=== PATIENT | female | born 1990 | race Caucasian/White ===

== ENCOUNTER 2016-04-01 21:46 | Emergency (ER) | payer SELFPAY ==
[2016-03-01 22:10] VITALS: BP 158/98
[~2016-04-01 21:46] MED LIST: ACET-704 PO; FLUO10CA13 PO; HYDR-963 PO; HYDR-971 PO; HYDR25CA PO; IBUP-1060 PO; NAPR550T PO; NITR100C62 PO; ONDA4TAB10 SL; ONDA4TAB7 PO; OXYC-323 PO; PRED20TA PO
[2016-04-01] MEDS ORDERED: MORPHINE SULFATE 4 MG/ML DISP.SYRIN. IM ONE (22:15)
[2016-04-01 22:19] LABS: NEG OBC UR NEG; POS OBC UR POS
--- NOTE | 2016-04-01 22:46 | ED.ADGEN ---
Past Medical History Past Medical History: Depression, Kidney Infection, Ovarian Cyst, Other Additional Past Medical Histor: PCOS,morbid obesity Past Surgical History: Cholecystectomy Additional Information: 03/18 ppd Alcohol Use: Rarely Drug Use: None Adult General Chief Complaint Chief Complaint: NAUSEA/VOMITING/DIARRHA HPI HPI Patient is a 26 year old woman, history of PCOS, renal calculi, morbid obesity , urinary tract infection, who presents to the emergency department with complaint of recurrence of her chronic lower abdominal pain. Patient states that she has an appointment for next left to be performed with her DRINK WAITER on 01 May, as her DRINK WAITER believes that she is experiencing endometriosis as the cause of these recurrent symptoms. Patient states that she is having nausea, and some vomiting, ecchymosis expressing cramping in her lower pelvic region which she states has not resolved with use of Tylenol home. She denies any fevers or chills, any injuries, any weakness emesis or tingling, any discharge or drainage, or any change from her typical Ellickson's. She states that she believes she is about to begin her period and this is the cause of the timing of the symptoms. She states that she did attempt to contact her DRINK WAITER wasn't able to hold the office. She cannot recall the name of her DRINK WAITER at this time. She states that previously she been given Dilaudid and Percocet for the symptoms. Denies any urinary complaints. No back pain or flank pain. Review of Systems Review of Systems Constitutional: Denies fever or chills. [] Eyes: Denies change in visual acuity. [] HENT: Denies nasal congestion or sore throat. [] Respiratory: Denies cough or shortness of breath. [] Cardiovascular: Denies chest pain or edema. [] GI: Lower cramping abdominal pain, across her pelvis, associated nausea, vomiting, bloody stools or diarrhea. : Denies dysuria. [] Musculoskeletal: Denies back pain or joint pain. [] Integument: Denies rash. [] Neurologic: Denies headache, focal weakness or sensory changes. [] Endocrine: Denies polyuria or polydipsia. [] Lymphatic: Denies swollen glands. [] Psychiatric: Denies depression or anxiety. [] Current Medications Current Medications Current Medications Medications (Trade) Dose Ordered Sig/Sharri Start Time Stop Time Status Last Admin Dose Admin Morphine Sulfate 4 mg 1X ONCE 04/01/16 22:15 04/01/16 22:16 DC 04/01/16 22:24 4 MG Allergies Allergies Allergies Coded Allergies Type Severity Reaction Last Updated Verified codeine Allergy Intermediate 11/11/15 Yes duloxetine Allergy Intermediate hives 05/12/15 Yes fentanyl Allergy Intermediate hives 05/12/15 Yes ketorolac Allergy Intermediate hives 05/12/15 Yes paroxetine Allergy Intermediate hives 05/12/15 Yes promethazine Allergy Intermediate hives 05/12/15 Yes tramadol Allergy Intermediate hives, Tolerates Morphine 05/12/15 Yes prochlorperazine Adverse Reaction Intermediate Anxiety 11/25/14 Yes Physical Exam Physical Exam Constitutional: Well developed, well nourished, no acute distress, non-toxic appearance. [] HENT: Normocephalic, atraumatic, bilateral external ears normal, oropharynx moist, no oral exudates, nose normal. [] Eyes: PERRLA, EOMI, conjunctiva normal, no discharge. [] Neck: Normal range of motion, no tenderness, supple, no stridor. [] Cardiovascular:Heart rate regular rhythm, no murmur , S1, S2, rubs or gallops. [ ] Lungs & Thorax: Bilateral breath sounds clear to auscultation, no wheezing, rhonchi, rales. No chest wall tenderness or crepitus. [] Abdomen: Bowel sounds normal, soft, obese, tenderness palpation across the pelvic region on the left. No masses, no pulsatile masses. [] Skin: Warm, dry, no erythema, no rash. [] Back: No tenderness, no CVA tenderness. [] Extremities: No tenderness, no cyanosis, no clubbing, ROM intact, no edema. [] Neurologic: Alert and oriented X 3, normal motor function, normal sensory function, no focal deficits noted. [] Psychologic: Affect normal, judgement normal, mood normal. [] Current Patient Data Vital Signs Vital Signs Date Time Temp Pulse Resp B/P Pulse Ox O2 Delivery O2 Flow Rate FiO2 04/01/16 22:24 18 04/01/16 22:09 98.0 112 163/88 97 Room Air 98.0 Lab Values Laboratory Tests Test 04/01/16 22:00 Urine Test Negative (NEG) EKG EKG Not indicated. [] Radiology/Procedures Radiology/Procedures Not indicated. [] Course & Med Decision Making Course & Med Decision Making Pertinent Labs and Imaging studies reviewed. (See chart for details) HCG is negative. Review of records show that the patient has been seen in the ED several times previously for similar complaints, at her last visit on March 01 she informed the care provider that she had an exploratory laparoscopy scheduled for a week and a half from that date. I did discuss this with the patient, she states that that was only her initial appointment, and that she does have the exploratory laparoscopy scheduled for next month as she initially stated. Patient is ambulatory in the room at this time, and although initially was preparing for a pelvic examination,m at this point states that she does not believe she is in need of a pelvic, as "nothing is different". I discussed with patient that I'm concerned by the pattern of ED usage for this chronic medical condition, I stated that I can evaluate her further at this time , however I will not be able to send her home with narcotics. Patient states that she understands this, is agreeable to receiving a dose of medication in the ED, and will follow up with her FINISH CARPENTER tomorrow morning. She will return for concerning symptoms as stated. Patient given a dose of morphine in the ED, and was discharged with plan as above with significant other at bedside. Dragon Disclaimer Dragon Disclaimer This electronic medical record was generated, in whole or in part, using a voice recognition dictation system. Departure Impression: Primary Impression: Pelvic pain Condition: IMPROVED DANTE HERNADEZ DO Apr 01, 2016 22:46
== END 2016-04-01 22:43 | disposition home or self-care (01) ==
LOC: ER 21:46
DX: R10.2 Pelvic and perineal pain (principal); R11.2 Nausea with vomiting, unspecified; F32.9 Major depressive disorder, single episode, unspecified; F17.200 Nicotine dependence, unspecified, uncomplicated; E66.01 Morbid (severe) obesity due to excess calories; Z87.442 Personal history of urinary calculi; Z87.440 Personal history of urinary (tract) infections; Z90.49 Acquired absence of other specified parts of digestive tract; Z88.5 Allergy status to narcotic agent; Z88.8 Allergy status to other drugs, medicaments and biological substances
CPT/HCPCS: 81025; 96372; 99283; J2270

== ENCOUNTER 2016-05-17 20:34 | Emergency (ER) | payer OTHER ==
[~2016-05-17] VITALS: Ht 162.6 cm; Wt 176.9 kg
[2016-05-17 20:42] VITALS: BP 160/109
[2016-05-17] MEDS ORDERED: OXYCODONE/APAP 5/325 TABLET. PO ONE (21:15)
[2016-05-17] MEDS ORDERED: OXYC-323 PO (21:53)
--- NOTE | 2016-05-17 21:54 | PHYS DOC ---
Past Medical History Past Medical History: Depression, Kidney Infection, Ovarian Cyst, Other Additional Past Medical Histor: PCOS,morbid obesity Past Surgical History: Cholecystectomy Alcohol Use: Rarely Drug Use: None Adult General Chief Complaint Chief Complaint: KNEE INJURY HPI HPI Patient is a 26 year old female who presents with left knee pain after injury at 2000 today. She states that she was going down the stairs and missed the last step. She twisted her knee but denies falling on the knee. She has not been able to walk since the injury. She does not have a PCP. Review of Systems Review of Systems Constitutional: Denies fever or chills. [] Musculoskeletal: Denies back pain. Reports left knee pain. Integument: Denies rash or skin lesions. Denies laceration, abrasion, or ecchymosis. Neurologic: Denies headache, focal weakness or sensory changes. [] Current Medications Current Medications Current Medications Medications (Trade) Dose Ordered Sig/Sharri Start Time Stop Time Status Last Admin Dose Admin Oxycodone/ Acetaminophen (Percocet 5/325) 1 tab 1X ONCE 05/17/16 21:15 05/17/16 21:16 DC 05/17/16 21:14 1 TAB Allergies Allergies Allergies Coded Allergies Type Severity Reaction Last Updated Verified codeine Allergy Intermediate 11/11/15 Yes duloxetine Allergy Intermediate hives 05/12/15 Yes fentanyl Allergy Intermediate hives 05/12/15 Yes ketorolac Allergy Intermediate hives 05/12/15 Yes paroxetine Allergy Intermediate hives 05/12/15 Yes promethazine Allergy Intermediate hives 05/12/15 Yes tramadol Allergy Intermediate hives, Tolerates Morphine 05/12/15 Yes prochlorperazine Adverse Reaction Intermediate Anxiety 11/25/14 Yes Physical Exam Physical Exam Constitutional: Well developed, well nourished, no acute distress, non-toxic appearance. Morbidly obese. HENT: Normocephalic, atraumatic, oropharynx moist. [] Eyes: PERRLA, EOMI, conjunctiva normal, no discharge. [] Skin: Warm, dry, no erythema, no rash. There is no laceration, abrasion, ecchymosis, or other external sign of injury. Extremities: Lateral left knee tenderness, ROM significantly decreased due to pain, no edema. 2+ DP pulse. Light touch sensation intact distally. Neurologic: Alert and oriented X 3, normal motor function, normal sensory function, no focal deficits noted. [] Psychologic: Affect normal, judgement normal, mood normal. [] Current Patient Data Vital Signs Vital Signs Date Time Temp Pulse Resp B/P Pulse Ox O2 Delivery O2 Flow Rate FiO2 05/17/16 21:14 18 05/17/16 20:42 98.2 98 98 Room Air 98.2 EKG EKG [] Radiology/Procedures Radiology/Procedures Three-view x-ray of the left knee reviewed and interpreted by myself with Dr. Richardson. There is a patellar tendon avulsion fracture at the tibial tuberosity. Course & Med Decision Making Course & Med Decision Making Pertinent Labs and Imaging studies reviewed. (See chart for details) Patient presents with lateral left knee pain after twisting injury. On initial exam, she is only tender over the lateral side of the knee. X-ray shows avulsion fracture of the patellar tendon at the tibial tuberosity. On reexamination, she is tender over the tibial tuberosity. A knee immobilizer is applied. The patient has crutches at home. She is discharged home with prescription for Percocet for pain. She is instructed to follow-up with orthopedics. Return precautions were discussed. She verbalizes understanding and agrees with plan. Dragon Disclaimer Dragon Disclaimer This electronic medical record was generated, in whole or in part, using a voice recognition dictation system. Departure Departure Impression: Primary Impression: Avulsion fracture of tibial tuberosity Disposition: 01 HOME, SELF-CARE Condition: STABLE Referrals: GERMAIN TOWNSEND II, MD Patient Instructions: Avulsion Fracture, Crutch Use, [id number], Knee Immobilizer, [id number] Additional Instructions: You have an avulsion fracture, or chip fracture, where the patellar tendon inserts into the tibia. Please keep the knee immobilizer on for the next 48 hours. If you are pain-free after 48 hours, you may remove the knee immobilizer. Otherwise, leave the immobilizer in place until follow-up with orthopedics. Please follow-up with the orthopedic doctor listed below. Please use crutches to remain nonweightbearing as long as you have the knee immobilizer on. Please take the prescribed pain medication as directed. Do not drive or operate heavy machinery while taking pain medication. Return to the emergency department if you have any new or concerning symptoms. Scripts Oxycodone/Apap 5-325 (Percocet 5-325 Mg Tablet)1 Each Tablet1 Tab PO PRN Q6HRS PRN PAIN #20 TAB Prov:DANTE OLIVEIRA 05/17/16 DANTE OLIVEIRA May 17, 2016 21:54
--- NOTE | 2016-05-18 08:37 | RAD ---
Examination: 3 views of the left knee History: History of twisting knee injury, lateral knee pain Comparison: None available Findings: The alignment of the knee joint grossly appears unremarkable. Small knee joint effusion is identified There is a fragmented appearance of the tibial tuberosity could be due to congenital nonfusion or avulsion fracture. Impression: Fragmented appearance of the tibial tuberosity could be congenital nonfusion or avulsion fracture. Correlate for point tenderness. Follow-up MRI can be considered.
== END 2016-05-17 22:00 | disposition home or self-care (01) ==
LOC: ER 20:34
DX: S82.152A Displaced fracture of left tibial tuberosity, initial encounter for closed fracture (principal); F32.9 Major depressive disorder, single episode, unspecified; E28.2 Polycystic ovarian syndrome; E66.01 Morbid (severe) obesity due to excess calories; Z68.44 Body mass index [BMI] 60.0-69.9, adult; Z90.49 Acquired absence of other specified parts of digestive tract; Z88.5 Allergy status to narcotic agent; Z88.8 Allergy status to other drugs, medicaments and biological substances; X58.XXXA Exposure to other specified factors, initial encounter; Y93.89 Activity, other specified; Y92.89 Other specified places as the place of occurrence of the external cause; Y99.8 Other external cause status
CPT/HCPCS: 29505; 73562; 99284-25

== ENCOUNTER 2016-05-21 10:59 | Emergency (ER) | payer OTHER ==
[~2016-05-21] VITALS: Ht 162.6 cm; Wt 176.9 kg
[2016-05-21 11:29] VITALS: BP 167/118
[2016-05-21] MEDS ORDERED: MORPHINE SULFATE 10 MG/ML VIAL. IM ONE (12:15)
[2016-05-21] MEDS ORDERED: ONDANSETRON ODT 4 MG TAB.RAPDIS PO ONE (12:15)
--- NOTE | 2016-05-21 12:27 | PHYS DOC ---
Past Medical History Past Medical History: Depression, Kidney Infection, Ovarian Cyst, Other Additional Past Medical Histor: PCOS,morbid obesity Past Surgical History: Cholecystectomy Alcohol Use: Rarely Drug Use: None Adult General Chief Complaint Chief Complaint: PAIN CONTROL HPI HPI Patient is a 26 year old female who presents with moderate left knee pain that has been going on for the last 5 days. Patient was seen in the ED 5 days ago when was diagnosed with a possible patellar fracture. She is currently stating she will follow-up with her doctor at orthopedic next week. She states the doctor at requested her to come to the ED to be given oxycodone without Tylenol because she states the Tylenol is making her vomit and she is out of pain medicines too. Review of Systems Review of Systems Constitutional: Denies fever or chills [] Eyes: Denies change in visual acuity, redness, or eye pain [] Musculoskeletal: Knee pain Integument: Denies rash or skin lesions [] Neurologic: Denies headache, focal weakness or sensory changes [] Endocrine: Denies polyuria or polydipsia [] Current Medications Current Medications Current Medications Medications (Trade) Dose Ordered Sig/Sharri Start Time Stop Time Status Last Admin Dose Admin Morphine Sulfate 5 mg 1X ONCE 05/21/16 12:15 05/21/16 12:16 DC 05/21/16 12:39 5 MG Ondansetron HCl (Zofran Odt) 4 mg 1X ONCE 05/21/16 12:15 05/21/16 12:16 DC 05/21/16 12:38 4 MG Allergies Allergies Allergies Coded Allergies Type Severity Reaction Last Updated Verified codeine Allergy Intermediate 11/11/15 Yes duloxetine Allergy Intermediate hives 05/12/15 Yes fentanyl Allergy Intermediate hives 05/12/15 Yes ketorolac Allergy Intermediate hives 05/12/15 Yes paroxetine Allergy Intermediate hives 05/12/15 Yes promethazine Allergy Intermediate hives 05/12/15 Yes tramadol Allergy Intermediate hives, Tolerates Morphine 05/12/15 Yes prochlorperazine Adverse Reaction Intermediate Anxiety 11/25/14 Yes Physical Exam Physical Exam Constitutional: Well developed, well nourished, no acute distress, non-toxic appearance. [] HENT: Normocephalic, atraumatic, bilateral external ears normal, oropharynx moist, no oral exudates, nose normal. [] Back: No tenderness, no CVA tenderness. [] Extremities: Obese patient, and left knee with no obvious edema or ecchymosis. Tenderness on palpation of the left anterior knee. Patient not able to tolerate range of motion to the left knee. +2 left pedal pulse. Cap refill less than 2 seconds and left lower extremity. Sensation intact to the left lower extremity. Neurologic: Alert and oriented X 3, normal motor function, normal sensory function, no focal deficits noted. [] Psychologic: Affect normal, judgement normal, mood normal. [] Current Patient Data Vital Signs Vital Signs Date Time Temp Pulse Resp B/P Pulse Ox O2 Delivery O2 Flow Rate FiO2 05/21/16 12:39 Room Air 05/21/16 11:10 98.0 119 20 97 98.0 EKG EKG [] Radiology/Procedures Radiology/Procedures [] Course & Med Decision Making Course & Med Decision Making Pertinent Labs and Imaging studies reviewed. (See chart for details) Patient is in the ED with left knee pain after being diagnosed with a possible patellar fracture 5 days ago. She is requesting oxycodone with no Tylenol stating that Tylenol is making her vomit. Informed patient I can give her Zofran to take with the oxycodone but I will not give her plain oxycodone. She has an appointment at orthopedic doctor next week. Informed patient to make sure she follows-up, informed patient if she keeps coming to the ED for chronic pain management we will stop giving her pain medicine. Dragon Disclaimer Dragon Disclaimer This electronic medical record was generated, in whole or in part, using a voice recognition dictation system. Departure Departure Impression: Primary Impression: Knee pain, left Disposition: 01 HOME, SELF-CARE Condition: STABLE Referrals: NO PCP (PCP) Follow-up with your own orthopedic doctor at hospital as soon as possible Patient Instructions: Knee - Patella Problems Additional Instructions: You were seen for ongoing knee pain. Please follow up with your doctor at as soon as possible Scripts Ondansetron (Zofran Odt)4 Mg Tab.rapdis1 Tab SL Q8HRS #15 TAB Prov:LB MONSON APRN 05/21/16 Oxycodone/Apap 5-325 (Percocet 5-325 Mg Tablet)1 Each Tablet1-2 Tab PO Q4-6HRS # 12 TAB Prov:MUTUNGA,LB AASHISH 05/21/16 Oxycodone/Apap 5-325 (Percocet 5-325 Mg Tablet)1 Each Tablet1-2 Tab PO Q4-6HRS # 12 TAB Prov:IONALB AASHISH 05/21/16 Ondansetron (Zofran Odt)4 Mg Tab.rapdis1 Tab SL Q8HRS #15 TAB Prov:LB MONSON APRN 05/21/16 Problem Qualifiers Primary Impression: Knee pain, left Chronicity: acute Qualified Code: M25.562 - Pain in left knee LB MONSON AASHISH May 21, 2016 12:27
[2016-05-21] MEDS ORDERED: OXYC-323 PO ×2 (12:33→12:45)
[2016-05-21] MEDS ORDERED: ONDA4TAB10 SL ×2 (12:33→12:45)
== END 2016-05-21 12:47 | disposition home or self-care (01) ==
LOC: ER 10:59
DX: M25.562 Pain in left knee (principal); E66.01 Morbid (severe) obesity due to excess calories; F32.9 Major depressive disorder, single episode, unspecified; E28.2 Polycystic ovarian syndrome; Z68.44 Body mass index [BMI] 60.0-69.9, adult; Z88.5 Allergy status to narcotic agent; Z88.8 Allergy status to other drugs, medicaments and biological substances; Z90.49 Acquired absence of other specified parts of digestive tract
CPT/HCPCS: 96372; 99283; J2270; Q0162

== ENCOUNTER 2016-06-16 18:26 | Emergency (ER) | payer OTHER ==
[~2016-06-16] VITALS: Ht 162.6 cm; Wt 179.2 kg
--- NOTE | 2016-06-16 19:20 | ED.ADGEN ---
Past Medical History Past Medical History: Depression, Kidney Infection, Ovarian Cyst, Other Additional Past Medical Histor: PCOS,morbid obesity Past Surgical History: Cholecystectomy Alcohol Use: None Drug Use: None Adult General Chief Complaint Chief Complaint: PELVIC PAIN HPI HPI Patient is a 26 year old female presents emergency department complaining of lower abdominal pain. She states the pain is consistent with her endometriosis except for that it usually occurs 2 days prior to her. In this time is been going on for 3 days that she has yet to start her period. She denies any nausea or vomiting but reports that ibuprofen that she is been taking has not been adequate for the pain. Review of Systems Review of Systems Constitutional: Denies fever or chills. [] Eyes: Denies change in visual acuity. [] HENT: Denies nasal congestion or sore throat. [] Respiratory: Denies cough or shortness of breath. [] Cardiovascular: Denies chest pain or edema. [] GI: Denies abdominal pain, nausea, vomiting, bloody stools or diarrhea. [] : Denies dysuria. [] Musculoskeletal: Denies back pain or joint pain. [] Integument: Denies rash. [] Neurologic: Denies headache, focal weakness or sensory changes. [] Endocrine: Denies polyuria or polydipsia. [] Lymphatic: Denies swollen glands. [] Psychiatric: Denies depression or anxiety. [] Current Medications Current Medications Current Medications Medications (Trade) Dose Ordered Sig/Sharri Start Time Stop Time Status Last Admin Dose Admin Hydromorphone HCl (Dilaudid) 2 mg 1X ONCE 06/16/16 19:30 06/16/16 19:31 DC 06/16/16 19:24 2 MG Allergies Allergies Allergies Coded Allergies Type Severity Reaction Last Updated Verified codeine Allergy Intermediate 11/11/15 Yes duloxetine Allergy Intermediate hives 05/12/15 Yes fentanyl Allergy Intermediate hives 05/12/15 Yes ketorolac Allergy Intermediate hives 05/12/15 Yes paroxetine Allergy Intermediate hives 05/12/15 Yes promethazine Allergy Intermediate hives 05/12/15 Yes tramadol Allergy Intermediate hives, Tolerates Morphine 05/12/15 Yes prochlorperazine Adverse Reaction Intermediate Anxiety 11/25/14 Yes Physical Exam Physical Exam Constitutional: Well developed, well nourished, no acute distress, non-toxic appearance. [] HENT: Normocephalic, atraumatic, bilateral external ears normal, oropharynx moist, no oral exudates, nose normal. [] Eyes: PERRLA, EOMI, conjunctiva normal, no discharge. [] Neck: Normal range of motion, no tenderness, supple, no stridor. [] Cardiovascular:Heart rate regular rhythm, no murmur [] Lungs & Thorax: Bilateral breath sounds clear to auscultation [] Abdomen: Bowel sounds normal, soft, no tenderness, no masses, no pulsatile masses. [] Skin: Warm, dry, no erythema, no rash. [] Back: No tenderness, no CVA tenderness. [] Extremities: No tenderness, no cyanosis, no clubbing, ROM intact, no edema. [] Neurologic: Alert and oriented X 3, normal motor function, normal sensory function, no focal deficits noted. [] Psychologic: Affect normal, judgement normal, mood normal. [] Current Patient Data Vital Signs Vital Signs Date Time Temp Pulse Resp B/P Pulse Ox O2 Delivery O2 Flow Rate FiO2 06/16/16 20:04 Room Air 06/16/16 18:35 98.6 115 24 196/97 95 98.6 EKG EKG [] Radiology/Procedures Radiology/Procedures [] Course & Med Decision Making Course & Med Decision Making Pertinent Labs and Imaging studies reviewed. (See chart for details) Patient got good pain relief with a dose of IM Dilaudid here. I did write her prescription for Percocet and instructed her to follow-up with her MEDIA SALES REPRESENTATIVE tomorrow. [] Dragon Disclaimer Dragon Disclaimer This electronic medical record was generated, in whole or in part, using a voice recognition dictation system. ANTIONE CAR MD Jun 16, 2016 19:19
[2016-06-16] MEDS ORDERED: HYDROMORPHONE 2 MG/ML VIAL. IM ONE (19:30)
[2016-06-16 20:10] VITALS: BP 159/82
[2016-06-16] MEDS ORDERED: OXYC-323 PO (20:13)
== END 2016-06-16 20:25 | disposition home or self-care (01) ==
LOC: ER 18:26
DX: R10.30 Lower abdominal pain, unspecified (principal); E66.01 Morbid (severe) obesity due to excess calories; Z68.44 Body mass index [BMI] 60.0-69.9, adult; Z90.49 Acquired absence of other specified parts of digestive tract; Z88.6 Allergy status to analgesic agent; Z88.5 Allergy status to narcotic agent; Z88.8 Allergy status to other drugs, medicaments and biological substances
CPT/HCPCS: 96372; 99283; J1170

== ENCOUNTER 2016-06-26 17:49 | Emergency (ER) | payer OTHER ==
[~2016-06-26] VITALS: Ht 162.6 cm; Wt 176.9 kg
[2016-06-26 18:24] VITALS: BP 159/82
[2016-06-26] MEDS ORDERED: HYDROMORPHONE 2 MG/ML VIAL. IV ONE (20:30)
[2016-06-26] MEDS ORDERED: ONDANSETRON PF 4 MG/2 ML VIAL. IV ONE (20:30)
--- NOTE | 2016-06-26 20:30 | PHYS DOC ---
Past Medical History Past Medical History: Depression, Kidney Infection, Ovarian Cyst, Other Additional Past Medical Histor: PCOS,morbid obesity, endometriosis Past Surgical History: Cholecystectomy Alcohol Use: None Drug Use: None Adult General Chief Complaint Chief Complaint: PELVIC PAIN HPI HPI Patient is a 26 year old female who presents with complaint of severe pelvic pain. Patient said multiple visits to the emergency department for similar complaints. Patient has long-standing endometriosis and chronic recurrent pelvic pain. Patient states that her symptoms are similar to previous exacerbations. Patient was seen on June 15 at this facility and was treated with IM Dilaudid which helped with the patient's pain. Patient was taking Percocet, Zofran, and ibuprofen. Patient states she ran out of her Percocet which has caused her symptoms to worsen. The patient has associated nausea. Patient denies fever, dysuria, vaginal bleeding, or abnormal vaginal discharge. Patient states that she is here for pain control. Patient rates her pain currently is 10 out of 10. Review of Systems Review of Systems Constitutional: Denies fever or chills [] Eyes: Denies change in visual acuity, redness, or eye pain [] HENT: Denies nasal congestion or sore throat [] Respiratory: Denies cough or shortness of breath [] Cardiovascular: Denies chest pain or edema [] GI: Nausea, abdominal pain, denies bloody stools or diarrhea [] : Pelvic pain [] Musculoskeletal: Denies back pain or joint pain [] Integument: Denies rash or skin lesions [] Neurologic: Denies headache, focal weakness or sensory changes [] Current Medications Current Medications Current Medications Medications (Trade) Dose Ordered Sig/[facility] Start Time Stop Time Status Last Admin Dose Admin Hydromorphone HCl (Dilaudid) 1 mg 1X ONCE 06/26/16 20:30 06/26/16 20:31 DC 06/26/16 20:37 1 MG Ondansetron HCl (Zofran) 4 mg 1X ONCE 06/26/16 20:30 06/26/16 20:31 DC 06/26/16 20:37 4 MG Oxycodone/ Acetaminophen (Percocet 10/325) 1 tab 1X ONCE 06/26/16 21:15 06/26/16 21:16 DC 06/26/16 21:20 1 TAB Allergies Allergies Allergies Coded Allergies Type Severity Reaction Last Updated Verified codeine Allergy Intermediate 11/11/15 Yes duloxetine Allergy Intermediate hives 05/12/15 Yes fentanyl Allergy Intermediate hives 05/12/15 Yes ketorolac Allergy Intermediate hives 05/12/15 Yes paroxetine Allergy Intermediate hives 05/12/15 Yes promethazine Allergy Intermediate hives 05/12/15 Yes tramadol Allergy Intermediate hives, Tolerates Morphine 05/12/15 Yes prochlorperazine Adverse Reaction Intermediate Anxiety 11/25/14 Yes Physical Exam Physical Exam Constitutional: Alert, afebrile, morbidly obese, appears in moderate discomfort. [] HENT: Normocephalic, atraumatic, bilateral external ears normal, oropharynx moist, no oral exudates, nose normal. [] Eyes: PERRLA, EOMI, conjunctiva normal, no discharge. [] Neck: Normal range of motion, no tenderness, supple, no stridor. [] Cardiovascular:Heart rate regular rhythm, no murmur [] Lungs & Thorax: Bilateral breath sounds clear to auscultation [] Abdomen: Bowel sounds normal, soft, suprapubic tenderness to palpation, no masses, no pulsatile masses. [] Skin: Warm, dry, no erythema, no rash. [] Back: No tenderness, no CVA tenderness. [] Extremities: No tenderness, no cyanosis, no clubbing, ROM intact, no edema. [] Neurologic: Alert and oriented X 3, normal motor function, normal sensory function, no focal deficits noted. [] Current Patient Data Vital Signs Vital Signs Date Time Temp Pulse Resp B/P Pulse Ox O2 Delivery O2 Flow Rate FiO2 06/26/16 21:20 Room Air 06/26/16 18:24 98.4 109 28 159/82 98 98.4 Lab Values Laboratory Tests Test 06/26/16 19:47 06/26/16 20:45 POC Urine HCG, Qualitative Hcg negative (Negative) Urine Collection Type Unknown Urine Color Yellow Urine Clarity Clear Urine pH 8.0 Urine Specific [place] 1.015 Urine Protein Negativemg/dL (NEG-TRACE) Urine Glucose (UA) Negativemg/dL (NEG) Urine Ketones (Stick) Negativemg/dL (NEG) Urine Blood Negative (NEG) Urine Nitrite Negative (NEG) Urine Bilirubin Negative (NEG) Urine Urobilinogen Dipstick 0.2mg/dL (0.2 mg/dL) Urine Leukocyte Esterase Negative (NEG) Urine RBC 0/HPF (0-2) Urine WBC 0/HPF (0-4) Urine Squamous Epithelial Cells Few/LPF Urine Bacteria 0/HPF (0-FEW) EKG EKG Not performed [] Radiology/Procedures Radiology/Procedures Not performed [] Course & Med Decision Making Course & Med Decision Making Pertinent Labs and Imaging studies reviewed. (See chart for details) The patient has multiple visits to this emergency department for similar complaints. I am highly suspicious of drug-seeking behavior in this patient. After speaking with the patient, I agreed to treat the patient with an initial dose of IV Dilaudid to assist with immediate pain control which did help with patient's symptoms. The patient was also given an oral dose of Percocet which she took in the emergency department. I did explain to the patient that due to the chronic nature of her symptoms, I would not be able to write any narcotic prescription medications for the patient fell as I recommended that she follow- up with her primary doctor in order to receive further prescriptions for her chronic pain syndrome. He recommended that the patient come back to the emergency department for any worsening symptoms. Patient was understanding and in agreement with treatment plan. Dragon Disclaimer Dragon Disclaimer This electronic medical record was generated, in whole or in part, using a voice recognition dictation system. Departure Departure Impression: Primary Impression: Chronic pelvic pain in female Disposition: 01 HOME, SELF-CARE Condition: IMPROVED Referrals: NO PCP (PCP) Patient Instructions: Chronic Pain Additional Instructions: Follow-up with a primary physician in the next 3-5 days. Return to the emergency department for any worsening symptoms. Scripts Ondansetron (Zofran Odt)4 Mg Tab.rapdis1 Tab SL Q8HRS PRN NAUSEA/VOMITING #15 TAB Prov:HUNG EDGE MD 06/26/16 HUNG EDGE MD Jun 26, 2016 20:30
[2016-06-26 20:49] LABS: BILIRUBIN,URINE NEGATIVE (NEG); GLUCOSE,URINE NEGATIVE (NEG); NITRITE,URINE NEGATIVE (NEG); PROTEIN,URINE NEGATIVE (NEG-TRACE); UROBILINOGEN,URINE 0.2 mg/dL (0.2 mg/dL)
[2016-06-26 20:56] LABS: BACTERIA,URINE 0 /HPF (0-FEW); RBC,URINE 0 /HPF (0-2); SQUAMOUS EPITHELIAL CELL,UR FEW /LPF; WBC,URINE 0 /HPF (0-4)
[2016-06-26] MEDS ORDERED: ONDA4TAB10 SL (21:15)
[2016-06-26] MEDS ORDERED: OXYCODONE/APAP 10/325 TABLET. PO ONE (21:15)
[2016-06-27] MEDS ORDERED: ONDA4TAB7 PO (16:23)
[2016-06-27] MEDS ORDERED: DICY10CA53 PO (16:23)
== END 2016-06-26 21:24 | disposition home or self-care (01) ==
LOC: ER 17:49
DX: G89.29 Other chronic pain (principal); R10.2 Pelvic and perineal pain; E28.2 Polycystic ovarian syndrome; Z90.49 Acquired absence of other specified parts of digestive tract; E66.01 Morbid (severe) obesity due to excess calories; Z68.44 Body mass index [BMI] 60.0-69.9, adult; Z86.19 Personal history of other infectious and parasitic diseases; Z87.19 Personal history of other diseases of the digestive system; Z88.5 Allergy status to narcotic agent; Z88.6 Allergy status to analgesic agent; Z88.8 Allergy status to other drugs, medicaments and biological substances
CPT/HCPCS: 81001; 81025; 96374; 96375; 99284; J1170; J2405

== ENCOUNTER 2016-06-27 12:48 | Emergency (ER) | payer OTHER ==
[~2016-06-27] VITALS: Ht 162.6 cm; Wt 176.9 kg
[2016-06-27 13:48] LABS: BILIRUBIN,URINE NEGATIVE (NEG); GLUCOSE,URINE NEGATIVE (NEG); NITRITE,URINE NEGATIVE (NEG); PROTEIN,URINE NEGATIVE (NEG-TRACE); UROBILINOGEN,URINE 0.2 mg/dL (0.2 mg/dL)
[2016-06-27 14:07] LABS: BACTERIA,URINE FEW /HPF (0-FEW); RBC,URINE >40 /HPF (0-2); SQUAMOUS EPITHELIAL CELL,UR MANY /LPF; WBC,URINE 0 /HPF (0-4)
[2016-06-27] MEDS ORDERED: IV NORMAL SALINE 1000ML BAG 1,000 ML IV SCH (14:14)
--- NOTE | 2016-06-27 14:21 | ED.ADGEN ---
Past Medical History Past Medical History: Depression, Kidney Infection, Kidney Stone, Ovarian Cyst , Other Additional Past Medical Histor: PCOS,morbid obesity, endometriosis Past Surgical History: Cholecystectomy Additional Information: 0.5 PPD Alcohol Use: None Drug Use: None Adult General Chief Complaint Chief Complaint: ABDOMINAL PAIN HPI HPI Patient is a 26 year old [woman, history of endometriosis, ovarian cysts, renal calculi, who presents the emergency department with a complaint of right sided abdominal pain and right flank pain. Patient states that she was seen in the ED yesterday, that time she thought that her symptoms may be due to endometriosis nose is more of a cramping sensation, however the pain has gotten worse, has now radiated up into her right flank, and she noted hematuria this morning. Patient states she called her MAKE UP WORKER, and was told to come to the ED for additional evaluation as it may have recurrent renal calculi versus endometriosis. Patient is complaining of nausea, vomiting, severe pain, states that she did take Motrin at home without relief. Denies any weakness emesis or tingling, any chest pain or shortness breath, any fevers or chills, any injuries , any travel or recent surgery. No discharge or drainage from the vagina, no concerns for STI exposures. Review of Systems Review of Systems Constitutional: Denies fever or chills. [] Eyes: Denies change in visual acuity. [] HENT: Denies nasal congestion or sore throat. [] Respiratory: Denies cough or shortness of breath. [] Cardiovascular: Denies chest pain or edema. [] GI: Denies abdominal pain, nausea, vomiting, bloody stools or diarrhea. [] : Denies hematuria, flank pain and right lower quadrant abdominal pain. Musculoskeletal: Denies back pain or joint pain. [] Integument: Denies rash. [] Neurologic: Denies headache, focal weakness or sensory changes. [] Endocrine: Denies polyuria or polydipsia. [] Lymphatic: Denies swollen glands. [] Psychiatric: Denies depression or anxiety. [] Current Medications Current Medications Current Medications Medications (Trade) Dose Ordered Sig/[facility] Start Time Stop Time Status Last Admin Dose Admin Morphine Sulfate 4 mg 4 mg PRN Q15MIN PRN 06/27/16 14:15 06/27/16 16:37 DC 06/27/16 15:18 4 MG Ondansetron HCl (Zofran) 4 mg 1X ONCE 06/27/16 14:45 06/27/16 14:46 DC 06/27/16 14:36 4 MG Sodium Chloride (Iv Sodium Chloride 0.9% 1000ml Bag) 1,000 ml @ 1,000 mls/hr Q1H 06/27/16 14:14 06/27/16 15:13 DC 06/27/16 14:36 1,000 MLS/HR Allergies Allergies Allergies Coded Allergies Type Severity Reaction Last Updated Verified codeine Allergy Intermediate 11/11/15 Yes duloxetine Allergy Intermediate hives 05/12/15 Yes fentanyl Allergy Intermediate hives 05/12/15 Yes ketorolac Allergy Intermediate hives 05/12/15 Yes paroxetine Allergy Intermediate hives 05/12/15 Yes promethazine Allergy Intermediate hives 05/12/15 Yes tramadol Allergy Intermediate hives, Tolerates Morphine 05/12/15 Yes prochlorperazine Adverse Reaction Intermediate Anxiety 11/25/14 Yes Physical Exam Physical Exam Constitutional: Well developed, morbidly obese, no acute distress, non-toxic appearance. [] HENT: Normocephalic, atraumatic, bilateral external ears normal, oropharynx moist, no oral exudates, nose normal. [] Eyes: PERRLA, EOMI, conjunctiva normal, no discharge. [] Neck: Normal range of motion, no tenderness, supple, no stridor. [] Cardiovascular:Heart rate regular rhythm, no murmur, S1, S2, no rubs or gallops. Mildly tachycardic. [] Lungs & Thorax: Bilateral breath sounds clear to auscultation no wheezing, rhonchi, rales. No chest wall crepitus or tenderness. [] Abdomen: Bowel sounds normal, obese, soft, tenderness to palpation in the right lower quadrant so pubic region, no masses, no pulsatile masses. [] Skin: Warm, dry, no erythema, no rash. [] Back: No tenderness, positive for right-sided CVA tenderness] Extremities: No tenderness, no cyanosis, no clubbing, ROM intact, no edema. [] Neurologic: Alert and oriented X 3, normal motor function, normal sensory function, no focal deficits noted. [] Psychologic: Affect normal, judgement normal, mood normal. [] Current Patient Data Vital Signs Vital Signs Date Time Temp Pulse Resp B/P Pulse Ox O2 Delivery O2 Flow Rate FiO2 06/27/16 16:25 102 23 146/104 97 Room Air 06/27/16 13:16 98 98.0 Lab Values Laboratory Tests Test 06/27/16 12:40 06/27/16 13:15 06/27/16 13:29 POC Urine HCG, Qualitative Hcg negative (Negative) Urine Collection Type Unknown Urine Color Yellow Urine Clarity Cloudy Urine pH 8.0 Urine Specific [place] 1.020 Urine Protein Negativemg/dL (NEG-TRACE) Urine Glucose (UA) Negativemg/dL (NEG) Urine Ketones (Stick) Negativemg/dL (NEG) Urine Blood Large (NEG) Urine Nitrite Negative (NEG) Urine Bilirubin Negative (NEG) Urine Urobilinogen Dipstick 0.2mg/dL (0.2 mg/dL) Urine Leukocyte Esterase Small (NEG) Urine RBC >40/HPF (0-2) Urine WBC 0/HPF (0-4) Urine Squamous Epithelial Cells Many/LPF Urine Bacteria Few/HPF (0-FEW) White Blood Count 12.1x10^3/uL (4.0-11.0) H Red Blood Count 4.61x10^6/uL (3.50-5.40) Hemoglobin 13.0g/dL (12.0-15.5) Hematocrit 39.6% (36.0-47.0) Mean Corpuscular Volume 86fL (79-100) Mean Corpuscular Hemoglobin 28pg (25-35) Mean Corpuscular Hemoglobin Concent 33g/dL (31-37) Red Cell Distribution Width 15.3% (11.5-14.5) H Platelet Count 313x10^3/uL (140-400) Neutrophils (%) (Auto) 75% (31-73) H Lymphocytes (%) (Auto) 19% (24-48) L Monocytes (%) (Auto) 4% (0-9) Eosinophils (%) (Auto) 2% (0-3) Basophils (%) (Auto) 1% (0-3) Neutrophils # (Auto) 9.1x10^3uL (1.8-7.7) H Lymphocytes # (Auto) 2.2x10^3/uL (1.0-4.8) Monocytes # (Auto) 0.4x10^3/uL (0.0-1.1) Eosinophils # (Auto) 0.2x10^3/uL (0.0-0.7) Basophils # (Auto) 0.1x10^3/uL (0.0-0.2) Sodium Level 133mmol/L (136-145) L Potassium Level 3.7mmol/L (3.5-5.1) Chloride Level 101mmol/L (98-107) Carbon Dioxide Level 29mmol/L (21-32) Anion Gap 3 (6-14) L Blood Urea Nitrogen 13mg/dL (7-20) Creatinine 0.8mg/dL (0.6-1.0) Estimated GFR (Cockcroft-Gault) 86.7 BUN/Creatinine Ratio 16 (6-20) Glucose Level 96mg/dL (70-99) Calcium Level 9.1mg/dL (8.5-10.1) Total Bilirubin 0.3mg/dL (0.2-1.0) Aspartate Amino Transferase (AST) 37U/L (15-37) Alanine Aminotransferase (ALT) 41U/L (14-59) Alkaline Phosphatase 82U/L (46-116) Total Protein 7.7g/dL (6.4-8.2) Albumin 3.4g/dL (3.4-5.0) Albumin/Globulin Ratio 0.8 (1.0-1.7) L Laboratory Tests 06/27/16 13:29 Laboratory Tests 06/27/16 13:29 EKG EKG Not indicated. [] Radiology/Procedures Radiology/Procedures [] [facility] [address] [address], [place] [id number] IMAGING REPORT Signed PATIENT: DONNA LUI ACCOUNT: [id number] : 1990 LOCATION: ER AGE: 26 SEX: F EXAM STATUS: REG ER ORD. PHYSICIAN: DANTE HERNADEZ DO REASON: R sided abd/flank pain, hematuria PROCEDURE: CT ABDOMEN PELVIS WO CONTRAST CT of the abdomen and pelvis without contrast, 06/27/2016: History: Severe right sided pain, hematuria Noncontrast scans were obtained through the urinary tract utilizing the renal stone protocol. No intrarenal calculi are identified. The renal collecting systems and ureters are not dilated. No ureteral calculus is identified. The partially filled urinary bladder is unremarkable. The gallbladder is surgically absent. The liver is at the upper limits of normal in size. No pancreatic abnormality is seen. The spleen is unremarkable. No abdominal or pelvic adenopathy is seen. The bowel loops are not dilated. No dilated appendix or pericecal inflammation is evident. The uterus and ovaries are of normal size. No free fluid or free air is evident in the abdomen or pelvis. IMPRESSION: No urinary tract calculi are identified. PQRS Compliance Statement: One or more of the following individualized dose reduction techniques were utilized for this examination: 1. Automated exposure control 2. Adjustment of the mA and/or kV according to patient size 3. Use of iterative reconstruction technique DICTATED and SIGNED BY: JEAN GIRALDO MD DATE: 06/27/16 1518 CC: DANTE HERNADEZ DO; NO PCP ~ Course & Med Decision Making Course & Med Decision Making Pertinent Labs and Imaging studies reviewed. (See chart for details) Patient complaining of pain in the right flank, also hematuria. Has history of renal calculi, based on her body habitus, do not believe that ultrasound would be effective, therefore if after discussion at bedside, patient is agreeable CT of abdomen and pelvis to further elucidate her symptoms. Laboratory studies obtained, no concerning findings identified, patient's hCG negative, aside from blood, no evidence of infection or other concerning findings on urinalysis. CT of abdomen and pelvis not reveal any evidence of concerning findings, no renal calculi or other abnormality. Patient received several doses of pain medication , antiemetics I fluids in the ED. On reevaluation she states she is feeling some pain still, but has had no vomiting or diarrhea in the emergency department. I discussed the findings, with no evidence of concerning abnormalities identified, and plan for the patient to follow-up with her MAKE UP WORKER and a primary care provider, patient also prescribed Zofran and Bentyl to be used as needed, we did discuss concerning symptoms that prompt return to the ED for additional evaluation. Patient voiced understanding and agreement with plan as stated, discharged home in stable condition with family with plan as above. Dragon Disclaimer Dragon Disclaimer This electronic medical record was generated, in whole or in part, using a voice recognition dictation system. Departure Impression: Primary Impression: Abdominal pain Additional Impression: Hematuria Disposition: HOME, SELF-CARE Condition: IMPROVED Scripts Dicyclomine Hcl (Bentyl)10 Mg [id number] Mg PO QID PRN PAIN #12 TAB Prov:DANTE HERNADEZ DO 06/27/16 Ondansetron Hcl (Zofran)4 Mg Tablet4 Mg PO BID PRN NAUSEA/VOMITING #12 TAB Prov:DANTE HERNADEZ DO 06/27/16 Problem Qualifiers DANTE HERNADEZ DO Jun 27, 2016 14:21
[2016-06-27 14:27] LABS: BASO # 0.1 x10^3/uL (0.0-0.2); BASO % 1 % (0-3); EOS % 2 % (0-3); HEMATOCRIT 39.6 % (36.0-47.0); LYMPH # 2.2 x10^3/uL (1.0-4.8); LYMPH % 19 % (24-48); MEAN CORPUSCULAR HEMOGLOBIN 28 pg (25-35); MEAN CORPUSCULAR HGB CONC 33 g/dL (31-37); MEAN CORPUSCULAR VOLUME 86 fL (79-100); MONO % 4 % (0-9); NEUT % 75 % (31-73); PLATELET COUNT 313 x10^3/uL (140-400); RED BLOOD COUNT 4.61 x10^6/uL (3.50-5.40); RED CELL DISTRIBUTION WIDTH 15.3 % (11.5-14.5); WHITE BLOOD COUNT 12.1 x10^3/uL (4.0-11.0)
[2016-06-27] MEDS: MORPHINE SULFATE 4 MG/ML DISP.SYRIN. IV/SQ PRN ×2 (14:38→15:18)
[2016-06-27] MEDS ORDERED: ONDANSETRON PF 4 MG/2 ML VIAL. IV ONE (14:45)
[2016-06-27 14:56] LABS: ALBUMIN 3.4 g/dL (3.4-5.0); ALBUMIN/GLOBULIN RATIO 0.8 (1.0-1.7); CALCIUM 9.1 mg/dL (8.5-10.1); CREATININE 0.8 mg/dL (0.6-1.0); GFR 86.7; POTASSIUM 3.7 mmol/L (3.5-5.1); TOTAL BILIRUBIN 0.3 mg/dL (0.2-1.0); TOTAL PROTEIN 7.7 g/dL (6.4-8.2)
--- NOTE | 2016-06-27 15:26 | RAD ---
CT of the abdomen and pelvis without contrast, 06/27/2016: History: Severe right sided pain, hematuria Noncontrast scans were obtained through the urinary tract utilizing the renal stone protocol. No intrarenal calculi are identified. The renal collecting systems and ureters are not dilated. No ureteral calculus is identified. The partially filled urinary bladder is unremarkable. The gallbladder is surgically absent. The liver is at the upper limits of normal in size. No pancreatic abnormality is seen. The spleen is unremarkable. No abdominal or pelvic adenopathy is seen. The bowel loops are not dilated. No dilated appendix or pericecal inflammation is evident. The uterus and ovaries are of normal size. No free fluid or free air is evident in the abdomen or pelvis. IMPRESSION: No urinary tract calculi are identified. PQRS Compliance Statement: One or more of the following individualized dose reduction techniques were utilized for this examination: 1. Automated exposure control 2. Adjustment of the mA and/or kV according to patient size 3. Use of iterative reconstruction technique
[2016-06-27] MEDS ORDERED: ONDA4TAB7 PO (16:23)
[2016-06-27] MEDS ORDERED: DICY10CA53 PO (16:23)
[2016-06-27 16:25] VITALS: BP 146/104
== END 2016-06-27 16:33 | disposition home or self-care (01) ==
LOC: ER 12:48
DX: R10.9 Unspecified abdominal pain (principal); R11.2 Nausea with vomiting, unspecified; R31.9 Hematuria, unspecified; N80.1 Endometriosis of ovary; F32.9 Major depressive disorder, single episode, unspecified; Z87.442 Personal history of urinary calculi; E66.01 Morbid (severe) obesity due to excess calories; E28.2 Polycystic ovarian syndrome; F17.200 Nicotine dependence, unspecified, uncomplicated; Z90.49 Acquired absence of other specified parts of digestive tract; Z88.5 Allergy status to narcotic agent; Z88.8 Allergy status to other drugs, medicaments and biological substances
CPT/HCPCS: 36415; 74176; 80053; 81001; 81025; 85027; 96361; 96374; 96375; 96376; 99285; J2270; J2405; J7030

== ENCOUNTER 2016-07-23 20:37 | Emergency (ER) | payer SELFPAY ==
[~2016-07-23] VITALS: Ht 162.6 cm; Wt 176.9 kg
[~2016-07-23 20:37] MED LIST changes: +DICY10CA53 PO
[2016-07-23 21:29] LABS: BASO # 0.1 x10^3/uL (0.0-0.2); BASO % 1 % (0-3); EOS % 3 % (0-3); HEMATOCRIT 38.5 % (36.0-47.0); HEMOGLOBIN 13.6 g/dL (12.0-15.5); LYMPH # 2.3 x10^3/uL (1.0-4.8); LYMPH % 21 % (24-48); MEAN CORPUSCULAR HEMOGLOBIN 30 pg (25-35); MEAN CORPUSCULAR HGB CONC 35 g/dL (31-37); MEAN CORPUSCULAR VOLUME 85 fL (79-100); MONO % 4 % (0-9); NEUT % 71 % (31-73); PLATELET COUNT 295 x10^3/uL (140-400); RED BLOOD COUNT 4.52 x10^6/uL (3.50-5.40); RED CELL DISTRIBUTION WIDTH 15.4 % (11.5-14.5); WHITE BLOOD COUNT 10.8 x10^3/uL (4.0-11.0)
[2016-07-23] MEDS ORDERED: ONDANSETRON PF 4 MG/2 ML VIAL. IV ONE (21:30)
[2016-07-23] MEDS ORDERED: MORPHINE SULFATE 4 MG/ML DISP.SYRIN. IV ONE ×2 (21:30→21:45)
[2016-07-23 21:31] LABS: BILIRUBIN,URINE NEGATIVE (NEG); GLUCOSE,URINE NEGATIVE (NEG); NITRITE,URINE NEGATIVE (NEG); PH,URINE 5.5; PROTEIN,URINE 30 mg/dL (NEG-TRACE); UROBILINOGEN,URINE 0.2 mg/dL (0.2 mg/dL)
[2016-07-23 21:37] LABS: BACTERIA,URINE FEW /HPF (0-FEW); RBC,URINE >40 /HPF (0-2); SQUAMOUS EPITHELIAL CELL,UR MOD /LPF
[2016-07-23 21:48] LABS: CALCIUM 8.8 mg/dL (8.5-10.1); CREATININE 0.9 mg/dL (0.6-1.0); GFR 75.7; POTASSIUM 3.6 mmol/L (3.5-5.1)
[2016-07-23 21:52] LABS: ALBUMIN 3.4 g/dL (3.4-5.0); ALBUMIN/GLOBULIN RATIO 0.9 (1.0-1.7); TOTAL BILIRUBIN 0.2 mg/dL (0.2-1.0); TOTAL PROTEIN 7.4 g/dL (6.4-8.2)
[2016-07-23] MEDS ORDERED: IOHEXOL 300 MG/ML 75 ML VIAL IV ONE (22:15)
[2016-07-23] MEDS ORDERED: CONTRAST GIVEN MC PRN (22:15)
--- NOTE | 2016-07-23 22:46 | RAD ---
PROCEDURE Pelvic ultrasound HISTORY Pelvic pain possible ovarian torsion TECHNIQUE Transabdominal and transvaginal transducers were utilized COMPARISON Pelvic ultrasound November 24, 2014 FINDINGS Transabdominal imaging demonstrates no visualization of the uterus or ovaries due to body habitus. Transvaginal imaging demonstrates an anteverted uterus measuring 5.1 x 2.8 x 3.6 centimeters. Some shadowing obscures complete visualization of the uterus and fundus. No uterine mass documented. Endometrium thickness 3 millimeters. Partial visualization of the right ovary measures 1.4 x 2.4 x 1.8 centimeters with intact ovarian blood flow. Left ovary cannot be visualized. No pelvic fluid. IMPRESSION Normal pelvic ultrasound. The left ovary could not be visualized. See discussion above. Electronically signed by: Víctor Javier MD (July 23, 2016 22:45:12)
[2016-07-23] MEDS ORDERED: LORazepam 1 MG TABLET PO ONE (23:15)
[2016-07-23] MEDS ORDERED: HYDROmorphone 2 MG/ML VIAL IV ONE (23:15)
[2016-07-23 23:33] VITALS: BP 148/99
--- NOTE | 2016-07-23 23:36 | RAD ---
PROCEDURE CT abdomen and pelvis with contrast HISTORY Right lower quadrant abdominal pain TECHNIQUE Exposure: One or more of the following individualized dose reduction techniques were utilized for this exam: 1. Automated exposure control. 2. Adjustment of the mA and/or kV according to patient size. 3. Use of iterative reconstruction technique. Helical CT imaging abdomen and pelvis with 75 milliliters Omnipaque [address] abdomen and pelvis June 27, 2016 FINDINGS Abdomen: Cholecystectomy. Mild fatty change of the head of the pancreas. Size of the liver is prominent likely represents mild hepatomegaly. Spleen size normal. Kidneys, adrenals unremarkable. Very mild sigmoid colon diverticulosis. No obstruction or inflammation of the GI tract. The appendix is negative. No abdominal fluid or adenopathy. Lung bases and bones are unremarkable. Pelvis bladder, uterus, ovaries, rectum and bones are unremarkable. No fluid or adenopathy. IMPRESSION No acute process. The appendix is negative. There is probable hepatomegaly similar to the prior exam. Electronically signed by: Víctor Javier MD (July 23, 2016 23:35:12)
--- NOTE | 2016-07-23 23:39 | ED.ADGEN ---
Past Medical History Past Medical History: Endometriosis, Kidney Stone Additional Past Medical Histor: PCOS,morbid obesity, endometriosis Past Surgical History: Tubal ligation Alcohol Use: None Drug Use: None Adult General Chief Complaint Chief Complaint: ABDOMINAL PAIN HPI HPI Patient is a 26 year old female with history of chronic pelvic pain secondary to endometriosis and PCOS resents with increased pelvic pain for the past 3 days. Pain is general, diffuse lower pelvic, and rated moderate to severe. Described as dull and aching. Patient denies flank pain, urinary frequency urgency and hematuria. Patient recently discontinued control 3 days ago per her ACADEMIC ADVISEMENT DIRECTOR 's with treatment. Patient states she has had similar pain due to endometriosis, sometimes more severe. Patient has been taken ibuprofen at home with limited relief. Patient is currently on her menstrual period. Review of Systems Review of Systems Review symptoms as per history of present illness. All other review symptoms are negative. Current Medications Current Medications Current Medications Medications (Trade) Dose Ordered Sig/Sharri Start Time Stop Time Status Last Admin Dose Admin Hydromorphone HCl (Dilaudid) 1 mg 1X ONCE 07/23/16 23:15 07/23/16 23:16 DC 07/23/16 23:21 1 MG Info (Do NOT chart on this entry -- for MONITORING) 1 each PRN DAILY PRN 07/23/16 22:15 07/25/16 22:14 Iohexol (Omnipaque 300 Mg/ml) 75 ml 1X ONCE 07/23/16 22:15 07/23/16 22:16 DC 07/23/16 22:15 75 ML Lorazepam (Ativan) 1 mg 1X ONCE 07/23/16 23:15 07/23/16 23:16 DC 07/23/16 23:20 1 MG Morphine Sulfate 4 mg 1X ONCE 07/23/16 21:45 07/23/16 21:47 DC 07/23/16 22:10 4 MG Ondansetron HCl (Zofran) 4 mg 1X ONCE 07/23/16 21:30 07/23/16 21:31 DC 07/23/16 21:38 4 MG Allergies Allergies Allergies Coded Allergies Type Severity Reaction Last Updated Verified codeine Allergy Intermediate 11/11/15 Yes duloxetine Allergy Intermediate hives 05/12/15 Yes fentanyl Allergy Intermediate hives 05/12/15 Yes ketorolac Allergy Intermediate hives 05/12/15 Yes paroxetine Allergy Intermediate hives 05/12/15 Yes promethazine Allergy Intermediate hives 05/12/15 Yes tramadol Allergy Intermediate hives, Tolerates Morphine 05/12/15 Yes prochlorperazine Adverse Reaction Intermediate Anxiety 11/25/14 Yes Physical Exam Physical Exam Constitutional: Moderate distress secondary to pain, anxious. HENT: Normocephalic, atraumatic, bilateral external ears normal, oropharynx moist, no oral exudates, nose normal. [] Eyes: PERRLA, EOMI, conjunctiva normal, no discharge. [] Neck: Normal range of motion, no tenderness, supple, no stridor. [] Cardiovascular:Heart rate regular rhythm, no murmur [] Lungs & Thorax: Bilateral breath sounds clear to auscultation [] Abdomen: Soft, obesity compromising exam, diffuse lower abdominal pain. Skin: Warm, dry, no erythema, no rash. [] Back: No tenderness, no CVA tenderness. [] Extremities: No tenderness, no cyanosis, no clubbing, ROM intact, no edema. [] Neurologic: Alert and oriented X 3, normal motor function, normal sensory function, no focal deficits noted. [] Psychologic: Affect normal, judgement normal, mood normal. [] Current Patient Data Vital Signs Vital Signs Date Time Temp Pulse Resp B/P (MAP) Pulse Ox O2 Delivery O2 Flow Rate FiO2 07/23/16 23:21 20 Room Air 07/23/16 22:10 94 07/23/16 20:37 99.2 122 186/103 (130) 99.2 Lab Values Laboratory Tests Test 07/23/16 20:19 07/23/16 20:48 07/23/16 20:50 POC Urine HCG, Qualitative Hcg negative (Negative) White Blood Count 10.8 x10^3/uL (4.0-11.0) Red Blood Count 4.52 x10^6/uL (3.50-5.40) Hemoglobin 13.6 g/dL (12.0-15.5) Hematocrit 38.5 % (36.0-47.0) Mean Corpuscular Volume 85 fL (79-100) Mean Corpuscular Hemoglobin 30 pg (25-35) Mean Corpuscular Hemoglobin Concent 35 g/dL (31-37) Red Cell Distribution Width 15.4 % (11.5-14.5) H Platelet Count 295 x10^3/uL (140-400) Neutrophils (%) (Auto) 71 % (31-73) Lymphocytes (%) (Auto) 21 % (24-48) L Monocytes (%) (Auto) 4 % (0-9) Eosinophils (%) (Auto) 3 % (0-3) Basophils (%) (Auto) 1 % (0-3) Neutrophils # (Auto) 7.6 x10^3uL (1.8-7.7) Lymphocytes # (Auto) 2.3 x10^3/uL (1.0-4.8) Monocytes # (Auto) 0.5 x10^3/uL (0.0-1.1) Eosinophils # (Auto) 0.3 x10^3/uL (0.0-0.7) Basophils # (Auto) 0.1 x10^3/uL (0.0-0.2) Sodium Level 142 mmol/L (136-145) Potassium Level 3.6 mmol/L (3.5-5.1) Chloride Level 102 mmol/L (98-107) Carbon Dioxide Level 30 mmol/L (21-32) Anion Gap 10 (6-14) Blood Urea Nitrogen 11 mg/dL (7-20) Creatinine 0.9 mg/dL (0.6-1.0) Estimated GFR (Cockcroft-Gault) 75.7 BUN/Creatinine Ratio 12 (6-20) Glucose Level 120 mg/dL (70-99) H Calcium Level 8.8 mg/dL (8.5-10.1) Total Bilirubin 0.2 mg/dL (0.2-1.0) Aspartate Amino Transferase (AST) 40 U/L (15-37) H Alanine Aminotransferase (ALT) 46 U/L (14-59) Alkaline Phosphatase 83 U/L (46-116) C-Reactive Protein, Quantitative 17.0 mg/L (0-3.3) H Total Protein 7.4 g/dL (6.4-8.2) Albumin 3.4 g/dL (3.4-5.0) Albumin/Globulin Ratio 0.9 (1.0-1.7) L Urine Collection Type Unknown Urine Color Treva Urine Clarity Clear Urine pH 5.5 Urine Specific [place] 1.025 Urine Protein 30 mg/dL (NEG-TRACE) Urine Glucose (UA) Negative mg/dL (NEG) Urine Ketones (Stick) Negative mg/dL (NEG) Urine Blood Large (NEG) Urine Nitrite Negative (NEG) Urine Bilirubin Negative (NEG) Urine Urobilinogen Dipstick 0.2 mg/dL (0.2 mg/dL) Urine Leukocyte Esterase Negative (NEG) Urine RBC >40 /HPF (0-2) Urine WBC 1-4 /HPF (0-4) Urine Squamous Epithelial Cells Mod /LPF Urine Bacteria Few /HPF (0-FEW) Urine Mucus Mod /LPF Laboratory Tests 07/23/16 20:48 Laboratory Tests 07/23/16 20:48 EKG EKG [] Radiology/Procedures Radiology/Procedures [Abdominal/lpelvic ultrasound: Limited views per patient's body habitus. No evidence of torsion or large cyst on right ovary. Left ovary not visualized.] CT abdomen and pelvis: Pending Impressions: Acute exacerbation of chronic pelvic pain without identified cause Course & Med Decision Making Course & Med Decision Making Pertinent Labs and Imaging studies reviewed. (See chart for details) [Patient's pain addressed while in the emergency department. Ultrasound does not show evidence of right ovarian torsion. Left ovary is not identified, although there is no large during cyst present suggestive of torsion. CT abdomen pelvis, nondiagnostic. Patient received adequate relief while in the emergency department with pain treatment and is agreeable to follow-up with her ACADEMIC ADVISEMENT DIRECTOR for further management. Return precautions reviewed.] Dragon Disclaimer Dragon Disclaimer This electronic medical record was generated, in whole or in part, using a voice recognition dictation system. REN SAWANT DO July 23, 2016 23:39
== END 2016-07-24 00:12 | disposition home or self-care (01) ==
LOC: ER 20:37
DX: G89.29 Other chronic pain (principal); R10.2 Pelvic and perineal pain; R10.30 Lower abdominal pain, unspecified; E28.2 Polycystic ovarian syndrome; E66.01 Morbid (severe) obesity due to excess calories; Z68.44 Body mass index [BMI] 60.0-69.9, adult; Z87.442 Personal history of urinary calculi; Z88.6 Allergy status to analgesic agent; Z88.4 Allergy status to anesthetic agent; Z88.5 Allergy status to narcotic agent; Z88.8 Allergy status to other drugs, medicaments and biological substances; Z98.51 Tubal ligation status
CPT/HCPCS: 36415; 74177; 76830; 76856; 80053; 81001; 81025; 85027; 86140; 96374; 96375; 99285; J1170; J2270; J2405; Q9967

== ENCOUNTER 2016-08-08 12:58 | Emergency (ER) | payer SELFPAY ==
[~2016-08-08] VITALS: Ht 162.6 cm; Wt 176.9 kg
[2016-08-08 13:33] LABS: BILIRUBIN,URINE NEGATIVE (NEG); GLUCOSE,URINE NEGATIVE (NEG); NITRITE,URINE NEGATIVE (NEG); PROTEIN,URINE 100 mg/dL (NEG-TRACE); UROBILINOGEN,URINE 0.2 mg/dL (0.2 mg/dL)
[2016-08-08] MEDS ORDERED: IV RINGERS,LACTATED 1000ML 1,000 ML IV SCH (13:44)
[2016-08-08] MEDS ORDERED: ONDANSETRON PF 4 MG/2 ML VIAL. IV ONE (13:45)
[2016-08-08 13:49] LABS: BACTERIA,URINE MODERATE /HPF (0-FEW); RBC,URINE >40 /HPF (0-2); SQUAMOUS EPITHELIAL CELL,UR MANY /LPF
[2016-08-08 14:20] LABS: BASO # 0.1 x10^3/uL (0.0-0.2); BASO % 1 % (0-3); EOS % 2 % (0-3); HEMATOCRIT 40.1 % (36.0-47.0); HEMOGLOBIN 13.6 g/dL (12.0-15.5); LYMPH # 1.2 x10^3/uL (1.0-4.8); LYMPH % 13 % (24-48); MEAN CORPUSCULAR HEMOGLOBIN 29 pg (25-35); MEAN CORPUSCULAR HGB CONC 34 g/dL (31-37); MEAN CORPUSCULAR VOLUME 85 fL (79-100); MONO % 3 % (0-9); NEUT % 82 % (31-73); PLATELET COUNT 299 x10^3/uL (140-400); RED BLOOD COUNT 4.75 x10^6/uL (3.50-5.40); WHITE BLOOD COUNT 9.7 x10^3/uL (4.0-11.0)
[2016-08-08] MEDS ORDERED: HYDROmorphone 2 MG/ML VIAL ONE (14:20)
[2016-08-08] MEDS ORDERED: diphenhydrAMINE 50 MG/ML VIAL ONE (14:20)
[2016-08-08] MEDS: HYDROmorphone 2 MG/ML VIAL IV/SQ PRN ×4 (14:22→16:45)
--- NOTE | 2016-08-08 14:24 | RAD ---
Indication right flank pain. Grayscale images targeted to the right kidney were obtained. Note is made of a CT examination of the abdomen and pelvis 07/23/2016. Imaging is limited secondary to patient body habitus. The right kidney measures 13 x 5.5 x 5.2 cm. No hydronephrosis or mass is seen. The partially distended urinary bladder appeared grossly normal. IMPRESSION: Slightly limited study. No abnormality seen associated with the right kidney
[2016-08-08 14:30] LABS: CALCIUM 9.1 mg/dL (8.5-10.1); CREATININE 0.7 mg/dL (0.6-1.0); GFR 101.1; POTASSIUM 3.8 mmol/L (3.5-5.1)
[2016-08-08] MEDS ORDERED: diphenhydrAMINE 50 MG/ML VIAL IVP ONE (14:30)
[2016-08-08 14:36] LABS: ALBUMIN 3.5 g/dL (3.4-5.0); ALBUMIN/GLOBULIN RATIO 0.8 (1.0-1.7); TOTAL BILIRUBIN 0.5 mg/dL (0.2-1.0); TOTAL PROTEIN 7.7 g/dL (6.4-8.2)
[2016-08-08] MEDS ORDERED: IV NORMAL SALINE 1000ML BAG 1,000 ML IV ONE (14:45)
--- NOTE | 2016-08-08 14:57 | RAD ---
KUB, 08/08/2016: History: Right-sided abdominal and flank pain, hematuria, previous kidney stones The abdominal gas pattern is unremarkable without evidence of obstruction. Surgical clips in the right upper quadrant suggest a previous cholecystectomy. There is no evidence of organomegaly. No abnormal abdominal calcifications are seen. Note is made that the CT study of 06/27/2016 did not delineate renal calculi. IMPRESSION: No acute abnormality is detected.
[2016-08-08] MEDS ORDERED: oxyCODONE/APAP 7.5/325 1 TAB TABLET PO ONE (15:00)
[2016-08-08] MEDS ORDERED: TAMSULOSIN 0.4 MG CAP.ER.24H. PO ONE (15:00)
[2016-08-08] MEDS ORDERED: CEPHALEXIN 250 MG CAPSULE. PO ONE (15:00)
[2016-08-08 15:22] VITALS: BP 144/96
--- NOTE | 2016-08-08 16:13 | ED.ADGEN ---
Past Medical History Past Medical History: Depression, Endometriosis, Kidney Infection, Kidney Stone , Ovarian Cyst, Other Additional Past Medical Histor: PCOS,morbid obesity, endometriosis Past Surgical History: Cholecystectomy Alcohol Use: Rarely Drug Use: None Adult General Chief Complaint Chief Complaint: ABDOMINAL PAIN HPI HPI Patient is a 26 year old woman, history of morbid obesity, PCOS, ovarian cysts , endometriosis, recurrent abdominal pain, renal calculi, recurrent urinary tract infection, who presents to the emergency department with complaint of right flank and right abdominal pain, over the past 2 days, with development of hematuria today. She denies any burning with urination, complains of mild nausea but no vomiting, denies any injuries, any weakness, numbness, tingling, chest pain, shortness of breath, diarrhea. States these symptoms may feel like previous episode of renal calculi, but "it's hard to tell". She states she has not taken any medication at home for pain prior to coming to the ED. Review of Systems Review of Systems Constitutional: Denies fever or chills. [] Eyes: Denies change in visual acuity. [] HENT: Denies nasal congestion or sore throat. [] Respiratory: Denies cough or shortness of breath. [] Cardiovascular: Denies chest pain or edema. [] GI: Denies abdominal pain, nausea, vomiting, bloody stools or diarrhea. [] : Denies dysuria. [] Musculoskeletal: Denies back pain or joint pain. [] Integument: Denies rash. [] Neurologic: Denies headache, focal weakness or sensory changes. [] Endocrine: Denies polyuria or polydipsia. [] Lymphatic: Denies swollen glands. [] Psychiatric: Denies depression or anxiety. [] Current Medications Current Medications Current Medications Medications (Trade) Dose Ordered Sig/Sharri Start Time Stop Time Status Last Admin Dose Admin Cephalexin HCl (Keflex) 500 mg 1X ONCE 08/08/16 15:00 08/08/16 15:01 DC 08/08/16 14:54 500 MG Diphenhydramine HCl (Benadryl) 50 mg STK-MED ONCE 08/08/16 14:20 08/08/16 14:21 DC Hydromorphone HCl (Dilaudid) 2 mg STK-MED ONCE 08/08/16 14:20 08/08/16 14:21 DC Ondansetron HCl (Zofran) 4 mg 1X ONCE 08/08/16 13:45 08/08/16 13:53 DC 08/08/16 14:22 4 MG Oxycodone/ Acetaminophen (Percocet 7.5/ 325) 1 tab 1X ONCE 08/08/16 15:00 08/08/16 15:01 DC 08/08/16 14:55 1 TAB Ringer's Solution 1,000 ml @ 1,000 mls/hr Q1H 08/08/16 13:44 08/08/16 14:43 DC Sodium Chloride 1,000 ml @ 1,000 mls/hr 1X ONCE 08/08/16 14:45 08/08/16 15:44 08/08/16 14:44 1,000 MLS/HR Tamsulosin HCl (Flomax) 0.4 mg 1X ONCE 08/08/16 15:00 08/08/16 15:01 DC 08/08/16 14:55 0.4 MG Allergies Allergies Allergies Coded Allergies Type Severity Reaction Last Updated Verified codeine Allergy Intermediate 11/11/15 Yes duloxetine Allergy Intermediate hives 05/12/15 Yes fentanyl Allergy Intermediate hives 05/12/15 Yes ketorolac Allergy Intermediate hives 05/12/15 Yes paroxetine Allergy Intermediate hives 05/12/15 Yes promethazine Allergy Intermediate hives 05/12/15 Yes tramadol Allergy Intermediate hives, Tolerates Morphine 05/12/15 Yes prochlorperazine Adverse Reaction Intermediate Anxiety 11/25/14 Yes Physical Exam Physical Exam Constitutional: Well developed, morbidly obese, moderate distress secondary to pain, non-toxic appearance. [] HENT: Normocephalic, atraumatic, bilateral external ears normal, oropharynx moist, no oral exudates, nose normal. [] Eyes: PERRLA, EOMI, conjunctiva normal, no discharge. [] Neck: Normal range of motion, no tenderness, supple, no stridor. [] Cardiovascular:Heart rate regular rhythm, no murmur, S1, S2, no rubs or gallops , tachycardic. [] Lungs & Thorax: Bilateral breath sounds clear to auscultation [] Abdomen: Bowel sounds normal, obese, soft, tenderness palpation in the right flank, radiating around to the right lower quadrant and the suprapubic region, no rebound, rigidity, no guarding, no masses, no pulsatile masses. [] Skin: Warm, dry, no erythema, no rash. [] Back: No tenderness, no CVA tenderness. [] Extremities: No tenderness, no cyanosis, no clubbing, ROM intact, no edema. Negative Homans sign. [] Neurologic: Alert and oriented X 3, normal motor function, normal sensory function, no focal deficits noted. [] Psychologic: Affect normal, judgement normal, mood normal. [] Current Patient Data Vital Signs Vital Signs Date Time Temp Pulse Resp B/P (MAP) Pulse Ox O2 Delivery O2 Flow Rate FiO2 08/08/16 15:29 22 Room Air 08/08/16 13:15 98.7 122 157/70 (99) 97 98.7 Lab Values Laboratory Tests Test 08/08/16 12:23 08/08/16 13:05 08/08/16 14:10 POC Urine HCG, Qualitative Hcg negative (Negative) Urine Collection Type Unknown Urine Color Treva Urine Clarity Cloudy Urine pH 7.0 Urine Specific [place] 1.015 Urine Protein 100 mg/dL (NEG-TRACE) Urine Glucose (UA) Negative mg/dL (NEG) Urine Ketones (Stick) Negative mg/dL (NEG) Urine Blood Large (NEG) Urine Nitrite Negative (NEG) Urine Bilirubin Negative (NEG) Urine Urobilinogen Dipstick 0.2 mg/dL (0.2 mg/dL) Urine Leukocyte Esterase Trace (NEG) Urine RBC >40 /HPF (0-2) Urine WBC 1-4 /HPF (0-4) Urine Squamous Epithelial Cells Many /LPF Urine Bacteria Moderate /HPF (0-FEW) Urine Mucus Mod /LPF White Blood Count 9.7 x10^3/uL (4.0-11.0) Red Blood Count 4.75 x10^6/uL (3.50-5.40) Hemoglobin 13.6 g/dL (12.0-15.5) Hematocrit 40.1 % (36.0-47.0) Mean Corpuscular Volume 85 fL (79-100) Mean Corpuscular Hemoglobin 29 pg (25-35) Mean Corpuscular Hemoglobin Concent 34 g/dL (31-37) Red Cell Distribution Width 15.0 % (11.5-14.5) H Platelet Count 299 x10^3/uL (140-400) Neutrophils (%) (Auto) 82 % (31-73) H Lymphocytes (%) (Auto) 13 % (24-48) L Monocytes (%) (Auto) 3 % (0-9) Eosinophils (%) (Auto) 2 % (0-3) Basophils (%) (Auto) 1 % (0-3) Neutrophils # (Auto) 7.9 x10^3uL (1.8-7.7) H Lymphocytes # (Auto) 1.2 x10^3/uL (1.0-4.8) Monocytes # (Auto) 0.3 x10^3/uL (0.0-1.1) Eosinophils # (Auto) 0.2 x10^3/uL (0.0-0.7) Basophils # (Auto) 0.1 x10^3/uL (0.0-0.2) Sodium Level 141 mmol/L (136-145) Potassium Level 3.8 mmol/L (3.5-5.1) Chloride Level 102 mmol/L (98-107) Carbon Dioxide Level 30 mmol/L (21-32) Anion Gap 9 (6-14) Blood Urea Nitrogen 8 mg/dL (7-20) Creatinine 0.7 mg/dL (0.6-1.0) Estimated GFR (Cockcroft-Gault) 101.1 BUN/Creatinine Ratio 11 (6-20) Glucose Level 113 mg/dL (70-99) H Calcium Level 9.1 mg/dL (8.5-10.1) Total Bilirubin 0.5 mg/dL (0.2-1.0) Aspartate Amino Transferase (AST) 27 U/L (15-37) Alanine Aminotransferase (ALT) 38 U/L (14-59) Alkaline Phosphatase 81 U/L (46-116) Total Protein 7.7 g/dL (6.4-8.2) Albumin 3.5 g/dL (3.4-5.0) Albumin/Globulin Ratio 0.8 (1.0-1.7) L Laboratory Tests 08/08/16 14:10 Laboratory Tests 08/08/16 14:10 EKG EKG ECG: Rhythm strip: Sinus tachycardia, heart rate 122 bpm, sinus rhythm, no ectopy. As interpreted by me. [] Radiology/Procedures Radiology/Procedures [][facility] [id number] [place] [address] IMAGING REPORT Signed PATIENT: DONNA LUI ACCOUNT: [id number] : 1990 LOCATION: ER AGE: 26 SEX: F EXAM STATUS: REG ER ORD. PHYSICIAN: DANTE HERNADEZ DO REASON: R flank/abd pain w/ hematuria/hx renal colic PROCEDURE: RENAL COMPLETE RIGHT Indication right flank pain. Grayscale images targeted to the right kidney were obtained. Note is made of a CT examination of the abdomen and pelvis 07/23/2016. Imaging is limited secondary to patient body habitus. The right kidney measures 13 x 5.5 x 5.2 cm. No hydronephrosis or mass is seen. The partially distended urinary bladder appeared grossly normal. IMPRESSION: Slightly limited study. No abnormality seen associated with the right kidney DICTATED and SIGNED BY: RENA BERMAN MD DATE: 08/08/16 1420 CC: DANTE HERNADEZ DO; NO PCP ~ Impressions: [facility] [address] [id number] [place] [address] IMAGING REPORT Signed PATIENT: DONNA LUI ACCOUNT: [id number] : 1990 LOCATION: ER AGE: 26 SEX: F EXAM STATUS: REG ER ORD. PHYSICIAN: DANTE HERNADEZ DO REASON: R flank/abd pain w/ hematuria PROCEDURE: KUB KUB, 08/08/2016: History: Right-sided abdominal and flank pain, hematuria, previous kidney stones The abdominal gas pattern is unremarkable without evidence of obstruction. Surgical clips in the right upper quadrant suggest a previous cholecystectomy. There is no evidence of organomegaly. No abnormal abdominal calcifications are seen. Note is made that the CT study of 06/27/2016 did not delineate renal calculi. IMPRESSION: No acute abnormality is detected. DICTATED and SIGNED BY: JEAN GIRALDO MD DATE: 08/08/16 9596 CC: DANTE HERNADEZ DO; NO PCP ~ Course & Med Decision Making Course & Med Decision Making Pertinent Labs and Imaging studies reviewed. (See chart for details) Patient received ultrasound of the right kidney, and x-ray which did not reveal any evidence of obstructing stone, there is no hydronephrosis on ultrasound, urinalysis revealed 20-40 RBCs, and a 40 RBCs, few bacteria. I did discuss these findings with patient, no electrolyte abnormalities or other concerning findings identified. There is a possibility the patient may have a small nonobstructing stone, with evidence of bacteriuria. Patient received oral medications in the ED without issue, along with oral fluids. On reevaluation, patient's heart rate is now in the 80s and 90s, she is taking by mouth medications without issue. I did discuss the KUB and ultrasound findings, there is no evidence of concerning findings on the studies, and as she is feeling better and tolerating oral medications, the plan will be for her to continue antibiotics, symptomatic management, push oral fluids, and to follow-up with Dr. Otero of urology. Patient ambulating without difficulty in the ED, is agreeable with this plan, given clear and detailed return instructions and precautions, also medication instructions and precautions, patient discharged home in stable condition with prescriptions and plan as stated. Dragon Disclaimer Dragon Disclaimer This electronic medical record was generated, in whole or in part, using a voice recognition dictation system. Departure Impression: Primary Impression: Flank pain Disposition: 01 HOME, SELF-CARE Condition: STABLE DANTE HERNADEZ DO August 08, 2016 16:13
[2016-08-08] MEDS ORDERED: OXYC-323 PO (16:30)
[2016-08-08] MEDS ORDERED: CEPH-264 PO (16:30)
[2016-08-08] MEDS ORDERED: TAMS0.4C97 PO (16:30)
== END 2016-08-08 16:52 | disposition home or self-care (01) ==
LOC: ER 12:58
DX: R10.31 Right lower quadrant pain (principal); R11.0 Nausea; R30.0 Dysuria; E28.2 Polycystic ovarian syndrome; Z87.442 Personal history of urinary calculi; E66.01 Morbid (severe) obesity due to excess calories; Z68.44 Body mass index [BMI] 60.0-69.9, adult; Z88.8 Allergy status to other drugs, medicaments and biological substances; Z91.041 Radiographic dye allergy status; Z90.49 Acquired absence of other specified parts of digestive tract
CPT/HCPCS: 36415; 74000; 76775; 80053; 81001; 84703; 85027; 87086; 96361; 96374; 96375; 96376; 99285; J1170; J1200; J2405; J7030; 81025

== ENCOUNTER 2016-08-09 22:45 | Emergency (ER) | payer SELFPAY ==
[~2016-08-09] VITALS: Ht 162.6 cm; Wt 188.7 kg
[~2016-08-09 22:45] MED LIST changes: +CEPH-264 PO; +TAMS0.4C97 PO
--- NOTE | 2016-08-09 23:07 | PHYS DOC ---
Past Medical History Past Medical History: Depression, Endometriosis, Kidney Infection, Kidney Stone , Ovarian Cyst, Other Additional Past Medical Histor: PCOS,morbid obesity, endometriosis Past Surgical History: Cholecystectomy Alcohol Use: Rarely Drug Use: None Adult General Chief Complaint Chief Complaint: FLANK PAIN HPI HPI Patient is a 26 year old female who presents with 2 day history of intermittent right flank pain radiating into the groin with some nausea and vomiting 2, no diarrhea, no fever. Pain is severe sharp and radiates to the groin consistent with previous 2 or 3 kidney stones that have all passed spontaneously in the past. She does not have a local urologist and was seen in the ER yesterday had hematuria and ultrasound which showed findings consistent with possible renal stone. She had a mild UTI that was treated with antibiotics , prescribed pain medicines and nausea meds and Flomax. Pain has returned and is more severe. Review of Systems Review of Systems Constitutional: Denies fever or chills [] Eyes: Denies change in visual acuity, redness, or eye pain [] HENT: Denies nasal congestion or sore throat [] Respiratory: Denies cough or shortness of breath [] Cardiovascular: No additional information not addressed in HPI [] GI: Denies abdominal pain, nausea, vomiting, bloody stools or diarrhea [] : Denies dysuria or hematuria [] Musculoskeletal: Denies back pain or joint pain [] Integument: Denies rash or skin lesions [] Neurologic: Denies headache, focal weakness or sensory changes [] Endocrine: Denies polyuria or polydipsia [] Current Medications Current Medications Current Medications Medications (Trade) Dose Ordered Sig/Sharri Start Time Stop Time Status Last Admin Dose Admin Hydromorphone HCl (Dilaudid) 0.5 mg 1X ONCE 08/10/16 00:00 08/10/16 00:01 DC 08/09/16 23:55 0.5 MG Ondansetron HCl (Zofran) 4 mg 1X ONCE 08/09/16 23:30 08/09/16 23:31 DC 08/09/16 23:12 4 MG Sodium Chloride 1,000 ml @ 1,000 mls/hr 1X ONCE 08/09/16 23:30 08/10/16 00:29 08/09/16 23:12 1,000 MLS/HR Allergies Allergies Allergies Coded Allergies Type Severity Reaction Last Updated Verified codeine Allergy Intermediate 11/11/15 Yes duloxetine Allergy Intermediate hives 05/12/15 Yes fentanyl Allergy Intermediate hives 05/12/15 Yes ketorolac Allergy Intermediate hives 05/12/15 Yes paroxetine Allergy Intermediate hives 05/12/15 Yes promethazine Allergy Intermediate hives 05/12/15 Yes tramadol Allergy Intermediate hives, Tolerates Morphine 05/12/15 Yes prochlorperazine Adverse Reaction Intermediate Anxiety 11/25/14 Yes Physical Exam Physical Exam Constitutional: Well developed, well nourished, moderate distress, non-toxic appearance. [] HENT: Normocephalic, atraumatic, bilateral external ears normal, oropharynx moist, no oral exudates, nose normal. [] Eyes: PERRLA, EOMI, conjunctiva normal, no discharge. [] Neck: Normal range of motion, no tenderness, supple, no stridor. [] Cardiovascular:Heart rate regular rhythm, no murmur [] Lungs & Thorax: Bilateral breath sounds clear to auscultation [] Abdomen: Bowel sounds normal, soft, no tenderness, no masses, no pulsatile masses. Points to the location of pain is the right lower flank [] Skin: Warm, dry, no erythema, no rash. [] Back: No tenderness, no CVA tenderness. [] Extremities: No tenderness, no cyanosis, no clubbing, ROM intact, no edema. [] Neurologic: Alert and oriented X 3, normal motor function, normal sensory function, no focal deficits noted. [] Psychologic: Affect normal, judgement normal, mood normal. [] Current Patient Data Vital Signs Vital Signs Date Time Temp Pulse Resp B/P (MAP) Pulse Ox O2 Delivery O2 Flow Rate FiO2 08/09/16 22:45 98.2 89 24 162/105 (124) 96 Room Air 98.2 Lab Values Laboratory Tests Test 08/09/16 22:05 08/09/16 23:00 08/09/16 23:25 POC Urine HCG, Qualitative Hcg negative (Negative) Urine Collection Type Unknown Urine Color Yellow Urine Clarity Cloudy Urine pH 7.0 Urine Specific [place] 1.020 Urine Protein Negative mg/dL (NEG-TRACE) Urine Glucose (UA) Negative mg/dL (NEG) Urine Ketones (Stick) Negative mg/dL (NEG) Urine Blood Large (NEG) Urine Nitrite Negative (NEG) Urine Bilirubin Negative (NEG) Urine Urobilinogen Dipstick 1.0 mg/dL (0.2 mg/dL) Urine Leukocyte Esterase Moderate (NEG) Urine RBC Tntc /HPF (0-2) Urine WBC 1-4 /HPF (0-4) Urine Squamous Epithelial Cells Many /LPF Urine Bacteria Few /HPF (0-FEW) Urine Mucus Slight /LPF Urine Yeast Present /HPF POC Hemoglobin 13.9 g/dL (12-15) POC Hematocrit 41 % (36-40) H POC Sodium 140 mmol/L (135-145) POC Potassium 3.7 mmol/L (3.5-5.0) POC Chloride 102 mmol/L (98-110) POC Total CO2 29 mmol/L (23-32) Anion Gap 14 mmol/L (6-14) POC Blood Urea Nitrogen 6 mg/dL (8-26) L POC Creatinine 0.7 mg/dL (0.5-1.4) Glucose Level 90 mg/dL (70-99) POC Ionized Calcium (Amadeo) 1.14 mmol/L (1.13-1.32) Laboratory Tests 08/09/16 23:25 EKG EKG [] Radiology/Procedures Radiology/Procedures CT scan abdomen and pelvis no evidence of ureteral stone or appendicitis per radiology report [] Course & Med Decision Making Course & Med Decision Making Pertinent Labs and Imaging studies reviewed. (See chart for details) Urinalysis showed some hematuria and review of the culture from yesterday was mixed cherry. Patient can continue her Keflex she does not appear to be toxic or septic. Patient has home pain meds she can continue. Advised to follow-up with a primary care physician. [] Dragon Disclaimer Dragon Disclaimer This electronic medical record was generated, in whole or in part, using a voice recognition dictation system. Departure Departure Disposition: HOME, SELF-CARE Condition: STABLE Referrals: NO PCP (PCP) HUNG MCKEON MD August 09, 2016 23:07
[2016-08-09] MEDS ORDERED: ONDANSETRON PF 4 MG/2 ML VIAL. IV ONE (23:30)
[2016-08-09] MEDS ORDERED: IV NORMAL SALINE 1000ML BAG 1,000 ML IV ONE (23:30)
[2016-08-09] MEDS ORDERED: HYDROmorphone 2 MG/ML VIAL IV ONE (23:30)
[2016-08-09 23:36] LABS: BILIRUBIN,URINE NEGATIVE (NEG); GLUCOSE,URINE NEGATIVE (NEG); NITRITE,URINE NEGATIVE (NEG); PROTEIN,URINE NEGATIVE (NEG-TRACE)
[2016-08-09 23:43] LABS: BACTERIA,URINE FEW /HPF (0-FEW); RBC,URINE TNTC /HPF (0-2)
[2016-08-09 23:44] LABS: SQUAMOUS EPITHELIAL CELL,UR MANY /LPF; YEAST,URINE PRESENT /HPF
[2016-08-09 23:46] LABS: POTASSIUM ISTAT 3.7 mmol/L (3.5-5.0)
--- NOTE | 2016-08-09 23:48 | RAD ---
CT abdomen and pelvis without contrast TECHNIQUE: Helical multiplanar reconstructed noncontrast imaging of the abdomen and pelvis was acquired. COMPARISON: CT abdomen and pelvis July 23, 2016 HISTORY: Right flank pain. History of kidney stones. Abdomen findings: Cholecystectomy. Prominent size of the liver similar to prior study. Spleen, pancreas, adrenals and kidneys are unremarkable. No nephroureterolithiasis or hydronephrosis. No abdominal fluid. GI tract demonstrates no obstruction or inflammation. Appendix is negative. No abdominal fluid. Lung bases and bones are unremarkable. Pelvis findings: No bladder calculi. Uterus, ovaries, rectum and bones are unremarkable. No pelvic fluid. IMPRESSION: No acute process. The appendix is negative. No nephroureterolithiasis or hydronephrosis. Exposure: One or more of the following individualized dose reduction techniques were utilized for this examination: 1. Automated exposure control 2. Adjustment of the mA and/or kV according to patient size 3. Use of iterative reconstruction technique Electronically signed by: Víctor Javier MD (08/09/2016 11:45 PM)
[2016-08-10] VITALS: BP 160/92
[2016-08-10] MEDS ORDERED: HYDROmorphone 2 MG/ML VIAL IV ONE
[2016-08-10] MEDS ORDERED: ONDA4TAB10 PO (12:38)
== END 2016-08-10 00:26 | disposition home or self-care (01) ==
LOC: ER 22:45
DX: R10.9 Unspecified abdominal pain (principal); R11.2 Nausea with vomiting, unspecified; R31.9 Hematuria, unspecified; F32.9 Major depressive disorder, single episode, unspecified; E66.01 Morbid (severe) obesity due to excess calories; Z68.45 Body mass index [BMI] 70 or greater, adult; Z90.49 Acquired absence of other specified parts of digestive tract; Z88.5 Allergy status to narcotic agent; Z88.6 Allergy status to analgesic agent; Z88.8 Allergy status to other drugs, medicaments and biological substances
CPT/HCPCS: 74176; 80047; 81001; 84703; 87086; 96361; 96374; 96375; 96376; 99285; J1170; J2405; J7030; 81025

== ENCOUNTER 2016-08-10 11:35 | Emergency (ER) | payer SELFPAY ==
--- NOTE | 2016-08-10 11:42 | PHYS DOC ---
Past Medical History Past Medical History: Depression, Endometriosis, Kidney Infection, Kidney Stone , Ovarian Cyst, Other Additional Past Medical Histor: PCOS,morbid obesity, endometriosis Past Surgical History: Cholecystectomy Alcohol Use: Rarely Drug Use: None Adult General HPI HPI Patient is a 26 year old female brought in by EMS for evaluation of abdominal pain. Patient has been seen 2 days ago and yesterday for abdominal pain and received a renal ultrasound 2 days ago and then a CT yesterday and her workups have been completely normal. She says that today the pain is in her right lower quadrant and that it feels more consistent with her endometriosis type pain. She says that she has been having nausea and vomiting with the pain but no fevers chills. Patient has long-standing history of abdominal pain and says that they're considering laparotomy however she has had multiple the past and her POLYSOMNOGRAPHER does not want to do it. She says that she is going to follow with another POLYSOMNOGRAPHER on Friday. Patient has quite impressive K tracks report as it shows that she has had 16 prescriptions filled that 9 different pharmacies in the past 3 months and she has had 8 prescriptions for opioids alone in this month. She is getting prescriptions from multiple hospitals including here [facility] and other facilities I don't recognize. Patient is in no obvious distress with normal vital signs. Review of Systems Review of Systems Constitutional: Denies fever or chills [] Cardiovascular: No additional information not addressed in HPI [] GI: + abdominal pain, nausea, vomiting. No bloody stools or diarrhea [] : Denies dysuria or hematuria [] Musculoskeletal: Denies back pain or joint pain [] Current Medications Current Medications Current Medications Medications (Trade) Dose Ordered Sig/Sharri Start Time Stop Time Status Last Admin Dose Admin Oxycodone/ Acetaminophen (Percocet 5/325) 1 tab 1X ONCE 08/10/16 12:00 08/10/16 12:05 DC 08/10/16 12:10 1 TAB Allergies Allergies Allergies Coded Allergies Type Severity Reaction Last Updated Verified codeine Allergy Intermediate 11/11/15 Yes duloxetine Allergy Intermediate hives 05/12/15 Yes fentanyl Allergy Intermediate hives 05/12/15 Yes ketorolac Allergy Intermediate hives 05/12/15 Yes paroxetine Allergy Intermediate hives 05/12/15 Yes promethazine Allergy Intermediate hives 05/12/15 Yes tramadol Allergy Intermediate hives, Tolerates Morphine 05/12/15 Yes prochlorperazine Adverse Reaction Intermediate Anxiety 11/25/14 Yes Physical Exam Physical Exam Constitutional: Well developed, well nourished, no acute distress, non-toxic appearance. [] Cardiovascular:Heart rate regular rhythm, no murmur [] Lungs & Thorax: Bilateral breath sounds clear to auscultation [] Abdomen: Bowel sounds normal, soft, + diffuse tenderness, no masses, no pulsatile masses. [] Current Patient Data Vital Signs Vital Signs Date Time Temp Pulse Resp B/P (MAP) Pulse Ox O2 Delivery O2 Flow Rate FiO2 08/10/16 12:00 114 20 188/83 (118) 99 Room Air 08/10/16 11:40 98.4 98.4 Lab Values Laboratory Tests Test 08/10/16 10:51 POC Urine HCG, Qualitative Hcg negative (Negative) EKG EKG [] Radiology/Procedures Radiology/Procedures EXAM: Pelvic sonogram. HISTORY: Pain. TECHNIQUE: Transabdominal sonographic imaging of the pelvis was performed. COMPARISON: CT dated 08/09/2016 and pelvic sonogram dated 07/23/2016. FINDINGS: The exam is significantly limited due to morbid obesity. The uterus measures 7.6 x 4.5 x 3.4 cm. The individual stripe measures 3.4 mm. The ovaries are not seen. There is no pelvic free fluid. IMPRESSION: 1. Significantly limited exam due to morbid obesity. The ovaries are not seen. 2. Unremarkable uterus. DICTATED and SIGNED BY: ARIELLA TRAROE MD DATE: 08/10/16 1234 Course & Med Decision Making Course & Med Decision Making Patient with right lower quadrant pain that is undifferentiated etiology however she has had quite extensive workup negative do not think repeat CT is indicated at this point. She is asking for prescription for pain medication but I told her I would not do this as she has received any prescriptions from to me different providers and she needs to follow-up with a primary care provider and/ or pain management physician. Patient was resting comfortably after the Percocet. Patient discharged in stable condition. Dragon Disclaimer Dragon Disclaimer This electronic medical record was generated, in whole or in part, using a voice recognition dictation system. Departure Departure Impression: Primary Impression: Abdominal pain Additional Impression: Nausea & vomiting Disposition: 01 HOME, SELF-CARE Condition: GOOD Referrals: NO PCP (PCP) Patient Instructions: Abdominal Pain (Nonspecific) Scripts Ondansetron (ZOFRAN ODT) 4 Mg Tab.rapdis 4 MG PO BID Y for NAUSEA/VOMITING, #10 TAB Prov: ANTIONE NATH DO 08/10/16 Problem Qualifiers Primary Impression: Abdominal pain Abdominal location: right lower quadrant Qualified Codes: R10.31 - Right lower quadrant pain ANTIONE NATH DO August 10, 2016 11:41
[2016-08-10] MEDS ORDERED: oxyCODONE/APAP 5/325 1 TAB TABLET PO ONE (12:00)
[2016-08-10] MEDS ORDERED: ONDA4TAB10 PO (12:38)
--- NOTE | 2016-08-10 12:38 | RAD ---
EXAM: Pelvic sonogram. HISTORY: Pain. TECHNIQUE: Transabdominal sonographic imaging of the pelvis was performed. COMPARISON: CT dated 08/09/2016 and pelvic sonogram dated 07/23/2016. FINDINGS: The exam is significantly limited due to morbid obesity. The uterus measures 7.6 x 4.5 x 3.4 cm. The individual stripe measures 3.4 mm. The ovaries are not seen. There is no pelvic free fluid. IMPRESSION: 1. Significantly limited exam due to morbid obesity. The ovaries are not seen. 2. Unremarkable uterus.
[2016-08-10 12:55] VITALS: BP 150/79
== END 2016-08-10 12:55 | disposition home or self-care (01) ==
LOC: ER 11:35
DX: R10.31 Right lower quadrant pain (principal); R11.2 Nausea with vomiting, unspecified; F32.9 Major depressive disorder, single episode, unspecified; E66.01 Morbid (severe) obesity due to excess calories; Z90.49 Acquired absence of other specified parts of digestive tract; Z88.5 Allergy status to narcotic agent; Z88.6 Allergy status to analgesic agent; Z88.8 Allergy status to other drugs, medicaments and biological substances
CPT/HCPCS: 76856; 81025; 84703; 99284-25

== ENCOUNTER 2016-08-31 14:40 | Emergency (ER) | payer SELFPAY ==
[~2016-08-31] VITALS: Ht 162.6 cm; Wt 179.2 kg
[~2016-08-31 14:40] MED LIST changes: +ONDA4TAB10 PO
[2016-08-31 14:45] VITALS: BP 156/110
--- NOTE | 2016-08-31 15:13 | RAD ---
EXAM: Left knee, 4 views HISTORY: Left knee pain after injury. COMPARISON: None. FINDINGS: No fractures are identified. Joint spaces are maintained. Alignment is normal. There is no joint effusion. IMPRESSION: 1. Unremarkable examination of the left knee.
[2016-08-31] MEDS ORDERED: oxyCODONE/APAP 5/325 1 TAB TABLET PO ONE (15:15)
--- NOTE | 2016-08-31 15:20 | PHYS DOC ---
Past Medical History Past Medical History: Depression, Endometriosis, Kidney Infection, Kidney Stone , Ovarian Cyst, Other Additional Past Medical Histor: PCOS,morbid obesity, endometriosis Past Surgical History: Cholecystectomy Alcohol Use: Rarely Drug Use: None Adult General Chief Complaint Chief Complaint: KNEE INJURY HPI HPI Patient is a 26 year old female with history of endometriosis, chronic pain, depression, kidney stones, ovarian cyst, who presents today with 8 out of 10 sharp left knee pain that began today while she was working out on an elliptical machine. She states she heard a "crack" from the left knee. Review of Systems Review of Systems Constitutional: Denies fever or chills [] Musculoskeletal: Left knee pain Integument: Denies rash or skin lesions [] Neurologic: Denies headache, focal weakness or sensory changes [] Endocrine: Denies polyuria or polydipsia [] Current Medications Current Medications Current Medications Medications (Trade) Dose Ordered Sig/Sharri Start Time Stop Time Status Last Admin Dose Admin Oxycodone/ Acetaminophen (Percocet 5/325) 1 tab 1X ONCE 08/31/16 15:15 08/31/16 15:16 DC 08/31/16 15:13 1 TAB Allergies Allergies Allergies Coded Allergies Type Severity Reaction Last Updated Verified codeine Allergy Intermediate 11/11/15 Yes duloxetine Allergy Intermediate hives 05/12/15 Yes fentanyl Allergy Intermediate hives 05/12/15 Yes ketorolac Allergy Intermediate hives 05/12/15 Yes paroxetine Allergy Intermediate hives 05/12/15 Yes promethazine Allergy Intermediate hives 05/12/15 Yes tramadol Allergy Intermediate hives, Tolerates Morphine 05/12/15 Yes prochlorperazine Adverse Reaction Intermediate Anxiety 11/25/14 Yes Physical Exam Physical Exam Constitutional: Well developed, well nourished, no acute distress, non-toxic appearance. [] Skin: Warm, dry, no erythema, no rash. [] Back: No tenderness, no CVA tenderness. [] Extremities: Morbidly obese patient. Left knee with no obvious deformity no bruising. Limited range of motion to the left knee due to pain. Patient able to flex and extend the left knee. +2 left pedal pulse. Cap refill less than 2 seconds the left lower extremity. Sensation intact to the left lower extremity. Neurologic: Alert and oriented X 3, normal motor function, normal sensory function, no focal deficits noted. [] Psychologic: Affect normal, judgement normal, mood normal. [] Current Patient Data Vital Signs Vital Signs Date Time Temp Pulse Resp B/P (MAP) Pulse Ox O2 Delivery O2 Flow Rate FiO2 08/31/16 15:13 16 Room Air 08/31/16 14:45 98.5 94 95 98.5 EKG EKG [] Radiology/Procedures Radiology/Procedures []PROCEDURE: KNEE LEFT 4V EXAM: Left knee, 4 views HISTORY: Left knee pain after injury. COMPARISON: None. FINDINGS: No fractures are identified. Joint spaces are maintained. Alignment is normal. There is no joint effusion. IMPRESSION: 1. Unremarkable examination of the left knee. DICTATED and SIGNED BY: JOSE PACHECO MD DATE: 08/31/16 1510 CC: LB MONSON APRN; NO PCP ~ Course & Med Decision Making Course & Med Decision Making Pertinent Labs and Imaging studies reviewed. (See chart for details) This is a 26-year-old female patient with history of chronic pain among other things who presents today with left knee pain that began while she was working out on an elliptical. Left knee x-rays interpreted by radiologist are negative for any acute findings. This patient is well known to this ED for chronic pain. She has an impressive K tracks with multiple providers giving her pain medications especially narcotics. She was discharged with no pain medicine from the ED and instructed to follow-up with her own orthopedic doctor which she states she has in [place]. I did provide her a doctor's list and another orthopedic doctor for follow-up just incase. Her blood pressure was 156/110. She denies history of hypertension but I recommended she establishes care with a PCP to follow up for high blood pressure. Dragon Disclaimer Dragon Disclaimer This electronic medical record was generated, in whole or in part, using a voice recognition dictation system. Departure Departure Impression: Primary Impression: Left knee sprain Additional Impression: Hypertension Disposition: HOME, SELF-CARE Condition: STABLE Referrals: NO PCP (PCP) GERMAIN TOWNSEND II, MD Follow-up with the orthopedic doctor next week or the provided orthopedic doctor Patient Instructions: Hypertension, Knee Sprain Additional Instructions: You were seen for left knee sprain. Your x-ray of the left knee was negative for any acute findings. Ice and elevate the extremity. Follow-up with your own orthopedic doctor in [place] or the provided orthopedic doctor in the next 7 days. Take [id number] pain relievers as needed. Your blood pressure was 156/110. Follow-up with the primary care doctor from the list provided or your own doctor to have it rechecked and make sure you're not suffering from hypertension. Problem Qualifiers Primary Impression: Left knee sprain Encounter type: initial encounter Involved ligament of knee: unspecified ligament Qualified Codes: S83.92XA - Sprain of unspecified site of left knee, initial encounter Additional Impression: Hypertension Hypertension type: unspecified secondary hypertension Qualified Codes: I15.9 - Secondary hypertension, unspecified LB MONSON HEADING AND PRIMING TOOL SETTER Aug 31, 2016 15:20
== END 2016-08-31 15:24 | disposition home or self-care (01) ==
LOC: ER 14:40
DX: S83.92XA Sprain of unspecified site of left knee, initial encounter (principal); I10 Essential (primary) hypertension; G89.29 Other chronic pain; E66.01 Morbid (severe) obesity due to excess calories; Z68.44 Body mass index [BMI] 60.0-69.9, adult; Z87.442 Personal history of urinary calculi; E28.2 Polycystic ovarian syndrome; Z90.49 Acquired absence of other specified parts of digestive tract; Z88.5 Allergy status to narcotic agent; Z88.6 Allergy status to analgesic agent; Z88.8 Allergy status to other drugs, medicaments and biological substances; X50.9XXA Other and unspecified overexertion or strenuous movements or postures, initial encounter; Y93.89 Activity, other specified; Y99.0 Civilian activity done for income or pay; Y92.69 Other specified industrial and construction area as the place of occurrence of the external cause
CPT/HCPCS: 73564; 99284

== ENCOUNTER 2016-10-17 18:23 | Emergency (ER) | payer SELFPAY ==
[~2016-10-17] VITALS: Ht 172.7 cm; Wt 179.2 kg
--- NOTE | 2016-10-17 18:40 | PHYS DOC ---
Past Medical History Past Medical History: Depression, Endometriosis, Kidney Infection, Kidney Stone , Ovarian Cyst, Other Additional Past Medical Histor: PCOS,morbid obesity, endometriosis Past Surgical History: Cholecystectomy Alcohol Use: Rarely Drug Use: None Adult General Chief Complaint Chief Complaint: PELVIC PAIN [facility] HPI Patient is a 26 year old female presenting to the emergency department for evaluation of chronic pelvic pain. Patient initially said that this pain has only been going on for 2 days and that she is following with an OB that she has seen 3 times in the or taking her off and on control. Patient then admitted that this pain has been going on for 5 years and that there is nothing different with the pain today rather she has exacerbations. Patient says the pain is diffuse lower abdominal and associated with nausea and vomiting. She has had 11 opioid prescriptions filled in September however she denied taking any opioid medications at all. I told her that I looked up her prescription profile and she then admitted that she was taking opioids but they do not help her pain. I told her that she needs specialty follow-up including pain management for her chronic pain. Review of Systems Review of Systems Constitutional: Denies fever or chills [] Cardiovascular: No additional information not addressed in HPI [] GI: + abdominal pain, nausea, vomiting : Denies dysuria or hematuria [] Allergies Allergies Allergies Coded Allergies Type Severity Reaction Last Updated Verified codeine Allergy Intermediate 11/11/15 Yes duloxetine Allergy Intermediate hives 05/12/15 Yes fentanyl Allergy Intermediate hives 05/12/15 Yes ketorolac Allergy Intermediate hives 05/12/15 Yes paroxetine Allergy Intermediate hives 05/12/15 Yes promethazine Allergy Intermediate hives 05/12/15 Yes tramadol Allergy Intermediate hives, Tolerates Morphine 05/12/15 Yes prochlorperazine Adverse Reaction Intermediate Anxiety 11/25/14 Yes Physical Exam Physical Exam Constitutional: Well developed, well nourished, no acute distress, non-toxic appearance. [] Cardiovascular:Heart rate regular rhythm, no murmur [] Lungs & Thorax: Bilateral breath sounds clear to auscultation [] Abdomen: Bowel sounds normal, soft, diffuse lower abdominal tenderness, no masses, no pulsatile masses. [] EKG EKG [] Radiology/Procedures Radiology/Procedures [] Course & Med Decision Making Course & Med Decision Making I told patient my concerns of opioid abuse and she is unwilling to accept this opinion. Patient will be discharged with instructions to follow with an CLIENT SERVICE REPRESENTATIVE and pain management and seek help for her drug abuse. Dragradha Disclaimer Dragon Disclaimer This electronic medical record was generated, in whole or in part, using a voice recognition dictation system. Departure Departure Impression: Primary Impression: Chronic pelvic pain in female Additional Impression: Drug-seeking behavior Disposition: HOME, SELF-CARE Condition: GOOD Referrals: NO PCP (PCP) JOSE WEBER MD Patient Instructions: Chronic Pain Management Scripts Ondansetron (ZOFRAN ODT) 4 Mg Tab.rapdis 4 MG PO BID Y for NAUSEA/VOMITING, #10 TAB Prov: ANTIONE NATH DO 10/17/16 Problem Qualifiers ANTIONE NATH DO Oct 17, 2016 18:40
[2016-10-17 18:49] VITALS: BP 173/105
[2016-10-17] MEDS ORDERED: ONDA4TAB10 PO (18:50)
[2016-10-17] MEDS ORDERED: ONDANSETRON ODT 4 MG TAB.RAPDIS. PO ONE (19:00)
== END 2016-10-17 19:00 | disposition home or self-care (01) ==
LOC: ER 18:23
DX: G89.29 Other chronic pain (principal); R10.2 Pelvic and perineal pain; R11.2 Nausea with vomiting, unspecified; R10.813 Right lower quadrant abdominal tenderness; R10.814 Left lower quadrant abdominal tenderness; F32.9 Major depressive disorder, single episode, unspecified; E28.2 Polycystic ovarian syndrome; E66.01 Morbid (severe) obesity due to excess calories; Z68.44 Body mass index [BMI] 60.0-69.9, adult; Z87.442 Personal history of urinary calculi; Z90.49 Acquired absence of other specified parts of digestive tract; Z88.5 Allergy status to narcotic agent; Z88.8 Allergy status to other drugs, medicaments and biological substances; Z88.4 Allergy status to anesthetic agent; Z76.5 Malingerer [conscious simulation]
CPT/HCPCS: 81025; 99283; Q0162

== ENCOUNTER 2017-02-23 07:33 | Emergency (ER) | payer SELFPAY ==
[~2017-02-23] VITALS: Ht 162.6 cm; Wt 213.2 kg
[~2017-02-23 07:33] MED LIST changes: +NAPR-682 PO; -NAPR550T PO
[2017-02-23] MEDS ORDERED: IV NORMAL SALINE 1000ML BAG 1,000 ML IV ONE (07:45)
[2017-02-23] MEDS ORDERED: KETOROLAC 30 MG/ML INJ. IV ONE (07:45)
[2017-02-23] MEDS ORDERED: MORPHINE SULFATE 4 MG/ML DISP.SYRIN. IV ONE (07:45)
[2017-02-23] MEDS ORDERED: ONDANSETRON PF 4 MG/2 ML VIAL. IV ONE ×2 (07:45→09:15)
--- NOTE | 2017-02-23 07:52 | PHYS DOC ---
Past Medical History Past Medical History: Depression, Endometriosis, Kidney Infection, Kidney Stone , Ovarian Cyst, Other Additional Past Medical Histor: PCOS,morbid obesity, endometriosis Past Surgical History: Cholecystectomy Alcohol Use: Rarely Drug Use: None Adult General Chief Complaint Chief Complaint: FLANK PAIN HPI HPI Patient is a 27 year old female with a history of endometriosis and kidney stones presents to the ED complaining of left flank pain x 1 day. Started in left flank and now radiates around to left lower quadrant. Describes as sharp. Rates as 9/10. Associated symptoms includes subjective fever, hematuria and vomiting. Denies chest pain, shortness of breath, dysuria, diarrhea or weakness. Review of Systems Review of Systems Constitutional: Complains of subjective fever. Denies chills [] Eyes: Denies change in visual acuity, redness, or eye pain [] HENT: Denies nasal congestion or sore throat [] Respiratory: Denies cough or shortness of breath [] Cardiovascular: No additional information not addressed in HPI [] GI: Complains of abdominal pain and vomiting. Denies bloody stools or diarrhea [ ] : Complains of hematuria. Denies dysuria.[] Musculoskeletal: Denies back pain or joint pain [] Integument: Denies rash or skin lesions [] Neurologic: Denies headache, focal weakness or sensory changes [] Endocrine: Denies polyuria or polydipsia [] All other systems were reviewed and found to be within normal limits, except as documented in this note. Current Medications Current Medications Current Medications Medications (Trade) Dose Ordered Sig/Sharri Start Time Stop Time Status Last Admin Dose Admin Hydromorphone HCl (Dilaudid) 1 mg 1X ONCE 02/23/17 09:15 02/23/17 09:19 DC 02/23/17 09:23 1 MG Ketorolac Tromethamine (Toradol) 30 mg 1X ONCE 02/23/17 07:45 02/23/17 07:46 UNV Morphine Sulfate 4 mg 1X ONCE 02/23/17 07:45 02/23/17 07:48 DC 02/23/17 08:18 4 MG Ondansetron HCl (Zofran) 4 mg 1X ONCE 02/23/17 09:15 02/23/17 09:19 DC 02/23/17 09:24 4 MG Sodium Chloride 1,000 ml @ 1,000 mls/hr 1X ONCE 02/23/17 07:45 02/23/17 08:44 DC 02/23/17 08:19 1,000 MLS/HR Allergies Allergies Allergies Coded Allergies Type Severity Reaction Last Updated Verified codeine Allergy Intermediate 11/11/15 Yes duloxetine Allergy Intermediate hives 05/12/15 Yes fentanyl Allergy Intermediate hives 05/12/15 Yes ketorolac Allergy Intermediate hives 05/12/15 Yes paroxetine Allergy Intermediate hives 05/12/15 Yes promethazine Allergy Intermediate hives 05/12/15 Yes tramadol Allergy Intermediate hives, Tolerates Morphine 05/12/15 Yes prochlorperazine Adverse Reaction Intermediate Anxiety 11/25/14 Yes Physical Exam Physical Exam Constitutional: Well developed, well nourished, no acute distress, non-toxic appearance. [] HENT: Normocephalic, atraumatic, bilateral external ears normal, oropharynx moist, no oral exudates, nose normal. [] Eyes: PERRLA, EOMI, conjunctiva normal, no discharge. [] Neck: Normal range of motion, no tenderness, supple, no stridor. [] Cardiovascular:Heart rate regular rhythm, no murmur [] Lungs & Thorax: Bilateral breath sounds clear to auscultation [] Abdomen: Bowel sounds normal, soft, no tenderness, no masses, no pulsatile masses. [] Skin: Warm, dry, no erythema, no rash. [] Back: No tenderness, MILD LEFT CVA tenderness. [] Extremities: No tenderness, no cyanosis, no clubbing, ROM intact, no edema. [] Neurologic: Alert and oriented X 3, normal motor function, normal sensory function, no focal deficits noted. [] Psychologic: Affect normal, judgement normal, mood normal. [] Current Patient Data Vital Signs Vital Signs Date Time Temp Pulse Resp B/P (MAP) Pulse Ox O2 Delivery O2 Flow Rate FiO2 02/23/17 09:23 22 98 02/23/17 08:32 101 148/95 (112) Room Air 02/23/17 07:35 98.2 98.2 Lab Values Laboratory Tests Test 02/23/17 07:40 02/23/17 07:46 02/23/17 08:25 Urine Collection Type Unknown Urine Color Yellow Urine Clarity Cloudy Urine pH 5.5 Urine Specific [place] 1.025 Urine Protein Negative mg/dL (NEG-TRACE) Urine Glucose (UA) Negative mg/dL (NEG) Urine Ketones (Stick) Negative mg/dL (NEG) Urine Blood Large (NEG) Urine Nitrite Negative (NEG) Urine Bilirubin Negative (NEG) Urine Urobilinogen Dipstick 0.2 mg/dL (0.2 mg/dL) Urine Leukocyte Esterase Negative (NEG) Urine RBC 20-40 /HPF (0-2) Urine WBC Occ /HPF (0-4) Urine Squamous Epithelial Cells Many /LPF Urine Bacteria Few /HPF (0-FEW) Urine Mucus Marked /LPF POC Urine HCG, Qualitative Hcg negative (Negative) White Blood Count 12.2 x10^3/uL (4.0-11.0) H Red Blood Count 4.51 x10^6/uL (3.50-5.40) Hemoglobin 12.5 g/dL (12.0-15.5) Hematocrit 39.2 % (36.0-47.0) Mean Corpuscular Volume 87 fL (79-100) Mean Corpuscular Hemoglobin 28 pg (25-35) Mean Corpuscular Hemoglobin Concent 32 g/dL (31-37) Red Cell Distribution Width 15.5 % (11.5-14.5) H Platelet Count 300 x10^3/uL (140-400) Sodium Level 140 mmol/L (136-145) Potassium Level 3.6 mmol/L (3.5-5.1) Chloride Level 102 mmol/L (98-107) Carbon Dioxide Level 26 mmol/L (21-32) Anion Gap 12 (6-14) Blood Urea Nitrogen 15 mg/dL (7-20) Creatinine 0.9 mg/dL (0.6-1.0) Estimated GFR (Cockcroft-Gault) 75.1 BUN/Creatinine Ratio 17 (6-20) Glucose Level 123 mg/dL (70-99) H Calcium Level 8.9 mg/dL (8.5-10.1) Total Bilirubin 0.2 mg/dL (0.2-1.0) Aspartate Amino Transferase (AST) 23 U/L (15-37) Alanine Aminotransferase (ALT) 34 U/L (14-59) Alkaline Phosphatase 79 U/L (46-116) Total Protein 7.7 g/dL (6.4-8.2) Albumin 3.4 g/dL (3.4-5.0) Albumin/Globulin Ratio 0.8 (1.0-1.7) L Lipase 93 U/L (73-393) Laboratory Tests 02/23/17 08:25 Laboratory Tests 02/23/17 08:25 EKG EKG [] Radiology/Procedures Radiology/Procedures [] Course & Med Decision Making Course & Med Decision Making Pertinent Labs and Imaging studies reviewed. (See chart for details) Below is information obtained from [employer] when patient's name was searched on the state database. At discharge, we discussed what medications patient is taking at home and patient states only Motrin. Presented the information found to patient. Discussed in detail patient's opiate abuse. Patient admits that she has had a problem over the last year or two since she stopped seeing her chronic pain doctor. States it really has gotten out of control. Patient's mother at bedside. Discussed with patient treatment options for opiate abuse. Patient states she is interested in receiving treatment. Call placed to PAT team that provided us with two treatment options for uninsured patients ( [facility] and [facility] for opiate abuse-see below). Provided written contact information, education and instructions for follow-up for her addiction. Mother plans to accompany patient to the treatment option of her choice. Patient denies homicidal/suicidal ideation. Discussed the importance of follow-up and risks if patient does not follow-up. Patient understands and agrees with plan. Mother at bedside. Please note that this person has received controlled substances prescriptions written by 16 prescribers and had them filled at 7 pharmacies during the past 3 months.This equals or exceeds the threshold of 5 prescribers and 5 pharmacies and while there may be a valid reason for this, it also may be indicative of the practice of prescriber and pharmacy shopping. 02/19/2017 1 02/19/2017 HYDROCODON-ACETAMINOPHEN 5-325 20.0 5 SH KIP [id number] [facility] (2081) 0 20.0 [place] 02/15/2017 8 02/14/2017 OXYCODONE-ACETAMINOPHEN 5-325 10.0 2 TI MIN [id number] [facility] (5663) 0 37.5 [place] 02/08/2017 1 02/08/2017 OXYCODONE HCL 5 MG TABLET 8.0 2 HE NORA [id number] [facility] (1960) 0 30.0 [place] 02/07/2017 1 02/06/2017 HYDROCODON-ACETAMINOPHEN 5-325 5.0 2 SP A. [id number] [facility] (2551) 0 12.5 Comm [facility] 02/04/2017 8 02/03/2017 OXYCODONE-ACETAMINOPHEN 5-325 22.0 3 RO CARLEY [id number] [facility] (5663) 0 55.0 Comm [facility] 02/02/2017 8 02/02/2017 OXYCODONE HCL 5 MG TABLET 12.0 3 HE NORA [id number] [facility] (5663) 0 30.0 Comm [facility] 01/27/2017 5 01/26/2017 HYDROCODON-ACETAMINOPHN 10-325 16.0 4 AN DEK [id number] [facility] (9951) 0 40.0 Comm [facility] 01/24/2017 8 01/24/2017 HYDROCODON-ACETAMINOPHEN 5-325 20.0 2 TH BAR [id number] [facility] (5663) 0 50.0 Comm [facility] 01/22/2017 8 01/22/2017 OXYCODONE-ACETAMINOPHEN 5-325 15.0 2 HE ARS [id number] [facility] (5663) 0 56.25 Comm [facility] 01/20/2017 9 01/19/2017 OXYCODONE-ACETAMINOPHEN 5-325 8.0 2 EV AMAURY [id number] [facility] (7019) 0 30.0 [place] 01/10/2017 3 01/10/2017 OXYCODONE-ACETAMINOPHEN 5-325 15.0 2 HE ARS [id number] [facility] (4151) 0 56.25 Comm [facility] 01/05/2017 12 01/05/2017 ACETAMINOPHEN-COD #3 TABLET 12.0 2 LO SMI [id number] [facility] (5663) 0 27.0 Comm [facility] 01/02/2017 9 01/02/2017 OXYCODONE-ACETAMINOPHEN 5-325 24.0 3 SH STA [id number] [facility] (3121) 0 60.0 Comm [facility] 12/27/2016 3 12/27/2016 OXYCODONE-ACETAMINOPHEN 5-325 8.0 2 EV AMAURY [id number] [facility] (0351) 0 30.0 Comm [facility] 12/20/2016 12 12/20/2016 HYDROCODON-ACETAMINOPHEN 5-325 12.0 3 HE NORA [id number] [facility] (5663) 0 20.0 [place] 12/13/2016 12 12/13/2016 OXYCODON-ACETAMINOPHEN 7.5-325 30.0 8 SH AKK [id number] [facility] (5663) 0 42.188 [place] 12/11/2016 3 12/11/2016 HYDROCODON-ACETAMINOPHEN 5-325 8.0 2 CR HIR [id number] [facility] (4709) 0 20.0 [place] 12/07/2016 3 12/07/2016 OXYCODONE-ACETAMINOPHEN 10-325 12.0 3 AN DEK [id number] [facility] (2045) 0 60.0 [place] 11/29/2016 12 11/29/2016 OXYCODONE-ACETAMINOPHEN 5-325 24.0 4 AR YOUNG [id number] [facility] (5663) 0 45.0 [place] 11/25/2016 3 11/25/2016 OXYCONTIN 10 MG TABLET 6.0 3 LI KER [id number] [facility] (2880) 0 30.0 [place] 11/19/2016 4 11/19/2016 HYDROCODON-ACETAMINOPHEN 5-325 8.0 2 AL SEE [id number] [facility] (4423) 0 20.0 [place] 11/17/2016 4 11/17/2016 OXYCODONE-ACETAMINOPHEN 5-325 15.0 4 HE ARS [id number] [facility] (994) 0 28.125 [place] 11/11/2016 9 11/11/2016 OXYCODONE-ACETAMINOPHEN 5-325 15.0 3 JU GAUTAM [id number] [facility] (5663) 0 37.5 [place] 11/07/2016 9 11/07/2016 OXYCODONE-ACETAMINOPHEN 5-325 20.0 3 TI AMAURY [id number] [facility] (2947) 0 50.0 [place] 11/03/2016 9 11/02/2016 OXYCODONE-ACETAMINOPHEN 5-325 15.0 3 BE SAGE [id number] [facility] (5663) 0 37.5 [place] 10/30/2016 3 10/30/2016 OXYCODONE HCL 5 MG TABLET 40.0 5 JA LORELEI [id number] [facility] (1793) 0 60.0 [place] 10/24/2016 3 10/24/2016 OXYCODONE-ACETAMINOPHEN 5-325 15.0 4 JA LAURA [id number] [facility] (6527) 0 28.125 [place] 10/23/2016 3 10/22/2016 OXYCODONE-ACETAMINOPHEN 5-325 5.0 1 TO [facility] [id number] [facility] (1959) 0 37.5 [place] 10/18/2016 9 10/18/2016 OXYCODONE HCL 5 MG TABLET 40.0 5 AI NIMO [id number] [facility] (5663) 0 60.0 [place] 10/16/2016 3 10/16/2016 HYDROCODON-ACETAMINOPHEN 5-325 5.0 1 KA RAZIA [id number] [facility] (1959) 0 25.0 [place] 10/12/2016 6 10/12/2016 HYDROCODON-ACETAMINOPHEN 5-325 10.0 2 TH BAR [id number] [facility] (6165) 0 25.0 Private [place] 10/11/2016 13 10/11/2016 OXYCODONE-ACETAMINOPHEN 5-325 8.0 1 CH CAR [id number] [facility] (9569) 0 60.0 Private [place] 10/07/2016 3 10/06/2016 OXYCODONE-ACETAMINOPHEN 5-325 20.0 3 DA BIX [id number] [facility] (7478) 0 50.0 [place] 10/05/2016 11 10/05/2016 OXYCODONE-ACETAMINOPHEN 5-325 12.0 3 MESHA SMI [id number] [facility] (5663) 0 30.0 [place] 10/04/2016 11 10/03/2016 HYDROCODON-ACETAMINOPHEN 5-325 10.0 2 MESHA SMI [id number] [facility] (5663) 0 25.0 [place] 10/01/2016 7 10/01/2016 OXYCODONE-ACETAMINOPHEN 5-325 20.0 4 DA PEDRITO [id number] [facility] (1887) 0 37.5 [place] 09/29/2016 3 09/28/2016 OXYCODON-ACETAMINOPHEN 7.5-325 20.0 5 MA BUR [id number] [facility] (2021) 0 45.0 [place] 09/26/2016 12 09/25/2016 OXYCODONE-ACETAMINOPHEN 10-325 20.0 4 TH TALITA [id number] [facility] (5663) 0 75.0 [place] 09/23/2016 12 09/23/2016 OXYCODONE-ACETAMINOPHEN 5-325 15.0 3 KU KLO [id number] [facility] (6863) 0 37.5 [place] 09/21/2016 3 09/21/2016 OXYCODONE-ACETAMINOPHEN 5-325 20.0 3 DA BIX [id number] [facility] (4761) 0 50.0 [place] 09/14/2016 12 09/14/2016 HYDROCODON-ACETAMINOPHEN 5-325 20.0 2 KH RITA [id number] [facility] (2563) 0 50.0 [place] 08/14/2016 9 08/13/2016 HYDROCODON-ACETAMINOPHEN 5-325 4.0 1 NV PFA [id number] [facility] (8283) 0 20.0 [place] 08/08/2016 9 08/08/2016 OXYCODONE-ACETAMINOPHEN 5-325 10.0 3 ER BERTO [id number] [facility] (6054) 0 25.0 [place] 08/04/2016 2 08/04/2016 OXYCODONE-ACETAMINOPHEN 5-325 20.0 5 KA COU [id number] [facility] (3941) 0 30.0 [place] 08/03/2016 9 08/02/2016 OXYCODONE HCL 5 MG TABLET 12.0 3 HE NORA [id number] [facility] (6814) 0 30.0 [place] 07/25/2016 9 07/25/2016 OXYCODONE-ACETAMINOPHEN 5-325 12.0 2 NV PFA [id number] [facility] (6091) 0 45.0 [place] 07/24/2016 6 07/23/2016 OXYCODONE-ACETAMINOPHEN 5-325 10.0 3 NV PFA [id number] [facility] (5828) 0 25.0 Private [place] 07/22/2016 9 07/21/2016 OXYCODON-ACETAMINOPHEN 7.5-325 12.0 1 MESHA SHARRI [id number] [facility] (0101) 0 135.0 [place] 07/20/2016 9 07/20/2016 HYDROCODON-ACETAMINOPHEN 5-325 15.0 4 NI TAR [id number] [facility] (0291) 0 18.75 [place] 07/19/2016 6 07/19/2016 OXYCODONE-ACETAMINOPHEN 5-325 12.0 4 NV PFA [id number] [facility] (5828) 0 22.5 Private [place] 07/08/2016 9 07/07/2016 HYDROCODON-ACETAMINOPHEN 5-325 15.0 3 AN REF [id number] [facility] (6171) 0 25.0 [place] 06/27/2016 2 06/27/2016 OXYCODONE-ACETAMINOPHEN 5-325 10.0 2 DA HAG [id number] [facility] (2080) 0 37.5 [place] 06/24/2016 10 06/23/2016 HYDROCODON-ACETAMINOPHEN 5-325 15.0 3 CA JEFFRY [id number] [facility] (7603) 0 25.0 [place] 06/16/2016 1 06/16/2016 OXYCODONE-ACETAMINOPHEN 5-325 14.0 2 DA BEATRICE [id number] [facility] (2080) 0 52.5 [place] 06/15/2016 9 06/14/2016 HYDROCODON-ACETAMINOPHEN 5-325 12.0 3 SI CLA [id number] [facility] (9559) 0 20.0 [place] 06/08/2016 9 06/07/2016 OXYCODONE-ACETAMINOPHEN 5-325 30.0 4 RO CARLEY [id number] [facility] (9031) 0 56.25 [place] 06/05/2016 9 06/05/2016 HYDROCODON-ACETAMINOPHEN 5-325 8.0 2 PA CON [id number] [facility] (3551) 0 20.0 Private [place] 05/31/2016 9 05/31/2016 ACETAMINOPHEN-COD #3 TABLET 15.0 3 DA SHARRI [id number] [facility] (8131) 0 22.5 Private Pay [place] 05/21/2016 9 05/21/2016 OXYCODONE-ACETAMINOPHEN 5-325 12.0 1 RO MUT [id number] [facility] (0404) 0 90.0 [place] 05/18/2016 9 05/17/2016 OXYCODONE-ACETAMINOPHEN 5-325 20.0 5 ER WIE [id number] [facility] (7109) 0 30.0 [place] 05/06/2016 9 05/05/2016 OXYCODONE-ACETAMINOPHEN 5-325 20.0 2 TE BRO [id number] [facility] (3447) 0 75.0 [place] 05/01/2016 9 05/01/2016 OXYCODONE-ACETAMINOPHEN 5-325 24.0 4 RY REE [id number] [facility] (8210) 0 45.0 [place] 04/28/2016 1 04/27/2016 OXYCODONE-ACETAMINOPHEN 5-325 15.0 2 LI MOF [id number] [facility] (8285) 0 56.25 [place] 04/21/2016 9 04/21/2016 OXYCODONE-ACETAMINOPHEN 5-325 12.0 3 KUSH [id number] [facility] (3133) 0 30.0 [place] 04/08/2016 9 04/08/2016 OXYCODONE-ACETAMINOPHEN 10-325 20.0 5 GR GOO [id number] [facility] (8169) 0 60.0 [place] 03/27/2016 9 03/27/2016 OXYCODONE-ACETAMINOPHEN 5-325 12.0 2 L MSN [id number] [facility] (8169) 0 45.0 [place] 03/06/2016 1 03/06/2016 HYDROCODON-ACETAMINOPH 7.5-325 12.0 2 CO NORA [id number] [facility] (2959) 0 45.0 [place] 03/04/2016 6 03/04/2016 OXYCODONE-ACETAMINOPHEN 5-325 5.0 3 RO FRO [id number] [facility] (5828) 0 12.5 Private Pay [place] 03/02/2016 1 03/01/2016 OXYCODONE-ACETAMINOPHEN 5-325 10.0 1 RO MUT [id number] [facility] (8285) 0 75.0 [place] 02/28/2016 1 02/28/2016 OXYCODONE-ACETAMINOPHEN 5-325 10.0 2 SC HAC [id number] [facility] (8285) 0 37.5 [place] 02/25/2016 9 02/24/2016 HYDROCODON-ACETAMINOPHEN 5-325 10.0 3 SC HAC [id number] [facility] (3082) 0 16.667 Comm [place] Dragon Disclaimer Dragon Disclaimer This electronic medical record was generated, in whole or in part, using a voice recognition dictation system. Departure Departure Impression: Primary Impression: Flank pain Disposition: 01 HOME, SELF-CARE Condition: STABLE Referrals: NO PCP (PCP) IRAJ SOSA MD Patient Instructions: Flank Pain Additional Instructions: [facility] [address] [place] [address] [facility] Screening tool to access treatment for opiate abuse [phone] [facility] [phone] Mention [facility] Scripts Hydroxyzine Hcl (HYDROXYZINE HCL) 25 Mg Tablet 1 TAB PO TID, #30 TAB Prov: NITHIN ORDAZ 02/23/17 NITHIN ORDAZ Feb 23, 2017 07:52
[2017-02-23 07:55] LABS: BILIRUBIN,URINE NEGATIVE (NEG); GLUCOSE,URINE NEGATIVE (NEG); NITRITE,URINE NEGATIVE (NEG); PH,URINE 5.5; PROTEIN,URINE NEGATIVE (NEG-TRACE); UROBILINOGEN,URINE 0.2 mg/dL (0.2 mg/dL)
[2017-02-23 08:12] LABS: BACTERIA,URINE FEW /HPF (0-FEW); RBC,URINE 20-40 /HPF (0-2); SQUAMOUS EPITHELIAL CELL,UR MANY /LPF; WBC,URINE OCC /HPF (0-4)
[2017-02-23 08:32] VITALS: BP 148/95
[2017-02-23 08:44] LABS: HEMATOCRIT 39.2 % (36.0-47.0); HEMOGLOBIN 12.5 g/dL (12.0-15.5); RED BLOOD COUNT 4.51 x10^6/uL (3.50-5.40); RED CELL DISTRIBUTION WIDTH 15.5 % (11.5-14.5); WHITE BLOOD COUNT 12.2 x10^3/uL (4.0-11.0)
[2017-02-23 08:48] LABS: CALCIUM 8.9 mg/dL (8.5-10.1); CREATININE 0.9 mg/dL (0.6-1.0); GFR 75.1; POTASSIUM 3.6 mmol/L (3.5-5.1)
[2017-02-23 08:55] LABS: ALBUMIN 3.4 g/dL (3.4-5.0); ALBUMIN/GLOBULIN RATIO 0.8 (1.0-1.7); TOTAL BILIRUBIN 0.2 mg/dL (0.2-1.0); TOTAL PROTEIN 7.7 g/dL (6.4-8.2)
[2017-02-23] MEDS ORDERED: HYDROmorphone 2 MG/ML VIAL IV ONE (09:15)
--- NOTE | 2017-02-23 09:28 | RAD ---
One or more of the following individualized dose reduction techniques were utilized for this examination: 1. Automated exposure control 2. Adjustment of the mA and/or kV according to patient size 3. Use of iterative reconstruction technique CT abdomen and pelvis without contrast. History: Left flank pain, history of kidney stones CT scan of the abdomen and pelvis was done without contrast. Lung bases are clear. There is no pleural effusion. A liver lesion is not identified. Spleen and adrenal glands are normal. Pancreas is unremarkable. There is no mass or hydronephrosis or calculus in either kidney. There is no free air or ascites or bowel obstruction or adenopathy. Small bowel pattern is normal. Appendix is normal. Uterus and ovaries are unremarkable. There is not evidence of an acute diverticulitis. Impression: 1. No renal or ureteral calculus evident. 2. No abdominal or pelvic mass or other acute finding noted.
[2017-02-23] MEDS ORDERED: HYDR25TA PO (10:06)
== END 2017-02-23 10:16 | disposition home or self-care (01) ==
LOC: ER 07:33
DX: R10.32 Left lower quadrant pain (principal); R50.9 Fever, unspecified; R31.9 Hematuria, unspecified; E28.2 Polycystic ovarian syndrome; Z90.49 Acquired absence of other specified parts of digestive tract; Z87.442 Personal history of urinary calculi; Z88.4 Allergy status to anesthetic agent; Z88.5 Allergy status to narcotic agent; Z88.6 Allergy status to analgesic agent; Z88.8 Allergy status to other drugs, medicaments and biological substances
CPT/HCPCS: 36415; 74176; 80053; 81001; 81025; 83690; 85027; 96361; 96374; 96375; 96376; 99285; J1170; J2270; J2405; J7030

== ENCOUNTER 2017-03-30 04:49 | Emergency (ER) | payer SELFPAY ==
[2017-03-30 05:19] LABS: URINE HCG POC HCG NEGATIVE (Negative)
[2017-03-30] MEDS: ONDANSETRON PF 4 MG/2 ML VIAL. IV (05:48)
[2017-03-30 06:04] LABS: ADD MAN DIFF? NO
[2017-03-30 06:08] LABS: BILIRUBIN,URINE MODERATE (NEG); CLARITY,URINE CLEAR; COLOR,URINE AMBER; GLUCOSE,URINE NEGATIVE (NEG); NITRITE,URINE NEGATIVE (NEG); PROTEIN,URINE 100 mg/dL (NEG-TRACE); UROBILINOGEN,URINE 0.2 mg/dL (0.2 mg/dL)
[2017-03-30 06:11] LABS: BASO # 0.1 x10^3/uL (0.0-0.2); BASO % 1 % (0-3); EOS # 0.1 x10^3/uL (0.0-0.7); EOS % 1 % (0-3); HEMATOCRIT 41.1 % (36.0-47.0); HEMOGLOBIN 13.5 g/dL (12.0-15.5); LYMPH % 24 % (24-48); MEAN CORPUSCULAR HEMOGLOBIN 28 pg (25-35); MEAN CORPUSCULAR HGB CONC 33 g/dL (31-37); MEAN CORPUSCULAR VOLUME 86 fL (79-100); MONO # 0.6 x10^3/uL (0.0-1.1); MONO % 5 % (0-9); NEUT # 8.7 x10^3uL (1.8-7.7); NEUT % 69 % (31-73); PLATELET COUNT 361 x10^3/uL (140-400); RED BLOOD COUNT 4.79 x10^6/uL (3.50-5.40); RED CELL DISTRIBUTION WIDTH 15.4 % (11.5-14.5); WHITE BLOOD COUNT 12.5 x10^3/uL (4.0-11.0)
[2017-03-30 06:15] LABS: ANION GAP 14 (6-14); BACTERIA,URINE 0 /HPF (0-FEW); BLOOD UREA NITROGEN 17 mg/dL (7-20); BUN/CREATININE RATIO 15 (6-20); CALCIUM 9.2 mg/dL (8.5-10.1); CARBON DIOXIDE 27 mmol/L (21-32); CHLORIDE 101 mmol/L (98-107); CREATININE 1.1 mg/dL (0.6-1.0); GFR 59.6; GLUCOSE 97 mg/dL (70-99); POTASSIUM 3.4 mmol/L (3.5-5.1); RBC,URINE 0 /HPF (0-2); SODIUM 142 mmol/L (136-145); SQUAMOUS EPITHELIAL CELL,UR MOD /LPF; WBC,URINE 0 /HPF (0-4)
[2017-03-30 06:20] LABS: ALBUMIN 3.8 g/dL (3.4-5.0); ALBUMIN/GLOBULIN RATIO 0.8 (1.0-1.7); ALK PHOS 83 U/L (46-116); ALT (SGPT) 45 U/L (14-59); AST (SGOT) 33 U/L (15-37); LIPASE 113 U/L (73-393); TOTAL BILIRUBIN 0.3 mg/dL (0.2-1.0); TOTAL PROTEIN 8.3 g/dL (6.4-8.2)
[2017-03-30] MEDS: HYDROmorphone 2 MG/ML VIAL IV/SQ ×2 (06:37→07:30)
[2017-03-30] MEDS: IV NORMAL SALINE 1000ML BAG 1,000 ML IV (06:39)
== END 2017-03-30 08:38 | disposition home or self-care (01) ==
LOC: ER 04:49
DX: R10.2 Pelvic and perineal pain (principal); R11.2 Nausea with vomiting, unspecified; F32.9 Major depressive disorder, single episode, unspecified; E28.2 Polycystic ovarian syndrome; E66.01 Morbid (severe) obesity due to excess calories; Z68.44 Body mass index [BMI] 60.0-69.9, adult; Z87.442 Personal history of urinary calculi; Z88.4 Allergy status to anesthetic agent; Z88.5 Allergy status to narcotic agent; Z88.8 Allergy status to other drugs, medicaments and biological substances
CPT/HCPCS: 36415; 76830; 76856; 80053; 81001; 81025; 83690; 85025; 96361; 96374; 96375; 96376; 99285-25; J1170; J2405; J7030

== ENCOUNTER 2017-04-21 13:04 | Emergency (ER) | payer SELFPAY ==
[2017-04-21] MEDS ORDERED: 0.9 % SODIUM CHLORIDE 10 ML DISP.SYRIN. IV ×2 (13:45)
[2017-04-21] MEDS ORDERED: ONDANSETRON PF 4 MG/2 ML VIAL. IV ×2 (13:45)
[2017-04-21] MEDS ORDERED: IV NORMAL SALINE 1000ML BAG 1,000 ML IV ×2 (14:00)
[2017-04-21 14:09] LABS: ADD MAN DIFF? NO
[2017-04-21 14:14] LABS: BASO # 0.1 x10^3/uL (0.0-0.2); BASO % 1 % (0-3); EOS # 0.3 x10^3/uL (0.0-0.7); EOS % 3 % (0-3); HEMOGLOBIN 12.9 g/dL (12.0-15.5); LYMPH # 1.9 x10^3/uL (1.0-4.8); LYMPH % 16 % (24-48); MEAN CORPUSCULAR HEMOGLOBIN 28 pg (25-35); MEAN CORPUSCULAR HGB CONC 33 g/dL (31-37); MEAN CORPUSCULAR VOLUME 85 fL (79-100); MONO # 0.4 x10^3/uL (0.0-1.1); MONO % 4 % (0-9); NEUT # 8.9 x10^3uL (1.8-7.7); NEUT % 77 % (31-73); PLATELET COUNT 341 x10^3/uL (140-400); RED BLOOD COUNT 4.58 x10^6/uL (3.50-5.40); RED CELL DISTRIBUTION WIDTH 15.6 % (11.5-14.5); WHITE BLOOD COUNT 11.6 x10^3/uL (4.0-11.0)
[2017-04-21 14:37] LABS: ANION GAP 10 (6-14); BLOOD UREA NITROGEN 8 mg/dL (7-20); CARBON DIOXIDE 30 mmol/L (21-32); CHLORIDE 98 mmol/L (98-107); CREATININE 0.8 mg/dL (0.6-1.0); GLUCOSE 104 mg/dL (70-99); POTASSIUM 3.6 mmol/L (3.5-5.1); SODIUM 138 mmol/L (136-145)
[2017-04-21 14:43] LABS: ALBUMIN 3.6 g/dL (3.4-5.0); ALK PHOS 86 U/L (46-116); ALT (SGPT) 42 U/L (14-59); AST (SGOT) 32 U/L (15-37); DIRECT BILIRUBIN 0.1 mg/dL (0.0-0.2); LIPASE 68 U/L (73-393); TOTAL BILIRUBIN 0.3 mg/dL (0.2-1.0); TOTAL PROTEIN 8.1 g/dL (6.4-8.2)
[2017-04-21 14:46] LABS: BILIRUBIN,URINE NEGATIVE (NEG); CLARITY,URINE CLEAR; COLOR,URINE YELLOW; GLUCOSE,URINE NEGATIVE (NEG); NITRITE,URINE NEGATIVE (NEG); PH,URINE 7.5; PROTEIN,URINE NEGATIVE (NEG-TRACE); UROBILINOGEN,URINE 0.2 mg/dL (0.2 mg/dL)
[2017-04-21 14:59] LABS: RBC,URINE >40 /HPF (0-2)
[2017-04-21 15:00] LABS: BACTERIA,URINE 0 /HPF (0-FEW); SQUAMOUS EPITHELIAL CELL,UR MOD /LPF
[2017-04-21] MEDS ORDERED: HYDROmorphone 2 MG/ML VIAL IV ×2 (16:00)
[2017-04-21] MEDS: HYDROmorphone 2 MG/ML VIAL IV ×2 (16:12)
[2017-04-23 15:20] LABS: URINE HCG POC HCG NEGATIVE (Negative)
== END 2017-04-21 16:38 | disposition home or self-care (01) ==
LOC: ER 13:04
DX: R10.32 Left lower quadrant pain (principal); N80.9 Endometriosis, unspecified; E28.2 Polycystic ovarian syndrome; Z87.442 Personal history of urinary calculi; Z90.49 Acquired absence of other specified parts of digestive tract; Z88.5 Allergy status to narcotic agent; Z88.4 Allergy status to anesthetic agent; Z88.6 Allergy status to analgesic agent; Z88.8 Allergy status to other drugs, medicaments and biological substances
CPT/HCPCS: 36415; 80048; 80076; 81001; 81025; 83690; 85025; 87086; 96374; 99284-25; J1170

== ENCOUNTER 2017-04-27 10:58 | Emergency (ER) | payer SELFPAY ==
[2017-04-27 11:43] LABS: URINE HCG POC HCG NEGATIVE (Negative)
[2017-04-27 11:51] LABS: BILIRUBIN,URINE NEGATIVE (NEG); CLARITY,URINE CLEAR; COLOR,URINE YELLOW; GLUCOSE,URINE NEGATIVE (NEG); NITRITE,URINE NEGATIVE (NEG); PROTEIN,URINE NEGATIVE (NEG-TRACE); UROBILINOGEN,URINE 0.2 mg/dL (0.2 mg/dL)
[2017-04-27 12:02] LABS: BACTERIA,URINE FEW /HPF (0-FEW); RBC,URINE RARE /HPF (0-2); SQUAMOUS EPITHELIAL CELL,UR FEW /LPF; WBC,URINE RARE /HPF (0-4)
== END 2017-04-27 12:08 | disposition left against medical advice (07) ==
LOC: ER 10:58
DX: R10.32 Left lower quadrant pain (principal); F32.9 Major depressive disorder, single episode, unspecified; E28.2 Polycystic ovarian syndrome; E66.01 Morbid (severe) obesity due to excess calories; Z68.45 Body mass index [BMI] 70 or greater, adult; Z87.442 Personal history of urinary calculi; Z90.49 Acquired absence of other specified parts of digestive tract; Z88.5 Allergy status to narcotic agent; Z88.4 Allergy status to anesthetic agent; Z88.6 Allergy status to analgesic agent; Z88.8 Allergy status to other drugs, medicaments and biological substances
CPT/HCPCS: 81001; 81025; 99283

== ENCOUNTER 2017-05-07 15:36 | Emergency (ER) | payer SELFPAY | END 2017-05-07 16:15 | disposition left against medical advice (07) | LOC: ER 15:36 | DX: G89.29 Other chronic pain (principal); R10.32 Left lower quadrant pain; E66.01 Morbid (severe) obesity due to excess calories; Z88.6 Allergy status to analgesic agent; Z88.5 Allergy status to narcotic agent; Z88.8 Allergy status to other drugs, medicaments and biological substances; Z90.49 Acquired absence of other specified parts of digestive tract | CPT/HCPCS: 99281 ==

== ENCOUNTER 2017-05-29 10:53 | Emergency (ER) | payer SELFPAY ==
[2017-05-29] MEDS ORDERED: ONDANSETRON PF 4 MG/2 ML VIAL. (11:16)
[2017-05-29 11:35] LABS: URINE HCG POC HCG NEGATIVE (Negative)
[2017-05-29 12:09] LABS: BILIRUBIN,URINE NEGATIVE (NEG); CLARITY,URINE CLEAR; COLOR,URINE YELLOW; GLUCOSE,URINE NEGATIVE (NEG); NITRITE,URINE NEGATIVE (NEG); PH,URINE 7.5; PROTEIN,URINE NEGATIVE (NEG-TRACE); UROBILINOGEN,URINE 0.2 mg/dL (0.2 mg/dL)
[2017-05-29] MEDS: ONDANSETRON PF 4 MG/2 ML VIAL. IV ×2 (12:22→14:12)
[2017-05-29] MEDS: IV NORMAL SALINE 1000ML BAG 1,000 ML IV (12:23)
[2017-05-29] MEDS: MORPHINE SULFATE 4 MG/ML DISP.SYRIN. IV/SQ ×3 (12:26→14:14)
[2017-05-29 12:34] LABS: ADD MAN DIFF? NO
[2017-05-29 12:36] LABS: BACTERIA,URINE 0 /HPF (0-FEW); SQUAMOUS EPITHELIAL CELL,UR FEW /LPF
[2017-05-29 12:37] LABS: BASO # 0.2 x10^3/uL (0.0-0.2); BASO % 2 % (0-3); EOS # 0.4 x10^3/uL (0.0-0.7); EOS % 4 % (0-3); HEMOGLOBIN 12.8 g/dL (12.0-15.5); LYMPH # 1.9 x10^3/uL (1.0-4.8); LYMPH % 18 % (24-48); MEAN CORPUSCULAR HEMOGLOBIN 28 pg (25-35); MEAN CORPUSCULAR HGB CONC 33 g/dL (31-37); MEAN CORPUSCULAR VOLUME 86 fL (79-100); MONO # 0.5 x10^3/uL (0.0-1.1); MONO % 4 % (0-9); NEUT # 7.8 x10^3uL (1.8-7.7); NEUT % 73 % (31-73); PLATELET COUNT 316 x10^3/uL (140-400); RED BLOOD COUNT 4.55 x10^6/uL (3.50-5.40); WHITE BLOOD COUNT 10.7 x10^3/uL (4.0-11.0)
[2017-05-29 12:45] LABS: ANION GAP 4 (6-14); BLOOD UREA NITROGEN 11 mg/dL (7-20); BUN/CREATININE RATIO 16 (6-20); CALCIUM 9.4 mg/dL (8.5-10.1); CARBON DIOXIDE 29 mmol/L (21-32); CHLORIDE 103 mmol/L (98-107); CREATININE 0.7 mg/dL (0.6-1.0); GFR 100.4; GLUCOSE 125 mg/dL (70-99); POTASSIUM 3.9 mmol/L (3.5-5.1); SODIUM 136 mmol/L (136-145)
[2017-05-29 12:51] LABS: ALBUMIN 3.2 g/dL (3.4-5.0); ALBUMIN/GLOBULIN RATIO 0.7 (1.0-1.7); ALK PHOS 88 U/L (46-116); ALT (SGPT) 34 U/L (14-59); AST (SGOT) 21 U/L (15-37); TOTAL BILIRUBIN 0.1 mg/dL (0.2-1.0); TOTAL PROTEIN 7.7 g/dL (6.4-8.2)
== END 2017-05-29 14:22 | disposition home or self-care (01) ==
LOC: ER 10:53
DX: R10.2 Pelvic and perineal pain (principal); R11.2 Nausea with vomiting, unspecified; R00.0 Tachycardia, unspecified; F32.9 Major depressive disorder, single episode, unspecified; E28.2 Polycystic ovarian syndrome; E66.01 Morbid (severe) obesity due to excess calories; Z68.45 Body mass index [BMI] 70 or greater, adult; Z90.49 Acquired absence of other specified parts of digestive tract; Z88.5 Allergy status to narcotic agent; Z88.8 Allergy status to other drugs, medicaments and biological substances; Z88.4 Allergy status to anesthetic agent; Z87.442 Personal history of urinary calculi
CPT/HCPCS: 36415; 76830; 76856; 80053; 81001; 81025; 85025; 96361; 96374; 96375; 96376; 99285-25; J2270; J2405; J7030

== ENCOUNTER 2017-06-01 01:51 | Emergency (ER) | payer SELFPAY, BC ==
[2017-06-01 02:20] LABS: URINE HCG POC HCG NEGATIVE (Negative)
[2017-06-01 02:27] LABS: ADD MAN DIFF? NO
[2017-06-01 02:30] LABS: BASO # 0.1 x10^3/uL (0.0-0.2); BASO % 1 % (0-3); BILIRUBIN,URINE NEGATIVE (NEG); CLARITY,URINE CLEAR; COLOR,URINE YELLOW; EOS # 0.5 x10^3/uL (0.0-0.7); EOS % 4 % (0-3); GLUCOSE,URINE NEGATIVE (NEG); HEMOGLOBIN 12.8 g/dL (12.0-15.5); LYMPH # 2.8 x10^3/uL (1.0-4.8); LYMPH % 23 % (24-48); MEAN CORPUSCULAR HEMOGLOBIN 28 pg (25-35); MEAN CORPUSCULAR HGB CONC 33 g/dL (31-37); MEAN CORPUSCULAR VOLUME 86 fL (79-100); MONO # 0.5 x10^3/uL (0.0-1.1); MONO % 4 % (0-9); NEUT # 8.6 x10^3uL (1.8-7.7); NEUT % 69 % (31-73); NITRITE,URINE NEGATIVE (NEG); PLATELET COUNT 329 x10^3/uL (140-400); PROTEIN,URINE NEGATIVE (NEG-TRACE); RED BLOOD COUNT 4.56 x10^6/uL (3.50-5.40); RED CELL DISTRIBUTION WIDTH 16.1 % (11.5-14.5); UROBILINOGEN,URINE 0.2 mg/dL (0.2 mg/dL); WHITE BLOOD COUNT 12.6 x10^3/uL (4.0-11.0)
[2017-06-01 02:38] LABS: ANION GAP 9 (6-14); BLOOD UREA NITROGEN 9 mg/dL (7-20); BUN/CREATININE RATIO 11 (6-20); CALCIUM 9.3 mg/dL (8.5-10.1); CARBON DIOXIDE 30 mmol/L (21-32); CHLORIDE 101 mmol/L (98-107); CREATININE 0.8 mg/dL (0.6-1.0); GLUCOSE 130 mg/dL (70-99); POTASSIUM 3.6 mmol/L (3.5-5.1); SODIUM 140 mmol/L (136-145)
[2017-06-01 02:39] LABS: BACTERIA,URINE FEW /HPF (0-FEW); RBC,URINE 0 /HPF (0-2); SQUAMOUS EPITHELIAL CELL,UR MOD /LPF; WBC,URINE OCC /HPF (0-4)
[2017-06-01 02:44] LABS: ALBUMIN 3.2 g/dL (3.4-5.0); ALBUMIN/GLOBULIN RATIO 0.7 (1.0-1.7); ALK PHOS 84 U/L (46-116); ALT (SGPT) 35 U/L (14-59); AST (SGOT) 20 U/L (15-37); LIPASE 75 U/L (73-393); TOTAL BILIRUBIN 0.2 mg/dL (0.2-1.0); TOTAL PROTEIN 7.6 g/dL (6.4-8.2)
[2017-06-01] MEDS ORDERED: MORPHINE SULFATE 4 MG/ML DISP.SYRIN. (03:06)
[2017-06-01] MEDS: MORPHINE SULFATE 2 MG/ML DISP.SYRIN. IV (03:10)
[2017-06-01] MEDS ORDERED: ONDANSETRON PF 4 MG/2 ML VIAL. (04:18)
[2017-06-01] MEDS: ONDANSETRON PF 4 MG/2 ML VIAL. IV (04:21)
== END 2017-06-01 05:12 | disposition home or self-care (01) ==
LOC: ER 01:51
DX: R10.2 Pelvic and perineal pain (principal); F41.9 Anxiety disorder, unspecified; F32.9 Major depressive disorder, single episode, unspecified; E28.2 Polycystic ovarian syndrome; E66.01 Morbid (severe) obesity due to excess calories; G89.29 Other chronic pain; Z68.44 Body mass index [BMI] 60.0-69.9, adult; Z90.49 Acquired absence of other specified parts of digestive tract; Z87.442 Personal history of urinary calculi; Z88.5 Allergy status to narcotic agent; Z88.8 Allergy status to other drugs, medicaments and biological substances; Z88.4 Allergy status to anesthetic agent
CPT/HCPCS: 36415; 76830; 76856; 80053; 81001; 81025; 83690; 85025; 96374; 96375; 99285-25; J2060; J2270; J2405

== ENCOUNTER 2017-06-04 05:39 | Emergency (ER) | payer SELFPAY ==
[2017-06-04] MEDS ORDERED: MORPHINE SULFATE 2 MG/ML DISP.SYRIN. IV/SQ (06:00)
[2017-06-04 06:06] LABS: URINE HCG POC HCG NEGATIVE (Negative)
[2017-06-04 06:17] LABS: BILIRUBIN,URINE NEGATIVE (NEG); CLARITY,URINE CLEAR; COLOR,URINE YELLOW; GLUCOSE,URINE NEGATIVE (NEG); NITRITE,URINE NEGATIVE (NEG); PH,URINE 5.5; PROTEIN,URINE NEGATIVE (NEG-TRACE); UROBILINOGEN,URINE 0.2 mg/dL (0.2 mg/dL)
[2017-06-04] MEDS: ONDANSETRON PF 4 MG/2 ML VIAL. IV (06:18)
[2017-06-04 06:19] LABS: ADD MAN DIFF? NO
[2017-06-04] MEDS: MORPHINE SULFATE 4 MG/ML DISP.SYRIN. IV/SQ ×2 (06:19→06:53)
[2017-06-04 06:22] LABS: BASO # 0.1 x10^3/uL (0.0-0.2); BASO % 1 % (0-3); EOS # 0.4 x10^3/uL (0.0-0.7); EOS % 4 % (0-3); HEMOGLOBIN 12.4 g/dL (12.0-15.5); LYMPH # 2.5 x10^3/uL (1.0-4.8); LYMPH % 23 % (24-48); MEAN CORPUSCULAR HEMOGLOBIN 28 pg (25-35); MEAN CORPUSCULAR HGB CONC 33 g/dL (31-37); MEAN CORPUSCULAR VOLUME 85 fL (79-100); MONO # 0.4 x10^3/uL (0.0-1.1); MONO % 3 % (0-9); NEUT # 7.2 x10^3uL (1.8-7.7); NEUT % 68 % (31-73); PLATELET COUNT 321 x10^3/uL (140-400); RED BLOOD COUNT 4.45 x10^6/uL (3.50-5.40); RED CELL DISTRIBUTION WIDTH 16.3 % (11.5-14.5); WHITE BLOOD COUNT 10.6 x10^3/uL (4.0-11.0)
[2017-06-04] MEDS: IV NORMAL SALINE 1000ML BAG 1,000 ML IV (06:23)
[2017-06-04 06:36] LABS: ANION GAP 9 (6-14); BACTERIA,URINE FEW /HPF (0-FEW); BLOOD UREA NITROGEN 10 mg/dL (7-20); BUN/CREATININE RATIO 13 (6-20); CALCIUM 8.6 mg/dL (8.5-10.1); CARBON DIOXIDE 29 mmol/L (21-32); CHLORIDE 103 mmol/L (98-107); CREATININE 0.8 mg/dL (0.6-1.0); GLUCOSE 123 mg/dL (70-99); POTASSIUM 3.8 mmol/L (3.5-5.1); RBC,URINE >40 /HPF (0-2); SODIUM 141 mmol/L (136-145); SQUAMOUS EPITHELIAL CELL,UR MOD /LPF; WBC,URINE OCC /HPF (0-4)
[2017-06-04 06:42] LABS: ALBUMIN 3.1 g/dL (3.4-5.0); ALBUMIN/GLOBULIN RATIO 0.7 (1.0-1.7); ALK PHOS 87 U/L (46-116); ALT (SGPT) 36 U/L (14-59); AST (SGOT) 26 U/L (15-37); LIPASE 101 U/L (73-393); TOTAL BILIRUBIN 0.2 mg/dL (0.2-1.0); TOTAL PROTEIN 7.3 g/dL (6.4-8.2)
== END 2017-06-04 07:50 | disposition home or self-care (01) ==
LOC: ER 05:39
DX: R10.12 Left upper quadrant pain (principal); R11.2 Nausea with vomiting, unspecified; R10.32 Left lower quadrant pain; G89.29 Other chronic pain; R10.2 Pelvic and perineal pain; F41.9 Anxiety disorder, unspecified; F32.9 Major depressive disorder, single episode, unspecified; E28.2 Polycystic ovarian syndrome; F17.210 Nicotine dependence, cigarettes, uncomplicated; E66.01 Morbid (severe) obesity due to excess calories; Z90.49 Acquired absence of other specified parts of digestive tract; Z68.45 Body mass index [BMI] 70 or greater, adult; Z87.442 Personal history of urinary calculi; Z88.5 Allergy status to narcotic agent; Z88.4 Allergy status to anesthetic agent; Z88.8 Allergy status to other drugs, medicaments and biological substances
CPT/HCPCS: 36415; 80053; 81001; 81025; 83690; 85025; 96361; 96374; 96375; 96376; 99284-25; J2270; J2405; J7030

== ENCOUNTER 2017-06-13 17:11 | Emergency (ER) | payer SELFPAY ==
[2017-06-13 18:30] LABS: ADD MAN DIFF? NO
[2017-06-13 18:32] LABS: URINE HCG POC HCG NEGATIVE (Negative)
[2017-06-13] MEDS: ONDANSETRON PF 4 MG/2 ML VIAL. IV ×2 (18:32→20:48)
[2017-06-13 18:33] LABS: BASO % 0 % (0-3); EOS # 0.3 x10^3/uL (0.0-0.7); EOS % 3 % (0-3); HEMATOCRIT 37.8 % (36.0-47.0); HEMOGLOBIN 12.3 g/dL (12.0-15.5); LYMPH # 2.4 x10^3/uL (1.0-4.8); LYMPH % 22 % (24-48); MEAN CORPUSCULAR HEMOGLOBIN 28 pg (25-35); MEAN CORPUSCULAR HGB CONC 33 g/dL (31-37); MEAN CORPUSCULAR VOLUME 85 fL (79-100); MONO # 0.5 x10^3/uL (0.0-1.1); MONO % 4 % (0-9); NEUT % 71 % (31-73); PLATELET COUNT 310 x10^3/uL (140-400); RED BLOOD COUNT 4.45 x10^6/uL (3.50-5.40); RED CELL DISTRIBUTION WIDTH 16.3 % (11.5-14.5); WHITE BLOOD COUNT 11.2 x10^3/uL (4.0-11.0)
[2017-06-13] MEDS: IV NORMAL SALINE 1000ML BAG 1,000 ML IV (18:33)
[2017-06-13] MEDS: MORPHINE SULFATE 4 MG/ML DISP.SYRIN. IV/SQ ×4 (18:33→20:49)
[2017-06-13 18:35] LABS: BILIRUBIN,URINE NEGATIVE (NEG); CLARITY,URINE CLEAR; COLOR,URINE AMBER; GLUCOSE,URINE NEGATIVE (NEG); NITRITE,URINE NEGATIVE (NEG); PROTEIN,URINE NEGATIVE (NEG-TRACE); UROBILINOGEN,URINE 0.2 mg/dL (0.2 mg/dL)
[2017-06-13 18:40] LABS: ANION GAP 11 (6-14); BLOOD UREA NITROGEN 12 mg/dL (7-20); CALCIUM 8.9 mg/dL (8.5-10.1); CARBON DIOXIDE 27 mmol/L (21-32); CHLORIDE 102 mmol/L (98-107); CREATININE 0.8 mg/dL (0.6-1.0); GLUCOSE 126 mg/dL (70-99); POTASSIUM 3.3 mmol/L (3.5-5.1); SODIUM 140 mmol/L (136-145)
[2017-06-13 18:41] LABS: BARBITURATES NEG (NEG); BENZODIAZEPINES NEG (NEG); CANNABINOIDS NEG (NEG); COCAINE NEG (NEG); METHADONE NEG (NEG); OPIATES POS (NEG); PHENCYCLIDINE NEG (NEG)
[2017-06-13 18:43] LABS: AMPHETAMINE/METHAMPHETAMINE NEG (NEG); BACTERIA,URINE FEW /HPF (0-FEW); ETHANOL, URINE NEG (NEG); SQUAMOUS EPITHELIAL CELL,UR MOD /LPF
[2017-06-13 18:46] LABS: ALBUMIN 3.2 g/dL (3.4-5.0); ALK PHOS 74 U/L (46-116); ALT (SGPT) 45 U/L (14-59); AST (SGOT) 35 U/L (15-37); DIRECT BILIRUBIN < 0.1 mg/dL (0.0-0.2); TOTAL BILIRUBIN 0.3 mg/dL (0.2-1.0); TOTAL PROTEIN 7.5 g/dL (6.4-8.2)
== END 2017-06-13 20:51 | disposition home or self-care (01) ==
LOC: ER 17:11
DX: R10.30 Lower abdominal pain, unspecified (principal); F41.9 Anxiety disorder, unspecified; F32.9 Major depressive disorder, single episode, unspecified; E28.2 Polycystic ovarian syndrome; E66.01 Morbid (severe) obesity due to excess calories; Z68.45 Body mass index [BMI] 70 or greater, adult; Z87.442 Personal history of urinary calculi; Z90.49 Acquired absence of other specified parts of digestive tract; Z88.5 Allergy status to narcotic agent; Z88.8 Allergy status to other drugs, medicaments and biological substances; Z88.4 Allergy status to anesthetic agent
CPT/HCPCS: 36415; 76830; 80048; 80076; 80307; 81001; 81025; 85025; 96361; 96374; 96375; 96376; 99285-25; J2270; J2405; J7030

== ENCOUNTER 2017-06-29 19:37 | Emergency (ER) | payer SELFPAY ==
[2017-06-29] MEDS: IV NORMAL SALINE 1000ML BAG 1,000 ML IV (20:39)
[2017-06-29] MEDS: ONDANSETRON PF 4 MG/2 ML VIAL. IV (20:40)
[2017-06-29] MEDS: MORPHINE SULFATE 4 MG/ML DISP.SYRIN. IV ×2 (20:40→22:20)
[2017-06-29 20:42] LABS: BILIRUBIN,URINE NEGATIVE (NEG); CLARITY,URINE CLEAR; COLOR,URINE YELLOW; GLUCOSE,URINE NEGATIVE (NEG); NITRITE,URINE NEGATIVE (NEG); PROTEIN,URINE NEGATIVE (NEG-TRACE); UROBILINOGEN,URINE 0.2 mg/dL (0.2 mg/dL)
[2017-06-29 20:43] LABS: URINE HCG POC HCG NEGATIVE (Negative)
[2017-06-29 20:50] LABS: BACTERIA,URINE 0 /HPF (0-FEW); RBC,URINE TNTC /HPF (0-2); SQUAMOUS EPITHELIAL CELL,UR MANY /LPF; WBC,URINE 0 /HPF (0-4)
[2017-06-29 20:53] LABS: ADD MAN DIFF? NO
[2017-06-29 20:56] LABS: BASO # 0.1 x10^3/uL (0.0-0.2); BASO % 1 % (0-3); EOS # 0.3 x10^3/uL (0.0-0.7); EOS % 4 % (0-3); HEMATOCRIT 36.3 % (36.0-47.0); HEMOGLOBIN 11.8 g/dL (12.0-15.5); LYMPH # 2.1 x10^3/uL (1.0-4.8); LYMPH % 30 % (24-48); MEAN CORPUSCULAR HEMOGLOBIN 28 pg (25-35); MEAN CORPUSCULAR HGB CONC 32 g/dL (31-37); MEAN CORPUSCULAR VOLUME 86 fL (79-100); MONO # 0.5 x10^3/uL (0.0-1.1); MONO % 7 % (0-9); NEUT # 4.1 x10^3uL (1.8-7.7); NEUT % 58 % (31-73); PLATELET COUNT 298 x10^3/uL (140-400); RED BLOOD COUNT 4.24 x10^6/uL (3.50-5.40); RED CELL DISTRIBUTION WIDTH 15.7 % (11.5-14.5); WHITE BLOOD COUNT 7.1 x10^3/uL (4.0-11.0)
[2017-06-29 21:04] LABS: ANION GAP 9 (6-14); BLOOD UREA NITROGEN 11 mg/dL (7-20); BUN/CREATININE RATIO 16 (6-20); CALCIUM 8.2 mg/dL (8.5-10.1); CARBON DIOXIDE 29 mmol/L (21-32); CHLORIDE 105 mmol/L (98-107); CREATININE 0.7 mg/dL (0.6-1.0); GFR 100.4; GLUCOSE 136 mg/dL (70-99); POTASSIUM 3.6 mmol/L (3.5-5.1); SODIUM 143 mmol/L (136-145)
[2017-06-29 21:09] LABS: ALBUMIN/GLOBULIN RATIO 0.7 (1.0-1.7); ALK PHOS 77 U/L (46-116); ALT (SGPT) 38 U/L (14-59); AST (SGOT) 21 U/L (15-37); LIPASE 94 U/L (73-393); TOTAL BILIRUBIN 0.2 mg/dL (0.2-1.0); TOTAL PROTEIN 7.1 g/dL (6.4-8.2)
[2017-06-29] MEDS ORDERED: MORPHINE SULFATE 4 MG/ML DISP.SYRIN. IV (23:00)
== END 2017-06-29 22:42 | disposition home or self-care (01) ==
LOC: ER 19:37
DX: R10.9 Unspecified abdominal pain (principal); R31.9 Hematuria, unspecified; R11.2 Nausea with vomiting, unspecified; R00.0 Tachycardia, unspecified; R03.0 Elevated blood-pressure reading, without diagnosis of hypertension; F41.9 Anxiety disorder, unspecified; F32.9 Major depressive disorder, single episode, unspecified; E28.2 Polycystic ovarian syndrome; E66.01 Morbid (severe) obesity due to excess calories; Z68.45 Body mass index [BMI] 70 or greater, adult; Z87.442 Personal history of urinary calculi; Z90.49 Acquired absence of other specified parts of digestive tract; Z88.5 Allergy status to narcotic agent; Z88.8 Allergy status to other drugs, medicaments and biological substances; Z88.4 Allergy status to anesthetic agent; Z88.6 Allergy status to analgesic agent
CPT/HCPCS: 36415; 74176; 76856; 80053; 81001; 81025; 83690; 85025; 96361; 96374; 96375; 96376; 99285-25; J2270; J2405; J7030

== ENCOUNTER 2017-08-01 23:05 | Emergency (ER) | payer SELFPAY ==
[2017-08-01 23:28] LABS: URINE HCG POC HCG NEGATIVE (Negative)
[2017-08-01 23:40] LABS: BILIRUBIN,URINE SMALL (NEG); CLARITY,URINE CLEAR; COLOR,URINE AMBER; GLUCOSE,URINE NEGATIVE (NEG); NITRITE,URINE NEGATIVE (NEG); PROTEIN,URINE 30 mg/dL (NEG-TRACE)
[2017-08-01 23:47] LABS: RBC,URINE 0 /HPF (0-2)
[2017-08-01 23:48] LABS: BACTERIA,URINE FEW /HPF (0-FEW); SQUAMOUS EPITHELIAL CELL,UR MOD /LPF
[2017-08-01] MEDS: MORPHINE SULFATE 10 MG/ML VIAL. IM (23:49)
[2017-08-01] MEDS: ONDANSETRON ODT 4 MG TAB.RAPDIS. PO (23:54)
[2017-08-02 00:24] LABS: ADD MAN DIFF? NO; BASO # 0.1 x10^3/uL (0.0-0.2); BASO % 1 % (0-3); EOS # 0.2 x10^3/uL (0.0-0.7); EOS % 2 % (0-3); HEMATOCRIT 37.6 % (36.0-47.0); HEMOGLOBIN 12.5 g/dL (12.0-15.5); LYMPH # 2.8 x10^3/uL (1.0-4.8); LYMPH % 27 % (24-48); MEAN CORPUSCULAR HEMOGLOBIN 28 pg (25-35); MEAN CORPUSCULAR HGB CONC 33 g/dL (31-37); MEAN CORPUSCULAR VOLUME 83 fL (79-100); MONO # 0.4 x10^3/uL (0.0-1.1); MONO % 4 % (0-9); NEUT # 6.8 x10^3uL (1.8-7.7); NEUT % 65 % (31-73); PLATELET COUNT 322 x10^3/uL (140-400); RED BLOOD COUNT 4.52 x10^6/uL (3.50-5.40); RED CELL DISTRIBUTION WIDTH 15.5 % (11.5-14.5); WHITE BLOOD COUNT 10.4 x10^3/uL (4.0-11.0)
[2017-08-02 00:42] LABS: ANION GAP 10 (6-14); BLOOD UREA NITROGEN 12 mg/dL (7-20); BUN/CREATININE RATIO 13 (6-20); CALCIUM 8.8 mg/dL (8.5-10.1); CARBON DIOXIDE 28 mmol/L (21-32); CHLORIDE 102 mmol/L (98-107); CREATININE 0.9 mg/dL (0.6-1.0); GFR 75.1; GLUCOSE 98 mg/dL (70-99); POTASSIUM 3.7 mmol/L (3.5-5.1); SODIUM 140 mmol/L (136-145)
[2017-08-02] MEDS ORDERED: ONDANSETRON ODT 4 MG TAB.RAPDIS. PO (00:45)
[2017-08-02 00:47] LABS: ALBUMIN 3.2 g/dL (3.4-5.0); ALBUMIN/GLOBULIN RATIO 0.8 (1.0-1.7); ALK PHOS 72 U/L (46-116); ALT (SGPT) 38 U/L (14-59); AST (SGOT) 21 U/L (15-37); LIPASE 76 U/L (73-393); TOTAL BILIRUBIN 0.3 mg/dL (0.2-1.0); TOTAL PROTEIN 7.2 g/dL (6.4-8.2)
[2017-08-02] MEDS: HYDROcodone/APAP 5/325MG 1 TAB TABLET PO (00:49)
== END 2017-08-02 00:51 | disposition home or self-care (01) ==
LOC: ER 23:05
DX: N93.8 Other specified abnormal uterine and vaginal bleeding (principal); R10.2 Pelvic and perineal pain; E28.2 Polycystic ovarian syndrome; Z87.442 Personal history of urinary calculi; E66.01 Morbid (severe) obesity due to excess calories; Z88.5 Allergy status to narcotic agent; Z88.6 Allergy status to analgesic agent; Z88.8 Allergy status to other drugs, medicaments and biological substances; Z88.4 Allergy status to anesthetic agent
CPT/HCPCS: 36415; 76830; 76856; 80053; 81001; 81025; 83690; 85025; 87086; 96372; 99285; J2270; Q0111; Q0162

== ENCOUNTER 2017-08-03 18:15 | Emergency (ER) | payer SELFPAY ==
[2017-08-03 18:36] LABS: URINE HCG POC HCG NEGATIVE (Negative)
[2017-08-03 18:38] LABS: BILIRUBIN,URINE SMALL (NEG); CLARITY,URINE CLOUDY; COLOR,URINE AMBER; GLUCOSE,URINE NEGATIVE (NEG); NITRITE,URINE NEGATIVE (NEG); PH,URINE 5.5; PROTEIN,URINE 30 mg/dL (NEG-TRACE)
[2017-08-03 18:42] LABS: NEG OBC UR NEG; POS OBC UR POS; U PREG PATIENT NEGATIVE (NEG)
[2017-08-03 18:45] LABS: AMORPHOUS SEDIMENT,UR PRESENT /HPF; BACTERIA,URINE MOD /HPF (0-FEW); RBC,URINE TNTC /HPF (0-2); SQUAMOUS EPITHELIAL CELL,UR MOD /LPF
[2017-08-03 19:24] LABS: ADD MAN DIFF? NO
[2017-08-03] MEDS: IV NORMAL SALINE 1000ML BAG 1,000 ML IV (19:26)
[2017-08-03] MEDS: ONDANSETRON PF 4 MG/2 ML VIAL. IV (19:28)
[2017-08-03] MEDS: MORPHINE SULFATE 10 MG/ML VIAL. IV ×2 (19:28→20:34)
[2017-08-03 19:31] LABS: BASO # 0.1 x10^3/uL (0.0-0.2); BASO % 1 % (0-3); EOS # 0.2 x10^3/uL (0.0-0.7); EOS % 2 % (0-3); HEMOGLOBIN 12.4 g/dL (12.0-15.5); LYMPH # 2.6 x10^3/uL (1.0-4.8); LYMPH % 21 % (24-48); MEAN CORPUSCULAR HEMOGLOBIN 27 pg (25-35); MEAN CORPUSCULAR HGB CONC 33 g/dL (31-37); MEAN CORPUSCULAR VOLUME 83 fL (79-100); MONO # 0.5 x10^3/uL (0.0-1.1); MONO % 4 % (0-9); NEUT # 9.1 x10^3uL (1.8-7.7); NEUT % 73 % (31-73); PLATELET COUNT 334 x10^3/uL (140-400); RED BLOOD COUNT 4.58 x10^6/uL (3.50-5.40); RED CELL DISTRIBUTION WIDTH 15.8 % (11.5-14.5); WHITE BLOOD COUNT 12.5 x10^3/uL (4.0-11.0)
[2017-08-03 19:36] LABS: ANION GAP 6 (6-14); BLOOD UREA NITROGEN 13 mg/dL (7-20); CALCIUM 8.7 mg/dL (8.5-10.1); CARBON DIOXIDE 31 mmol/L (21-32); CHLORIDE 102 mmol/L (98-107); CREATININE 1.1 mg/dL (0.6-1.0); GFR 59.6; GLUCOSE 123 mg/dL (70-99); POTASSIUM 3.6 mmol/L (3.5-5.1); SODIUM 139 mmol/L (136-145)
== END 2017-08-03 21:08 | disposition home or self-care (01) ==
LOC: ER 18:15
DX: N39.0 Urinary tract infection, site not specified (principal); E28.2 Polycystic ovarian syndrome; E66.01 Morbid (severe) obesity due to excess calories; Z87.442 Personal history of urinary calculi; Z94.9 Transplanted organ and tissue status, unspecified; Z68.45 Body mass index [BMI] 70 or greater, adult; Z88.5 Allergy status to narcotic agent; Z88.6 Allergy status to analgesic agent; Z88.8 Allergy status to other drugs, medicaments and biological substances
CPT/HCPCS: 36415; 80048; 81001; 81025; 85025; 87086; 96365; 96375; 96376; 99285-25; J0690; J2270; J2405; J7030

== ENCOUNTER 2017-08-22 10:39 | Emergency (ER) | payer SELFPAY ==
[2017-08-22] MEDS: TAMSULOSIN 0.4 MG CAP.ER.24H. PO (11:08)
[2017-08-22 11:15] LABS: ADD MAN DIFF? NO
[2017-08-22] MEDS: IV NORMAL SALINE 1000ML BAG 1,000 ML IV (11:15)
[2017-08-22] MEDS: MORPHINE SULFATE 10 MG/ML VIAL. IV ×2 (11:15→12:45)
[2017-08-22] MEDS: ONDANSETRON PF 4 MG/2 ML VIAL. IV ×2 (11:15→12:45)
[2017-08-22 11:16] LABS: URINE HCG POC HCG NEGATIVE (Negative)
[2017-08-22 11:19] LABS: BASO # 0.1 x10^3/uL (0.0-0.2); BASO % 1 % (0-3); EOS # 0.2 x10^3/uL (0.0-0.7); EOS % 2 % (0-3); HEMATOCRIT 40.7 % (36.0-47.0); HEMOGLOBIN 13.5 g/dL (12.0-15.5); LYMPH % 15 % (24-48); MEAN CORPUSCULAR HEMOGLOBIN 28 pg (25-35); MEAN CORPUSCULAR HGB CONC 33 g/dL (31-37); MEAN CORPUSCULAR VOLUME 83 fL (79-100); MONO # 0.4 x10^3/uL (0.0-1.1); MONO % 3 % (0-9); NEUT # 10.8 x10^3uL (1.8-7.7); NEUT % 80 % (31-73); PLATELET COUNT 334 x10^3/uL (140-400); RED BLOOD COUNT 4.89 x10^6/uL (3.50-5.40); RED CELL DISTRIBUTION WIDTH 16.8 % (11.5-14.5); WHITE BLOOD COUNT 13.6 x10^3/uL (4.0-11.0)
[2017-08-22 11:34] LABS: BARBITURATES NEG (NEG); BENZODIAZEPINES NEG (NEG); CANNABINOIDS NEG (NEG); COCAINE NEG (NEG); METHADONE NEG (NEG); OPIATES NEG (NEG); PHENCYCLIDINE NEG (NEG)
[2017-08-22 11:45] LABS: AMPHETAMINE/METHAMPHETAMINE NEG (NEG); ETHANOL, URINE NEG (NEG)
[2017-08-22 12:19] LABS: ANION GAP 8 (6-14); BLOOD UREA NITROGEN 6 mg/dL (7-20); BUN/CREATININE RATIO 9 (6-20); CALCIUM 8.2 mg/dL (8.5-10.1); CARBON DIOXIDE 29 mmol/L (21-32); CHLORIDE 105 mmol/L (98-107); CREATININE 0.7 mg/dL (0.6-1.0); GFR 100.4; GLUCOSE 107 mg/dL (70-99); POTASSIUM 3.7 mmol/L (3.5-5.1); SODIUM 142 mmol/L (136-145)
[2017-08-22 12:20] LABS: ETHANOL < 10 mg/dL (0-10)
[2017-08-22 12:25] LABS: ALBUMIN 3.2 g/dL (3.4-5.0); ALBUMIN/GLOBULIN RATIO 0.9 (1.0-1.7); ALK PHOS 78 U/L (46-116); ALT (SGPT) 38 U/L (14-59); AST (SGOT) 29 U/L (15-37); LIPASE 59 U/L (73-393); TOTAL BILIRUBIN 0.4 mg/dL (0.2-1.0); TOTAL PROTEIN 6.9 g/dL (6.4-8.2)
[2017-08-22] MEDS: MORPHINE SULFATE 2 MG/ML DISP.SYRIN. IV (13:30)
[2017-08-22 13:33] LABS: BILIRUBIN,URINE NEGATIVE (NEG); GLUCOSE,URINE NEGATIVE (NEG); NITRITE,URINE NEGATIVE (NEG); PROTEIN,URINE 30 mg/dL (NEG-TRACE); UROBILINOGEN,URINE 0.2 mg/dL (0.2 mg/dL)
[2017-08-22 13:40] LABS: BACTERIA,URINE MODERATE /HPF (0-FEW); CLARITY,URINE BLOODY; COLOR,URINE RED; RBC,URINE TNTC /HPF (0-2); SQUAMOUS EPITHELIAL CELL,UR MANY /LPF
== END 2017-08-22 14:05 | disposition home or self-care (01) ==
LOC: ER 10:39
DX: R10.9 Unspecified abdominal pain (principal); R31.9 Hematuria, unspecified; R11.0 Nausea; N80.9 Endometriosis, unspecified; E66.01 Morbid (severe) obesity due to excess calories; Z68.44 Body mass index [BMI] 60.0-69.9, adult; Z90.49 Acquired absence of other specified parts of digestive tract; Z87.442 Personal history of urinary calculi; Z88.5 Allergy status to narcotic agent; Z88.8 Allergy status to other drugs, medicaments and biological substances
CPT/HCPCS: 36415; 80053; 80307; 81001; 81025; 83690; 85025; 87086; 96374; 96375; 96376; 99284; G0480; J2270; J2405; J7030

== ENCOUNTER 2017-08-23 11:48 | Emergency (ER) | payer SELFPAY | END 2017-08-23 13:11 | disposition home or self-care (01) | LOC: ER 11:48 | DX: G89.29 Other chronic pain (principal); R10.9 Unspecified abdominal pain; R11.2 Nausea with vomiting, unspecified; E66.01 Morbid (severe) obesity due to excess calories; Z68.45 Body mass index [BMI] 70 or greater, adult; Z87.442 Personal history of urinary calculi; Z90.49 Acquired absence of other specified parts of digestive tract; Z88.5 Allergy status to narcotic agent; Z88.8 Allergy status to other drugs, medicaments and biological substances | CPT/HCPCS: 99283 ==

== ENCOUNTER 2017-08-25 18:27 | Emergency (ER) | payer SELFPAY | END 2017-08-25 19:15 | disposition home or self-care (01) | LOC: ER 18:27 | DX: G89.29 Other chronic pain (principal); R10.2 Pelvic and perineal pain; Z76.5 Malingerer [conscious simulation]; E66.01 Morbid (severe) obesity due to excess calories; Z68.44 Body mass index [BMI] 60.0-69.9, adult; Z88.5 Allergy status to narcotic agent; Z90.49 Acquired absence of other specified parts of digestive tract; Z88.6 Allergy status to analgesic agent; Z88.8 Allergy status to other drugs, medicaments and biological substances | CPT/HCPCS: 99283 ==

== ENCOUNTER 2017-09-10 19:52 | Emergency (ER) | payer SELFPAY, BC ==
[2017-09-10 20:25] LABS: URINE HCG POC HCG NEGATIVE (Negative)
[2017-09-10 20:29] LABS: ADD MAN DIFF? NO
[2017-09-10] MEDS: ACETAMINOPHEN 500 MG TABLET PO (20:30)
[2017-09-10 20:31] LABS: BASO # 0.1 x10^3/uL (0.0-0.2); BASO % 1 % (0-3); BILIRUBIN,URINE NEGATIVE (NEG); CLARITY,URINE CLEAR; COLOR,URINE YELLOW; EOS # 0.2 x10^3/uL (0.0-0.7); EOS % 1 % (0-3); GLUCOSE,URINE NEGATIVE (NEG); HEMATOCRIT 40.9 % (36.0-47.0); LYMPH % 26 % (24-48); MEAN CORPUSCULAR HEMOGLOBIN 27 pg (25-35); MEAN CORPUSCULAR HGB CONC 32 g/dL (31-37); MEAN CORPUSCULAR VOLUME 84 fL (79-100); MONO # 0.7 x10^3/uL (0.0-1.1); MONO % 6 % (0-9); NEUT # 7.3 x10^3uL (1.8-7.7); NEUT % 65 % (31-73); NITRITE,URINE NEGATIVE (NEG); PLATELET COUNT 309 x10^3/uL (140-400); PROTEIN,URINE NEGATIVE (NEG-TRACE); RED BLOOD COUNT 4.87 x10^6/uL (3.50-5.40); RED CELL DISTRIBUTION WIDTH 16.7 % (11.5-14.5); WHITE BLOOD COUNT 11.3 x10^3/uL (4.0-11.0)
[2017-09-10] MEDS: ONDANSETRON PF 4 MG/2 ML VIAL. IV (20:34)
[2017-09-10] MEDS: IV NORMAL SALINE 1000ML BAG 1,000 ML IV (20:35)
[2017-09-10 20:38] LABS: ANION GAP 10 (6-14); BLOOD UREA NITROGEN 16 mg/dL (7-20); BUN/CREATININE RATIO 18 (6-20); CALCIUM 9.4 mg/dL (8.5-10.1); CARBON DIOXIDE 29 mmol/L (21-32); CHLORIDE 103 mmol/L (98-107); CREATININE 0.9 mg/dL (0.6-1.0); GFR 75.1; GLUCOSE 96 mg/dL (70-99); POTASSIUM 3.7 mmol/L (3.5-5.1); SODIUM 142 mmol/L (136-145)
[2017-09-10 20:42] LABS: BACTERIA,URINE MODERATE /HPF (0-FEW); RBC,URINE >40 /HPF (0-2); SQUAMOUS EPITHELIAL CELL,UR MOD /LPF; WBC,URINE OCC /HPF (0-4)
[2017-09-10 20:44] LABS: ALBUMIN 3.6 g/dL (3.4-5.0); ALBUMIN/GLOBULIN RATIO 0.9 (1.0-1.7); ALK PHOS 90 U/L (46-116); ALT (SGPT) 38 U/L (14-59); AST (SGOT) 21 U/L (15-37); LIPASE 140 U/L (73-393); TOTAL BILIRUBIN 0.3 mg/dL (0.2-1.0); TOTAL PROTEIN 7.7 g/dL (6.4-8.2)
[2017-09-10] MEDS: DICLOFENAC SODIUM 25 MG TABLET.DR PO (21:45)
== END 2017-09-10 22:04 | disposition home or self-care (01) ==
LOC: ER 19:52
DX: R10.9 Unspecified abdominal pain (principal); R11.2 Nausea with vomiting, unspecified; Z90.49 Acquired absence of other specified parts of digestive tract; Z87.442 Personal history of urinary calculi; Z88.5 Allergy status to narcotic agent; Z88.4 Allergy status to anesthetic agent; Z88.6 Allergy status to analgesic agent; Z88.8 Allergy status to other drugs, medicaments and biological substances
CPT/HCPCS: 36415; 76775; 80053; 81001; 81025; 83690; 85025; 87086; 96361; 96374; 99285-25; J2405; J7030

== ENCOUNTER 2017-10-02 09:14 | Emergency (ER) | payer SELFPAY ==
[2017-10-02] MEDS: ACETAMINOPHEN 325 MG TABLET. PO (09:55)
== END 2017-10-02 10:35 | disposition home or self-care (01) ==
LOC: ER 10:35
DX: S83.92XA Sprain of unspecified site of left knee, initial encounter (principal); F17.200 Nicotine dependence, unspecified, uncomplicated; Z90.49 Acquired absence of other specified parts of digestive tract; Z88.5 Allergy status to narcotic agent; Z88.8 Allergy status to other drugs, medicaments and biological substances; W01.0XXA Fall on same level from slipping, tripping and stumbling without subsequent striking against object, initial encounter; Y93.89 Activity, other specified; Y92.89 Other specified places as the place of occurrence of the external cause; Y99.8 Other external cause status
CPT/HCPCS: 73562; 99284

== ENCOUNTER 2017-10-19 16:43 | Emergency (ER) | payer SELFPAY ==
[2017-10-19 17:01] LABS: URINE HCG POC HCG NEGATIVE (Negative)
[2017-10-19 17:03] LABS: BILIRUBIN,URINE NEGATIVE (NEG); CLARITY,URINE CLOUDY; COLOR,URINE AMBER; GLUCOSE,URINE NEGATIVE (NEG); NITRITE,URINE NEGATIVE (NEG); PH,URINE 6.5; PROTEIN,URINE NEGATIVE (NEG-TRACE)
[2017-10-19] MEDS: IV NORMAL SALINE 1000ML BAG 1,000 ML IV (17:15)
[2017-10-19] MEDS: ONDANSETRON PF 4 MG/2 ML VIAL. IV (17:21)
[2017-10-19] MEDS: fentaNYL PF VIAL 100 MCG/2 ML VIAL IV (17:21)
[2017-10-19 17:27] LABS: BACTERIA,URINE MODERATE /HPF (0-FEW); RBC,URINE 0 /HPF (0-2); SQUAMOUS EPITHELIAL CELL,UR MANY /LPF; WBC,URINE 0 /HPF (0-4)
[2017-10-19 17:28] LABS: BASO # 0.1 x10^3/uL (0.0-0.2); BASO % 1 % (0-3); EOS # 0.3 x10^3/uL (0.0-0.7); EOS % 4 % (0-3); HEMATOCRIT 40.7 % (36.0-47.0); HEMOGLOBIN 13.3 g/dL (12.0-15.5); LYMPH # 3.8 x10^3/uL (1.0-4.8); LYMPH % 46 % (24-48); MEAN CORPUSCULAR HEMOGLOBIN 28 pg (25-35); MEAN CORPUSCULAR HGB CONC 33 g/dL (31-37); MEAN CORPUSCULAR VOLUME 85 fL (79-100); MONO # 0.6 x10^3/uL (0.0-1.1); MONO % 8 % (0-9); NEUT # 3.4 x10^3uL (1.8-7.7); NEUT % 42 % (31-73); PLATELET COUNT 178 x10^3/uL (140-400); RED BLOOD COUNT 4.79 x10^6/uL (3.50-5.40); RED CELL DISTRIBUTION WIDTH 19.4 % (11.5-14.5); WHITE BLOOD COUNT 8.3 x10^3/uL (4.0-11.0)
[2017-10-19 17:30] LABS: ANION GAP 5 (6-14); BLOOD UREA NITROGEN 12 mg/dL (7-20); BUN/CREATININE RATIO 13 (6-20); CALCIUM 7.8 mg/dL (8.5-10.1); CARBON DIOXIDE 32 mmol/L (21-32); CHLORIDE 102 mmol/L (98-107); CREATININE 0.9 mg/dL (0.6-1.0); GFR 75.1; GLUCOSE 101 mg/dL (70-99); POTASSIUM 3.5 mmol/L (3.5-5.1); SODIUM 139 mmol/L (136-145)
[2017-10-19] MEDS: LIDOCAINE (700MG/PATCH) PATCH. TD (17:30)
[2017-10-19 17:31] LABS: ADD MAN DIFF? YES
[2017-10-19 17:38] LABS: ALBUMIN 2.4 g/dL (3.4-5.0); ALBUMIN/GLOBULIN RATIO 0.6 (1.0-1.7); ALK PHOS 87 U/L (46-116); ALT (SGPT) 35 U/L (14-59); AST (SGOT) 40 U/L (15-37); TOTAL BILIRUBIN 0.4 mg/dL (0.2-1.0); TOTAL PROTEIN 6.2 g/dL (6.4-8.2)
[2017-10-19 18:09] LABS: % ATYL 9 % (0-0); % BANDS 15 % (0-9); % EOS 2 % (0-5); % LYMPHS 31 % (24-48); % MONOS 3 % (0-10); % SEGS 40 % (35-66)
[2017-10-19 18:11] LABS: ANISOCYTOSIS SLIGHT; PLT ESTIMATE ADEQUATE (ADEQUATE); POLYCHROMASIA SLIGHT
[2017-10-19] MEDS: ONDANSETRON ODT 4 MG TAB.RAPDIS. PO (18:35)
[2017-10-19] MEDS: HYDROcodone/APAP 5/325MG 1 TAB TABLET PO (18:35)
== END 2017-10-19 18:47 | disposition home or self-care (01) ==
LOC: ER 16:43
DX: M54.5 Low back pain (principal); R10.9 Unspecified abdominal pain; R11.2 Nausea with vomiting, unspecified; R19.7 Diarrhea, unspecified; G89.29 Other chronic pain; Z87.442 Personal history of urinary calculi; Z90.49 Acquired absence of other specified parts of digestive tract; Z88.4 Allergy status to anesthetic agent; Z88.5 Allergy status to narcotic agent; Z88.8 Allergy status to other drugs, medicaments and biological substances
CPT/HCPCS: 36415; 80053; 81001; 81025; 85007; 85025; 87086; 96361; 96365; 96374; 96375; 99284-25; J2405; J3010; J7030; Q0162

== ENCOUNTER 2017-10-20 22:17 | Emergency (ER) | payer SELFPAY ==
[2017-10-21] MEDS: ONDANSETRON ODT 4 MG TAB.RAPDIS. PO (00:22)
[2017-10-21] MEDS: MORPHINE SULFATE 10 MG/ML VIAL. IM (00:23)
== END 2017-10-21 00:23 | disposition home or self-care (01) ==
LOC: ER 10-21 00:23
DX: M54.5 Low back pain (principal); G89.29 Other chronic pain; F11.20 Opioid dependence, uncomplicated; Z90.49 Acquired absence of other specified parts of digestive tract; E66.01 Morbid (severe) obesity due to excess calories; Z68.45 Body mass index [BMI] 70 or greater, adult; Z87.442 Personal history of urinary calculi; Z76.5 Malingerer [conscious simulation]; Z88.5 Allergy status to narcotic agent; Z88.8 Allergy status to other drugs, medicaments and biological substances
CPT/HCPCS: 96372; 99283; J2270; Q0162

== ENCOUNTER 2017-11-13 11:10 | Emergency (ER) | payer SELFPAY ==
[~2017-11-13] VITALS: Ht 172.7 cm; Wt 167.8 kg
[~2017-11-13 11:10] MED LIST changes: +CIPR500T PO; +DICL50TA4 PO; +HYDR25TA PO; +IBUP-1027 PO
[2017-11-13 12:05] VITALS: BP 166/105
[2017-11-13 12:07] LABS: BILIRUBIN,URINE NEGATIVE (NEG); CLARITY,URINE CLEAR; COLOR,URINE YELLOW; NITRITE,URINE NEGATIVE (NEG); PH,URINE 8.5; PROTEIN,URINE NEGATIVE (NEG-TRACE); UROBILINOGEN,URINE 0.2 mg/dL (0.2 mg/dL)
[2017-11-13 12:11] LABS: BACTERIA,URINE 0 /HPF (0-FEW); RBC,URINE >40 /HPF (0-2); SQUAMOUS EPITHELIAL CELL,UR MOD /LPF; WBC,URINE OCC /HPF (0-4)
[2017-11-13] MEDS ORDERED: ONDA4TAB7 PO (12:27)
--- NOTE | 2017-11-13 12:32 | PHYS DOC ---
Past Medical History Past Medical History: Kidney Infection, Kidney Stone, UTI, Other Additional Past Medical Histor: ENDOMETRIOSIS, ovarian cysts,chronic back pain, morbid obesity Past Surgical History: Cholecystectomy Additional Past Surgical Histo: GALLBLADDER REMOVED, laproscopic surgery Alcohol Use: None Drug Use: None Adult General Chief Complaint Chief Complaint: LOWER BACK PAIN OR INJURY [facility] HPI Patient is a 27 year old [female presenting with low back pain onset at least one week ago if not longer she is on Cipro for possible or if she says reported UTI from her OB doctor. Pain is sharp mid back radiates towards the front area social with nausea and vomiting no fever she says this is not her ovarian cyst pain because it is in the back more than the front. Patient has no fever. Patient of note has a long history of chronic pain. I did print out the case tracks and it looks like she received 43 tablets of narcotic pain medication since October 19. She is received a total of 21 narcotic prescription since March 2017 this year alone. In addition to that she had 5 CT scans here since June 2016 all of which were read as normal. No acute pathology. Patient is also had multiple pelvic ultrasounds that have been read as no acute pathology and this similar timeframe. See EMR for detailed history. Review of Systems Review of Systems Constitutional: Denies fever or chills [] Eyes: Denies change in visual acuity, redness, or eye pain [] HENT: Denies nasal congestion or sore throat [] Respiratory: Denies cough or shortness of breath [] Cardiovascular: No additional information not addressed in HPI [] GI: Denies abdominal pain, nausea, vomiting, bloody stools or diarrhea [] : Denies dysuria or hematuria [] Musculoskeletal: Denies back pain or joint pain [] Integument: Denies rash or skin lesions [] Neurologic: Denies headache, focal weakness or sensory changes [] Endocrine: Denies polyuria or polydipsia [] All other systems were reviewed and found to be within normal limits, except as documented in this note. Current Medications Current Medications Current Medications Medications (Trade) Dose Ordered Sig/Sharri Start Time Stop Time Status Last Admin Dose Admin Acetaminophen (Tylenol) 1,000 mg 1X ONCE 11/13/17 12:30 11/13/17 12:31 UNV Allergies Allergies Allergies Coded Allergies Type Severity Reaction Last Updated Verified codeine Allergy Intermediate 11/11/15 Yes duloxetine Allergy Intermediate hives 2/26/16 Yes fentanyl Allergy Intermediate hives 05/12/15 Yes hydrocodone Allergy Intermediate hives 10/21/17 Yes ketorolac Allergy Intermediate hives 05/12/15 Yes paroxetine Allergy Intermediate hives 05/12/15 Yes promethazine Allergy Intermediate hives 05/12/15 Yes tramadol Allergy Intermediate hives, Tolerates Morphine 05/12/15 Yes prochlorperazine Adverse Reaction Intermediate Anxiety 11/25/14 Yes Physical Exam Physical Exam Constitutional: Well developed, obese, no acute distress, non-toxic appearance. [] HENT: Normocephalic, atraumatic, bilateral external ears normal, oropharynx moist, no oral exudates, nose normal. [] Eyes: PERRLA, EOMI, conjunctiva normal, no discharge. [] Neck: Normal range of motion, no tenderness, supple, no stridor. [] Pulmonary: Normal respiratory effort no increased work of breathing no obvious chest wall trauma Abdomen: Bowel sounds normal, soft, no tenderness, no masses, no pulsatile masses. [] Skin: Warm, dry, no erythema, no rash. [] Back: Positive CVA tenderness on the right. Extremities: No tenderness, no cyanosis, no clubbing, ROM intact, no edema. [] Neurologic: Alert and oriented X 3, normal motor function, normal sensory function, no focal deficits noted. [] Psychologic: Affect normal, judgement normal, mood normal. [] Current Patient Data Vital Signs Vital Signs Date Time Temp Pulse Resp B/P (MAP) Pulse Ox O2 Delivery O2 Flow Rate FiO2 11/13/17 11:27 98.1 101 20 157/99 (118) 98 Room Air 98.1 Lab Values Laboratory Tests Test 11/13/17 11:37 11/13/17 11:52 Urine Collection Type Unknown Urine Color Yellow Urine Clarity Clear Urine pH 8.5 Urine Specific [place] 1.010 Urine Protein Negative mg/dL (NEG-TRACE) Urine Glucose (UA) Negative mg/dL (NEG) Urine Ketones (Stick) Negative mg/dL (NEG) Urine Blood Large (NEG) Urine Nitrite Negative (NEG) Urine Bilirubin Negative (NEG) Urine Urobilinogen Dipstick 0.2 mg/dL (0.2 mg/dL) Urine Leukocyte Esterase Trace (NEG) Urine RBC >40 /HPF (0-2) Urine WBC Occ /HPF (0-4) Urine Squamous Epithelial Cells Mod /LPF Urine Bacteria 0 /HPF (0-FEW) POC Urine HCG, Qualitative Hcg negative (Negative) EKG EKG [] Radiology/Procedures Radiology/Procedures [] Course & Med Decision Making Course & Med Decision Making Pertinent Labs and Imaging studies reviewed. (See chart for details) [] Patient has no fever. Patient of note has a long history of chronic pain. I did print out the case tracks and it looks like she received 43 tablets of narcotic pain medication since October 19. She is received a total of 21 narcotic prescription since March 2017 this year alone. In addition to that she had 5 CT scans here since June 2016 all of which were read as normal. No acute pathology. Patient is also had multiple pelvic ultrasounds that have been read as no acute pathology and this similar timeframe. See EMR for detailed history. Today urinalysis does show blood this is not a new problem for her. I think in light of the above imaging is not necessary I recommended Tylenol for pain continue with the Cipro right now UTI looks better but she should continue the course. I doubt any other acute intra-abdominal pathology return precautions were discussed. Patient was advised on the importance of follow-up for her blood pressure which is moderately elevated at this time Dragon Disclaimer Dragon Disclaimer This electronic medical record was generated, in whole or in part, using a voice recognition dictation system. Departure Departure Impression: Primary Impression: Low back pain Additional Impression: Elevated blood pressure reading Disposition: HOME, SELF-CARE Condition: STABLE Referrals: NO PCP (PCP) Patient Instructions: Back Pain, Adult, [facility] Scripts Ondansetron Hcl (ZOFRAN) 4 Mg Tablet 4 MG PO PRN TID PRN for NAUSEA/VOMITING, #5 nausea/vomiting Prov: DONALDO AGUILAR MD 11/13/17 Problem Qualifiers DONALDO AGUILAR MD Nov 13, 2017 12:32
[2017-11-13] MEDS ORDERED: ONDANSETRON ODT 4 MG TAB.RAPDIS. ONE (12:42)
[2017-11-13] MEDS ORDERED: ACETAMINOPHEN 500 MG TABLET PO ONE (13:00)
[2017-11-13] MEDS ORDERED: ONDANSETRON ODT 4 MG TAB.RAPDIS. PO ONE (13:00)
== END 2017-11-13 12:47 | disposition home or self-care (01) ==
LOC: ER 11:10
DX: M54.5 Low back pain (principal); R11.2 Nausea with vomiting, unspecified; R03.0 Elevated blood-pressure reading, without diagnosis of hypertension; E66.01 Morbid (severe) obesity due to excess calories; G89.29 Other chronic pain; Z68.43 Body mass index [BMI] 50.0-59.9, adult; Z90.49 Acquired absence of other specified parts of digestive tract; Z88.5 Allergy status to narcotic agent; Z88.8 Allergy status to other drugs, medicaments and biological substances
CPT/HCPCS: 81001; 81025; 99283; Q0162

== ENCOUNTER 2017-11-19 08:16 | Emergency (ER) | payer SELFPAY ==
[~2017-11-19] VITALS: Ht 165.1 cm; Wt 165.1 kg
[2017-11-19 09:10] VITALS: BP 144/103
--- NOTE | 2017-11-19 09:27 | PHYS DOC ---
Past Medical History Past Medical History: Kidney Infection, Kidney Stone, UTI, Other Additional Past Medical Histor: ENDOMETRIOSIS, ovarian cysts,chronic back pain, morbid obesity Past Surgical History: Cholecystectomy Additional Past Surgical Histo: GALLBLADDER REMOVED, laproscopic surgery Alcohol Use: None Drug Use: None Adult General Chief Complaint Chief Complaint: FLANK PAIN HPI HPI Patient is a 27 year old female with a history of chronic pain presents to the ED complaining of left flank pain 2 days. Describes the pain as sharp. Rates the pain as 8 out of 10. History of kidney stones. States she made an appointment with her urologist for this Friday, unsure of his name. States she has been vomiting. Denies fever, dysuria, hematuria, abdominal pain, chest pain , shortness of breath or dizziness. Review of Systems Review of Systems Constitutional: Denies fever or chills [] HENT: Denies nasal congestion or sore throat [] Respiratory: Denies cough or shortness of breath [] Cardiovascular: No additional information not addressed in HPI [] GI: Complains of flank pain. Denies abdominal pain, nausea, vomiting, bloody stools or diarrhea [] : Denies dysuria or hematuria [] Musculoskeletal: Denies back pain or joint pain [] Integument: Denies rash or skin lesions [] Neurologic: Denies headache, focal weakness or sensory changes [] All other systems were reviewed and found to be within normal limits, except as documented in this note. Allergies Allergies Allergies Coded Allergies Type Severity Reaction Last Updated Verified codeine Allergy Intermediate 11/11/15 Yes duloxetine Allergy Intermediate hives 05/12/15 Yes fentanyl Allergy Intermediate hives 05/12/15 Yes hydrocodone Allergy Intermediate hives 10/21/17 Yes ketorolac Allergy Intermediate hives 05/12/15 Yes paroxetine Allergy Intermediate hives 05/12/15 Yes promethazine Allergy Intermediate hives 05/12/15 Yes tramadol Allergy Intermediate hives, Tolerates Morphine 05/12/15 Yes prochlorperazine Adverse Reaction Intermediate Anxiety 11/25/14 Yes Physical Exam Physical Exam Constitutional: Well developed, well nourished, no acute distress, non-toxic appearance. [] HENT: Normocephalic, atraumatic Eyes: PERRLA, EOMI, conjunctiva normal, no discharge. [] Neck: Normal range of motion, no tenderness, supple, no stridor. [] Cardiovascular:Heart rate regular rhythm, no murmur [] Lungs & Thorax: Bilateral breath sounds clear to auscultation [] Abdomen: Bowel sounds normal, soft, no tenderness, no masses, no pulsatile masses. [] Skin: Warm, dry, no erythema, no rash. [] Back: No tenderness, mild left CVA tenderness. [] Extremities: No tenderness, no cyanosis, no clubbing, ROM intact, no edema. [] Neurologic: Alert and oriented X 3, normal motor function, normal sensory function, no focal deficits noted. [] Psychologic: Affect normal, judgement normal, mood normal. [] Current Patient Data Vital Signs Vital Signs Date Time Temp Pulse Resp B/P (MAP) Pulse Ox O2 Delivery O2 Flow Rate FiO2 11/19/17 09:10 100 18 144/103 (117) 99 Room Air EKG EKG [] Radiology/Procedures Radiology/Procedures [] Course & Med Decision Making Course & Med Decision Making Pertinent Labs and Imaging studies reviewed. (See chart for details) Patient has a history of chronic pain. She has received 43 tablets of narcotic pain medication since October 19 and a total of 21 narcotic prescriptions since March 2017. At our ER she has had 5 CT scans here since June 2016 and multiple pelvic US which show no acute pathology. Patient refusing blood work and imaging unless getting something for her pain prior. Offered patient alternatives to narcotics and anti-nausea medications. Patient opts to sign out AMA. Discussed risks including , disability and complications. Patient verbalizes understanding and signs out AMA. Staff Physician Addendum: I was working in the ER during the course of this patient's visit. I was available for consultation as needed, but I was not directly involved in the care of this patient. Dragon Disclaimer Dragon Disclaimer This electronic medical record was generated, in whole or in part, using a voice recognition dictation system. Departure Departure Impression: Primary Impression: Flank pain Additional Impressions: Drug-seeking behavior Left against medical advice Disposition: 07 AGAINST MEDICAL ADVICE Condition: STABLE Referrals: NO PCP (PCP) Problem Qualifiers NITHIN ORDAZ Nov 19, 2017 09:27 DONALDO AGUILAR MD Nov 21, 2017 20:57
== END 2017-11-19 09:20 | disposition left against medical advice (07) ==
LOC: ER 08:16
DX: R10.9 Unspecified abdominal pain (principal); G89.29 Other chronic pain; E66.01 Morbid (severe) obesity due to excess calories; Z87.442 Personal history of urinary calculi; Z68.44 Body mass index [BMI] 60.0-69.9, adult; Z76.5 Malingerer [conscious simulation]; Z88.5 Allergy status to narcotic agent; Z88.1 Allergy status to other antibiotic agents; Z88.8 Allergy status to other drugs, medicaments and biological substances; Z90.49 Acquired absence of other specified parts of digestive tract
CPT/HCPCS: 99281

== ENCOUNTER 2017-12-29 12:00 | Emergency (ER) | payer SELFPAY ==
[~2017-12-29] VITALS: Ht 162.6 cm; Wt 186.0 kg
[2017-12-29 12:45] VITALS: BP 180/106
--- NOTE | 2017-12-29 14:44 | RAD ---
EXAM: Left ankle and foot, 3 views. HISTORY: Fall. COMPARISON: None. FINDINGS: 3 views of the left ankle and foot are obtained. There is no fracture, dislocation or subluxation. The ankle mortise is intact. There is no osteochondral lesion. IMPRESSION: No acute osseous finding. Electronically signed by: Pauline Mcwilliams MD (12/29/2017 2:41 PM) [facility]
--- NOTE | 2017-12-29 14:44 | RAD ---
EXAM: Left ankle and foot, 3 views. HISTORY: Fall. COMPARISON: None. FINDINGS: 3 views of the left ankle and foot are obtained. There is no fracture, dislocation or subluxation. The ankle mortise is intact. There is no osteochondral lesion. IMPRESSION: No acute osseous finding. Electronically signed by: Pauline Mcwilliams MD (12/29/2017 2:41 PM) [facility]
--- NOTE | 2017-12-29 14:52 | PHYS DOC ---
Past Medical History Past Medical History: Kidney Infection, Kidney Stone, UTI, Other Additional Past Medical Histor: ENDOMETRIOSIS, ovarian cysts,chronic back pain, morbid obesity Past Surgical History: Cholecystectomy Additional Past Surgical Histo: GALLBLADDER REMOVED, laproscopic surgery Additional Information: 03/18 ppd Alcohol Use: None Drug Use: None Adult General Chief Complaint Chief Complaint: ANKLE PROBLEM HPI HPI Patient is a 27 year old female presents with ankle pain. She twisted it she heard a pop she is worried it is broken. This just happened at 11 AM Allergies Allergies Allergies Coded Allergies Type Severity Reaction Last Updated Verified codeine Allergy Intermediate 11/11/15 Yes duloxetine Allergy Intermediate hives 05/12/15 Yes fentanyl Allergy Intermediate hives 05/12/15 Yes hydrocodone Allergy Intermediate hives 10/21/17 Yes ketorolac Allergy Intermediate hives 05/12/15 Yes paroxetine Allergy Intermediate hives 05/12/15 Yes promethazine Allergy Intermediate hives 05/12/15 Yes tramadol Allergy Intermediate hives, Tolerates Morphine 05/12/15 Yes prochlorperazine Adverse Reaction Intermediate Anxiety 11/25/14 Yes Physical Exam Physical Exam Constitutional: Well developed, well nourished, no acute distress, non-toxic appearance. [] HENT: Normocephalic, atraumatic, bilateral external ears normal, oropharynx moist, no oral exudates, nose normal. [] Eyes: PERRLA, EOMI, conjunctiva normal, no discharge. [] Neck: Normal range of motion, no tenderness, supple, no stridor. [] Pulmonary: Normal respiratory effort no increased work of breathing no obvious chest wall trauma Abdomen: Bowel sounds normal, soft, no tenderness, no masses, no pulsatile masses. Skin: Warm, dry, no erythema, no rash. [] Back: No tenderness, no CVA tenderness. [] Extremities: Tenderness noted as well as swelling over the ATFL of the left ankle mild tenderness of the base of the fifth Neurologic: Alert and oriented X 3, normal motor function, normal sensory function, no focal deficits noted. [] Psychologic: Affect normal, judgement normal, mood normal. [] Current Patient Data Vital Signs Vital Signs Date Time Temp Pulse Resp B/P (MAP) Pulse Ox O2 Delivery O2 Flow Rate FiO2 12/29/17 12:45 99.3 113 20 180/106 (130) 99 Room Air 99.3 EKG EKG [] Radiology/Procedures Radiology/Procedures [] Course & Med Decision Making Course & Med Decision Making Pertinent Labs and Imaging studies reviewed. (See chart for details) []Foot and ankle x-ray showed no acute fracture ankle sprain Reuben wrap given Dragon Disclaimer Dragon Disclaimer This electronic medical record was generated, in whole or in part, using a voice recognition dictation system. Departure Departure Impression: Primary Impression: Ankle sprain Disposition: HOME, SELF-CARE Condition: STABLE Patient Instructions: Ankle Sprain DONALDO AGUILAR MD Dec 29, 2017 14:52
== END 2017-12-29 15:05 | disposition home or self-care (01) ==
LOC: ER 12:00
DX: S93.402A Sprain of unspecified ligament of left ankle, initial encounter (principal); Z88.4 Allergy status to anesthetic agent; Z88.5 Allergy status to narcotic agent; Z88.6 Allergy status to analgesic agent; Z88.8 Allergy status to other drugs, medicaments and biological substances; G89.29 Other chronic pain; F17.200 Nicotine dependence, unspecified, uncomplicated; Z90.49 Acquired absence of other specified parts of digestive tract; E66.01 Morbid (severe) obesity due to excess calories; Z68.45 Body mass index [BMI] 70 or greater, adult; X50.9XXA Other and unspecified overexertion or strenuous movements or postures, initial encounter; Y93.89 Activity, other specified; Y92.89 Other specified places as the place of occurrence of the external cause; Y99.8 Other external cause status
CPT/HCPCS: 73610; 73630; 99284

== ENCOUNTER 2018-01-05 18:28 | Emergency (ER) | payer SELFPAY ==
[~2018-01-05] VITALS: Ht 162.6 cm; Wt 172.4 kg
[2018-01-05 19:08] LABS: BILIRUBIN,URINE NEGATIVE (NEG); CLARITY,URINE CLEAR; COLOR,URINE YELLOW; NITRITE,URINE NEGATIVE (NEG); PROTEIN,URINE NEGATIVE (NEG-TRACE); UROBILINOGEN,URINE 0.2 mg/dL (0.2 mg/dL)
--- NOTE | 2018-01-05 19:26 | PHYS DOC ---
Past Medical History Past Medical History: Kidney Infection, Kidney Stone, UTI, Other Additional Past Medical Histor: ENDOMETRIOSIS, ovarian cysts,chronic back pain, morbid obesity Past Surgical History: Cholecystectomy Additional Past Surgical Histo: GALLBLADDER REMOVED, laproscopic surgery Alcohol Use: None Drug Use: None Adult General Chief Complaint Chief Complaint: ABDOMINAL PAIN IN HPI HPI Patient is a 27 year old female who presents with left flank pain. Patient began to have pain yesterday. She states today the pain became worse and more persistent. She had some nausea and vomiting as well. She relates that the pain feels identical to prior kidney stone related symptoms. She has never required intervention for stones and has always passed them previously. The patient is about 6 weeks gestation based on her last menstrual cycle. She denies pelvic pain. No vaginal bleeding or discharge. She has seen some blood in her urine. Review of Systems Review of Systems Constitutional: Denies fever or chills Eyes: Denies HENT: Denies Respiratory: Denies Cardiovascular: No additional information not addressed in HPI GI: Denies abdominal pain : hematuria Musculoskeletal: Denies back pain Integument: Denies rash or skin lesions Neurologic: Denies headache All other systems were reviewed and found to be within normal limits, except as documented in this note. Current Medications Current Medications Current Medications Medications (Trade) Dose Ordered Sig/Sharri Start Time Stop Time Status Last Admin Dose Admin Morphine Sulfate (Morphine Sulfate) 10 mg PRN Q6HRS PRN 01/05/18 21:30 01/05/18 21:48 10 MG Ondansetron HCl (Zofran) 4 mg 1X ONCE 01/05/18 20:00 01/05/18 20:01 DC 01/05/18 19:50 4 MG Sodium Chloride 1,000 ml @ 1,000 mls/hr 1X ONCE 01/05/18 20:00 01/05/18 20:59 DC 01/05/18 19:51 1,000 MLS/HR Allergies Allergies Allergies Coded Allergies Type Severity Reaction Last Updated Verified codeine Allergy Intermediate 11/11/15 Yes duloxetine Allergy Intermediate hives 05/12/15 Yes fentanyl Allergy Intermediate hives 05/12/15 Yes hydrocodone Allergy Intermediate hives 10/21/17 Yes ketorolac Allergy Intermediate hives 05/12/15 Yes paroxetine Allergy Intermediate hives 05/12/15 Yes promethazine Allergy Intermediate hives 05/12/15 Yes tramadol Allergy Intermediate hives, Tolerates Morphine 05/12/15 Yes prochlorperazine Adverse Reaction Intermediate Anxiety 11/25/14 Yes Physical Exam Physical Exam Constitutional: Well developed, well nourished, moderate distress 2/2 pain HENT: Normocephalic, atraumatic, bilateral external ears normal, oropharynx moist Eyes: PERRLA, EOMI, conjunctiva normal Neck: Normal range of motion Cardiovascular:Heart rate regular rhythm, no murmur Lungs & Thorax: Bilateral breath sounds clear to auscultation Abdomen: Bowel sounds normal, soft, no tenderness, obese Skin: Warm, dry, no erythema, no rash Back: No tenderness Extremities: No tenderness, no edema Neurologic: Alert and oriented X 3 Psychologic: Affect normal Current Patient Data Vital Signs Vital Signs Date Time Temp Pulse Resp B/P (MAP) Pulse Ox O2 Delivery O2 Flow Rate FiO2 01/05/18 21:48 20 97 Room Air 01/05/18 19:30 98.6 105 186/88 (120) 98.6 Lab Values Laboratory Tests Test 01/05/18 18:55 01/05/18 19:02 01/05/18 19:50 Urine Collection Type Unknown Urine Color Yellow Urine Clarity Clear Urine pH 8.0 Urine Specific [place] 1.015 Urine Protein Negative mg/dL (NEG-TRACE) Urine Glucose (UA) Negative mg/dL (NEG) Urine Ketones (Stick) Negative mg/dL (NEG) Urine Blood Large (NEG) Urine Nitrite Negative (NEG) Urine Bilirubin Negative (NEG) Urine Urobilinogen Dipstick 0.2 mg/dL (0.2 mg/dL) Urine Leukocyte Esterase Trace (NEG) Urine RBC >40 /HPF (0-2) Urine WBC Occ /HPF (0-4) Urine Squamous Epithelial Cells Many /LPF Urine Bacteria Few /HPF (0-FEW) POC Urine HCG, Qualitative Hcg positive (Negative) White Blood Count 8.6 x10^3/uL (4.0-11.0) Red Blood Count 4.29 x10^6/uL (3.50-5.40) Hemoglobin 13.0 g/dL (12.0-15.5) Hematocrit 38.0 % (36.0-47.0) Mean Corpuscular Volume 89 fL (79-100) Mean Corpuscular Hemoglobin 30 pg (25-35) Mean Corpuscular Hemoglobin Concent 34 g/dL (31-37) Red Cell Distribution Width 15.1 % (11.5-14.5) H Platelet Count 276 x10^3/uL (140-400) Neutrophils (%) (Auto) 61 % (31-73) Lymphocytes (%) (Auto) 29 % (24-48) Monocytes (%) (Auto) 6 % (0-9) Eosinophils (%) (Auto) 4 % (0-3) H Basophils (%) (Auto) 1 % (0-3) Neutrophils # (Auto) 5.2 x10^3uL (1.8-7.7) Lymphocytes # (Auto) 2.4 x10^3/uL (1.0-4.8) Monocytes # (Auto) 0.5 x10^3/uL (0.0-1.1) Eosinophils # (Auto) 0.3 x10^3/uL (0.0-0.7) Basophils # (Auto) 0.1 x10^3/uL (0.0-0.2) Sodium Level 138 mmol/L (136-145) Potassium Level 4.1 mmol/L (3.5-5.1) Chloride Level 102 mmol/L (98-107) Carbon Dioxide Level 28 mmol/L (21-32) Anion Gap 8 (6-14) Blood Urea Nitrogen 8 mg/dL (7-20) Creatinine 0.7 mg/dL (0.6-1.0) Estimated GFR (Cockcroft-Gault) 100.4 Glucose Level 96 mg/dL (70-99) Calcium Level 9.2 mg/dL (8.5-10.1) Laboratory Tests 01/05/18 19:50 Laboratory Tests 01/05/18 19:50 EKG EKG [] Radiology/Procedures Radiology/Procedures ndication:LT FLANK PAIN TECHNIQUE: Grayscale, color Doppler and spectral waveform is of the renal obtained. COMPARISON:None FINDINGS: The right kidney measures 11.6 x 4.8 x 3.4 cm (longitudinal, AP, transverse) without hydronephrosis. Left kidney measures 12.6 x 5.3 x 4.5 cm without hydronephrosis. Bilateral ureteral jets are visualized. IMPRESSION: No hydronephrosis. Course & Med Decision Making Course & Med Decision Making Pertinent Labs and Imaging studies reviewed. (See chart for details) 19:20: Patient is evaluated. Medications are ordered for pain along with IV fluids. Will do ultrasound to evaluate for hydrocodone the left. Suspect kidney stone. 21:45: Patient is evaluated in the emergency department for likely kidney stone. She is so no CT scan was completed. Ultrasound was performed and no hydronephrosis was appreciated. She did have blood in her urine but no signs of infection. In the emergency department, she was given multiple doses of morphine which did relieve her pain symptoms. Attempts were made at bedside ultrasound to evaluate her supposedly 6 week fetus. A gestational sac was seen but no fetus or heart tones could be appreciated. This was a very difficult exam given the equipment and the body habitus of the patient. Nonetheless, she has no pelvic complaints. No bleeding or discharge. No pelvic pain. No indication today for a formal pelvic ultrasound of a possible 6 week fetus. Patient will follow up with her primary OB doctor. She is discharged home with Percocet for pain and Zofran for nausea. Dragon Disclaimer Dragon Disclaimer This electronic medical record was generated, in whole or in part, using a voice recognition dictation system. Departure Departure Referrals: NO PCP (PCP) Scripts Oxycodone/Apap 5-325 (PERCOCET 5-325 MG TABLET) 1 Each Tablet 1-2 EACH PO PRN TID PRN for severe pain, #25 TAB pain Prov: MERON FARRAR DO 01/05/18 Ondansetron (ZOFRAN ODT) 4 Mg Tab.rapdis 4 MG PO TID PRN for NAUSEA/VOMITING, #20 TAB Prov: MERON FARRAR DO 01/05/18 MERON FARRAR DO Jan 05, 2018 19:26
[2018-01-05] MEDS ORDERED: MORPHINE SULFATE 4 MG/ML VIAL. IV ONE ×2 (19:30→21:30)
[2018-01-05 19:37] LABS: BACTERIA,URINE FEW /HPF (0-FEW); RBC,URINE >40 /HPF (0-2); SQUAMOUS EPITHELIAL CELL,UR MANY /LPF; WBC,URINE OCC /HPF (0-4)
[2018-01-05 19:57] LABS: BASO # 0.1 x10^3/uL (0.0-0.2); BASO % 1 % (0-3); EOS # 0.3 x10^3/uL (0.0-0.7); EOS % 4 % (0-3); LYMPH # 2.4 x10^3/uL (1.0-4.8); LYMPH % 29 % (24-48); MEAN CORPUSCULAR HEMOGLOBIN 30 pg (25-35); MEAN CORPUSCULAR HGB CONC 34 g/dL (31-37); MEAN CORPUSCULAR VOLUME 89 fL (79-100); MONO # 0.5 x10^3/uL (0.0-1.1); MONO % 6 % (0-9); NEUT # 5.2 x10^3uL (1.8-7.7); NEUT % 61 % (31-73); PLATELET COUNT 276 x10^3/uL (140-400); RED BLOOD COUNT 4.29 x10^6/uL (3.50-5.40); RED CELL DISTRIBUTION WIDTH 15.1 % (11.5-14.5); WHITE BLOOD COUNT 8.6 x10^3/uL (4.0-11.0)
[2018-01-05] MEDS ORDERED: ONDANSETRON PF 4 MG/2 ML VIAL. IV ONE (20:00)
[2018-01-05] MEDS ORDERED: IV NORMAL SALINE 1000ML BAG 1,000 ML IV ONE (20:00)
[2018-01-05 20:10] LABS: CALCIUM 9.2 mg/dL (8.5-10.1); CREATININE 0.7 mg/dL (0.6-1.0); GFR 100.4; POTASSIUM 4.1 mmol/L (3.5-5.1)
--- NOTE | 2018-01-05 20:57 | RAD ---
Indication:LT FLANK PAIN TECHNIQUE: Grayscale, color Doppler and spectral waveform is of the renal obtained. COMPARISON:None FINDINGS: The right kidney measures 11.6 x 4.8 x 3.4 cm (longitudinal, AP, transverse) without hydronephrosis. Left kidney measures 12.6 x 5.3 x 4.5 cm without hydronephrosis. Bilateral ureteral jets are visualized. IMPRESSION: No hydronephrosis. Electronically signed by: Kirill Martinez DO (01/05/2018 8:53 PM) [facility]
[2018-01-05 21:00] VITALS: BP 129/57
[2018-01-05] MEDS ORDERED: HYDR-971 PO (21:02)
[2018-01-05] MEDS ORDERED: ONDA4TAB10 PO (21:02)
[2018-01-05] MEDS ORDERED: MORPHINE SULFATE 10 MG/ML VIAL. IV PRN (21:30)
[2018-01-05] MEDS ORDERED: OXYC-323 PO (21:37)
== END 2018-01-05 21:55 | disposition home or self-care (01) ==
LOC: ER 18:28
DX: O26.891 Other specified pregnancy related conditions, first trimester (principal); R10.9 Unspecified abdominal pain; O21.9 Vomiting of pregnancy, unspecified; G89.29 Other chronic pain; R31.9 Hematuria, unspecified; O23.41 Unspecified infection of urinary tract in pregnancy, first trimester; Z87.442 Personal history of urinary calculi; Z3A.01 Less than 8 weeks gestation of pregnancy; Z90.49 Acquired absence of other specified parts of digestive tract; Z88.5 Allergy status to narcotic agent; Z88.8 Allergy status to other drugs, medicaments and biological substances; Z88.6 Allergy status to analgesic agent
CPT/HCPCS: 36415; 76770; 80048; 81001; 81025; 85025; 96361; 96374; 96375; 96376; 99285; J2270; J2405; J7030

== ENCOUNTER 2018-01-25 19:11 | Emergency (ER) | payer SELFPAY ==
[~2018-01-25] VITALS: Ht 162.6 cm; Wt 172.4 kg
[2018-01-25 20:09] LABS: BILIRUBIN,URINE NEGATIVE (NEG); CLARITY,URINE CLEAR; COLOR,URINE YELLOW; NITRITE,URINE NEGATIVE (NEG); PROTEIN,URINE NEGATIVE (NEG-TRACE); UROBILINOGEN,URINE 0.2 mg/dL (0.2 mg/dL)
[2018-01-25 20:22] LABS: BACTERIA,URINE 0 /HPF (0-FEW); RBC,URINE TNTC /HPF (0-2); SQUAMOUS EPITHELIAL CELL,UR MOD /LPF; WBC,URINE 0 /HPF (0-4)
[2018-01-25 20:24] LABS: U PREG PATIENT POSITIVE (NEG)
[2018-01-25] MEDS ORDERED: MORPHINE SULFATE 10 MG/ML VIAL. IV ONE ×2 (20:30→22:15)
[2018-01-25] MEDS ORDERED: ONDANSETRON PF 4 MG/2 ML VIAL. IV ONE (20:30)
[2018-01-25 20:41] LABS: BASO # 0.1 x10^3/uL (0.0-0.2); BASO % 1 % (0-3); EOS # 0.3 x10^3/uL (0.0-0.7); EOS % 3 % (0-3); HEMATOCRIT 39.5 % (36.0-47.0); HEMOGLOBIN 13.2 g/dL (12.0-15.5); LYMPH # 2.9 x10^3/uL (1.0-4.8); LYMPH % 32 % (24-48); MEAN CORPUSCULAR HEMOGLOBIN 30 pg (25-35); MEAN CORPUSCULAR HGB CONC 34 g/dL (31-37); MEAN CORPUSCULAR VOLUME 90 fL (79-100); MONO # 0.5 x10^3/uL (0.0-1.1); MONO % 5 % (0-9); NEUT # 5.5 x10^3uL (1.8-7.7); NEUT % 59 % (31-73); PLATELET COUNT 270 x10^3/uL (140-400); RED BLOOD COUNT 4.38 x10^6/uL (3.50-5.40); RED CELL DISTRIBUTION WIDTH 14.9 % (11.5-14.5); WHITE BLOOD COUNT 9.3 x10^3/uL (4.0-11.0)
[2018-01-25 20:59] LABS: CALCIUM 9.2 mg/dL (8.5-10.1); CREATININE 0.6 mg/dL (0.6-1.0); POTASSIUM 3.7 mmol/L (3.5-5.1)
--- NOTE | 2018-01-25 22:36 | RAD ---
Examination: RENAL COMPLETE BILATERAL History: RT FLANK PAIN Comparison/Correlation: None Findings: Renal ultrasound exam performed. Right kidney measures 11.3 cm x 5.4 cm x 4.9 cm. Left kidney measures 11.4 cm x 6.4 cm x 4.9 cm. No hydronephrosis wonderful devices. Renal contours and echotexture are normal. Urinary bladder is mostly decompressed. Bilateral ureteral jets are identified. Aorta and inferior vena cava are not visualized. Impression: Normal renal ultrasound exam. Electronically signed by: Randal Henry MD (01/25/2018 10:33 PM) [facility]
--- NOTE | 2018-01-25 22:38 | RAD ---
Examination: OB < 14 WKS History: UNSURE OF PREG DATES Comparison/Correlation: None Findings: OB ultrasound exam was performed. Uterus measures 9.8 cm x 5.4 cm x 5.1 cm. No pelvic free fluid. Intrauterine gestational sac is present. Fetus is seen with heart rate of 171 bpm. Pen Mar-rump length of 2.1 cm corresponds 8 weeks 6 days gestation. EDC by ultrasound is 08/31/2018. Yolk sac is identified. No subchorionic hemorrhage. Normal amount of amniotic fluid identified. Impression: Single living intrauterine gestation with age by crown-rump length corresponding to 8 weeks 6 days. Electronically signed by: Randal Henry MD (01/25/2018 10:35 PM) [facility]
--- NOTE | 2018-01-25 22:48 | PHYS DOC ---
Past Medical History Past Medical History: Kidney Infection, Kidney Stone, UTI, Other Additional Past Medical Histor: ENDOMETRIOSIS, ovarian cysts,chronic back pain, morbid obesity Past Surgical History: Cholecystectomy Additional Past Surgical Histo: GALLBLADDER REMOVED, laproscopic surgery Alcohol Use: None Drug Use: None Adult General Chief Complaint Chief Complaint: FLANK PAIN HPI HPI Patient is a 28 year old female who presents with patient states that she has some blood in her urine, nausea, vomiting, no fever but was recently diagnosed with a kidney stone and states that she did pass a left kidney stone. Patient states she does have a urology appointment on and OB appointment on Friday as she is 8 weeks . Patient states that she's history kidney stones, cholecystectomy, ovarian cyst, endometriosis,. Patient takes no medications daily. She states that she took Tylenol at 1800. Review of Systems Review of Systems Constitutional: Denies fever or chills [] Eyes: Denies change in visual acuity, redness, or eye pain [] HENT: Denies nasal congestion or sore throat [] Respiratory: Denies cough or shortness of breath [] Cardiovascular: No additional information not addressed in HPI [] GI: Denies abdominal pain, nausea, vomiting, bloody stools or diarrhea [] : Denies dysuria or hematuria [] Musculoskeletal: Denies back pain or joint pain [] Integument: Denies rash or skin lesions [] Neurologic: Denies headache, focal weakness or sensory changes [] Endocrine: Denies polyuria or polydipsia [] All other systems were reviewed and found to be within normal limits, except as documented in this note. Current Medications Current Medications Current Medications Medications (Trade) Dose Ordered Sig/Sharri Start Time Stop Time Status Last Admin Dose Admin Morphine Sulfate (Morphine Sulfate) 5 mg 1X ONCE 01/25/18 22:15 01/25/18 22:16 DC 01/25/18 22:25 5 MG Ondansetron HCl (Zofran) 4 mg 1X ONCE 01/25/18 20:30 01/25/18 20:31 DC 01/25/18 20:39 4 MG Oxycodone/ Acetaminophen (Percocet 5/325) 1 tab 1X ONCE 01/25/18 23:30 01/25/18 23:30 DC 01/25/18 23:07 1 TAB Allergies Allergies Allergies Coded Allergies Type Severity Reaction Last Updated Verified codeine Allergy Intermediate 11/11/15 Yes duloxetine Allergy Intermediate hives 05/12/15 Yes fentanyl Allergy Intermediate hives 05/12/15 Yes hydrocodone Allergy Intermediate hives 10/21/17 Yes ketorolac Allergy Intermediate hives 05/12/15 Yes paroxetine Allergy Intermediate hives 05/12/15 Yes promethazine Allergy Intermediate hives 05/12/15 Yes tramadol Allergy Intermediate hives, Tolerates Morphine 05/12/15 Yes prochlorperazine Adverse Reaction Intermediate Anxiety 11/25/14 Yes Physical Exam Physical Exam Constitutional: Well developed, well nourished, no acute distress, non-toxic appearance. [] HENT: Normocephalic, atraumatic, bilateral external ears normal, oropharynx moist, no oral exudates, nose normal. [] Eyes: PERRLA, EOMI, conjunctiva normal, no discharge. [] Neck: Normal range of motion, no tenderness, supple, no stridor. [] Cardiovascular:Heart rate regular rhythm, no murmur [] Lungs & Thorax: Bilateral breath sounds clear to auscultation [] Abdomen: Bowel sounds normal, soft, no tenderness, no masses, no pulsatile masses. [] Skin: Warm, dry, no erythema, no rash. [] Back: No tenderness, no CVA tenderness. [] Extremities: No tenderness, no cyanosis, no clubbing, ROM intact, no edema. [] Neurologic: Alert and oriented X 3, normal motor function, normal sensory function, no focal deficits noted. [] Psychologic: Affect normal, judgement normal, mood normal. [] Current Patient Data Vital Signs Vital Signs Date Time Temp Pulse Resp B/P (MAP) Pulse Ox O2 Delivery O2 Flow Rate FiO2 01/25/18 23:07 18 98 Room Air 01/25/18 23:00 94 137/68 (91) 01/25/18 20:06 98.2 98.2 Lab Values Laboratory Tests Test 01/25/18 19:13 01/25/18 20:32 Urine Collection Type Unknown Urine Color Yellow Urine Clarity Clear Urine pH 7.0 Urine Specific [place] 1.010 Urine Protein Negative mg/dL (NEG-TRACE) Urine Glucose (UA) Negative mg/dL (NEG) Urine Ketones (Stick) Negative mg/dL (NEG) Urine Blood Large (NEG) Urine Nitrite Negative (NEG) Urine Bilirubin Negative (NEG) Urine Urobilinogen Dipstick 0.2 mg/dL (0.2 mg/dL) Urine Leukocyte Esterase Trace (NEG) Urine RBC Tntc /HPF (0-2) Urine WBC 0 /HPF (0-4) Urine Squamous Epithelial Cells Mod /LPF Urine Bacteria 0 /HPF (0-FEW) Urine Test Positive (NEG) White Blood Count 9.3 x10^3/uL (4.0-11.0) Red Blood Count 4.38 x10^6/uL (3.50-5.40) Hemoglobin 13.2 g/dL (12.0-15.5) Hematocrit 39.5 % (36.0-47.0) Mean Corpuscular Volume 90 fL (79-100) Mean Corpuscular Hemoglobin 30 pg (25-35) Mean Corpuscular Hemoglobin Concent 34 g/dL (31-37) Red Cell Distribution Width 14.9 % (11.5-14.5) H Platelet Count 270 x10^3/uL (140-400) Neutrophils (%) (Auto) 59 % (31-73) Lymphocytes (%) (Auto) 32 % (24-48) Monocytes (%) (Auto) 5 % (0-9) Eosinophils (%) (Auto) 3 % (0-3) Basophils (%) (Auto) 1 % (0-3) Neutrophils # (Auto) 5.5 x10^3uL (1.8-7.7) Lymphocytes # (Auto) 2.9 x10^3/uL (1.0-4.8) Monocytes # (Auto) 0.5 x10^3/uL (0.0-1.1) Eosinophils # (Auto) 0.3 x10^3/uL (0.0-0.7) Basophils # (Auto) 0.1 x10^3/uL (0.0-0.2) Sodium Level 137 mmol/L (136-145) Potassium Level 3.7 mmol/L (3.5-5.1) Chloride Level 101 mmol/L (98-107) Carbon Dioxide Level 25 mmol/L (21-32) Anion Gap 11 (6-14) Blood Urea Nitrogen 8 mg/dL (7-20) Creatinine 0.6 mg/dL (0.6-1.0) Estimated GFR (Cockcroft-Gault) 119.0 Glucose Level 87 mg/dL (70-99) Calcium Level 9.2 mg/dL (8.5-10.1) Laboratory Tests 01/25/18 20:32 Laboratory Tests 01/25/18 20:32 EKG EKG [] Radiology/Procedures Radiology/Procedures [] Impressions: [place] [address] IMAGING REPORT Signed PATIENT: DONNA LUI ACCOUNT: [id number] : 1990 LOCATION: ER AGE: 28 SEX: F EXAM STATUS: REG ER ORD. PHYSICIAN: VENKATESH CARABALLO APRN REASON: Right flank pain, right lower abdomen PROCEDURE: RENAL COMPLETE BILATERAL Examination: RENAL COMPLETE BILATERAL History: RT FLANK PAIN Comparison/Correlation: None Findings: Renal ultrasound exam performed. Right kidney measures 11.3 cm x 5.4 cm x 4.9 cm. Left kidney measures 11.4 cm x 6.4 cm x 4.9 cm. No hydronephrosis wonderful devices. Renal contours and echotexture are normal. Urinary bladder is mostly decompressed. Bilateral ureteral jets are identified. Aorta and inferior vena cava are not visualized. Impression: Normal renal ultrasound exam. Electronically signed by: Randal Mueller MD (01/25/2018 10:33 PM) [facility] [place] DICTATED and SIGNED BY: RANDAL MUELLER MD DATE: 01/25/[address] [id number] IMAGING REPORT Signed PATIENT: DONNA LUI ACCOUNT: [id number] : 1990 LOCATION: ER AGE: 28 SEX: F EXAM STATUS: REG ER ORD. PHYSICIAN: VENKATESH CARABALLO APRN REASON: Right flank pain, right lower abdomen PROCEDURE: OB < 14 WKS Examination: OB < 14 WKS History: UNSURE OF PREG DATES Comparison/Correlation: None Findings: OB ultrasound exam was performed. Uterus measures 9.8 cm x 5.4 cm x 5.1 cm. No pelvic free fluid. Intrauterine gestational sac is present. Fetus is seen with heart rate of 171 bpm. [place]-rump length of 2.1 cm corresponds 8 weeks 6 days gestation. EDC by ultrasound is 08/31/2018. Yolk sac is identified. No subchorionic hemorrhage. Normal amount of amniotic fluid identified. Impression: Single living intrauterine gestation with age by crown-rump length corresponding to 8 weeks 6 days. Electronically signed by: Randal Mueller MD (01/25/2018 10:35 PM) [facility] DICTATED and SIGNED BY: RANDAL MUELLER MD DATE: 01/25/18 223 Course & Med Decision Making Course & Med Decision Making Patient is a 28 year old female who presents with patient states that she has some blood in her urine, nausea, vomiting, no fever but was recently diagnosed with a kidney stone and states that she did pass a left kidney stone. Patient states she does have a urology appointment on and OB appointment on Friday as she is 8 weeks . Patient states that she's history kidney stones, cholecystectomy, ovarian cyst, endometriosis,. Patient takes no medications daily. She states that she took Tylenol at 1800. Lungs are clear bilaterally in all lobes. Patient has CVA tenderness to the right side. Abdominal area is nontender and soft. She is alert and oriented. Skin is pink warm and dry. Patient rates her pain an 8 out of 10. She is given 2 separate doses of 5 mg of morphine in the ED, Zofran 4 mg, 1 bolus of normal saline. Patient's OB ultrasound shows Single living intrauterine gestation with age by crown-rump length corresponding to 8 weeks 6 days a heart rate of 171. Since renal ultrasound shows Normal renal ultrasound exam. Patient does have blood in her urine and she has presumably kidney stones still. She is to keep her urology appointment her OB appointment for this week. I have given her upper prescription for Zofran and Percocet. Patient's blood work is normal. She is discharged home in stable condition. Dragon Disclaimer Dragon Disclaimer This electronic medical record was generated, in whole or in part, using a voice recognition dictation system. Departure Departure Impression: Primary Impression: Acute right flank pain Disposition: HOME, SELF-CARE Condition: STABLE Referrals: NO PCP (PCP) Patient Instructions: Flank Pain, Kidney Stones Additional Instructions: Follow-up with urology as scheduled on and OB appointment as scheduled on Friday. Take Zofran for the nausea vomiting. Scripts Oxycodone/Apap 5-325 (PERCOCET 5-325 MG TABLET) 1 Each Tablet 1 TAB PO PRN Q6HRS PRN for PAIN for 4 Days, TAB 0 Refills Prov: VENKATESH CARABALLO APRN 01/25/18 Ondansetron (ONDANSETRON ODT) 4 Mg Tab.rapdis 4 MG PO BID PRN for NAUSEA/VOMITING, #30 TAB Prov: VENKATESH CARABALLO APRN 01/25/18 VENKATESH CARABALLO APRN Jan 25, 2018 22:47
[2018-01-25] MEDS ORDERED: OXYC-323 PO (22:54)
[2018-01-25] MEDS ORDERED: ONDA4TAB12 PO (22:54)
[2018-01-25 23:00] VITALS: BP 137/68
[2018-01-25] MEDS ORDERED: oxyCODONE/APAP 5/325 1 TAB TABLET PO ONE (23:30)
== END 2018-01-25 23:10 | disposition home or self-care (01) ==
LOC: ER 19:11
DX: O99.89 Other specified diseases and conditions complicating pregnancy, childbirth and the puerperium (principal); O21.9 Vomiting of pregnancy, unspecified; O99.211 Obesity complicating pregnancy, first trimester; R10.9 Unspecified abdominal pain; R31.9 Hematuria, unspecified; G89.29 Other chronic pain; Z87.442 Personal history of urinary calculi; Z90.49 Acquired absence of other specified parts of digestive tract; Z68.44 Body mass index [BMI] 60.0-69.9, adult; Z88.5 Allergy status to narcotic agent; Z88.8 Allergy status to other drugs, medicaments and biological substances; Z3A.08 8 weeks gestation of pregnancy
CPT/HCPCS: 36415; 76770; 76801; 80048; 81001; 81025; 85025; 96374; 96375; 96376; 99285; J2270; J2405; 87086

== ENCOUNTER 2018-01-27 10:03 | Emergency (ER) | payer SELFPAY ==
[~2018-01-27] VITALS: Ht 162.6 cm; Wt 176.9 kg
[~2018-01-27 10:03] MED LIST changes: +HYDR-3135 PO; +HYDR-3164 PO; -HYDR-963 PO; -HYDR-971 PO; +ONDA4TAB12 PO
[2018-01-27 10:22] VITALS: BP 169/74
[2018-01-27 10:42] LABS: BILIRUBIN,URINE NEGATIVE (NEG); CLARITY,URINE CLEAR; COLOR,URINE YELLOW; NITRITE,URINE NEGATIVE (NEG); PH,URINE 5.5; PROTEIN,URINE NEGATIVE (NEG-TRACE); UROBILINOGEN,URINE 0.2 mg/dL (0.2 mg/dL)
[2018-01-27 10:55] LABS: BACTERIA,URINE FEW /HPF (0-FEW); RBC,URINE 20-40 /HPF (0-2); SQUAMOUS EPITHELIAL CELL,UR FEW /LPF
[2018-01-27] MEDS ORDERED: ONDA4TAB7 PO (10:58)
[2018-01-27] MEDS ORDERED: PROC10TA57 PO (10:58)
--- NOTE | 2018-01-27 10:58 | PHYS DOC ---
Past Medical History Past Medical History: Kidney Infection, Kidney Stone, UTI, Other Additional Past Medical Histor: ENDOMETRIOSIS, ovarian cysts,chronic back pain, morbid obesity Past Surgical History: Cholecystectomy Additional Past Surgical Histo: GALLBLADDER REMOVED, laproscopic surgery Alcohol Use: None Drug Use: None Adult General Chief Complaint Chief Complaint: FLANK PAIN [facility] HPI Patient is a 28 year old female with known history of kidney stones, who presents to the ED today complaining of flank pain with nausea that has been going on for couple days. Patient states she was seen in the ED 2 days ago for flank pain and nausea. She states she was informed she has kidney stones and was also notified she is 8 weeks . She states she has an appointment with her [employer] on this week. She states she was sent home with Zofran ODT, she states the ODT tablets of $300 for 30 tablets. She also states she was sent home with oxycodone, she states oxycodone is too strong for her she would like some hydrocodone. Informed patient will not write her any prescription narcotic pain medicines in any case she is 8-9 weeks that should not be on any narcotics. She is well known to this ED for drug seeking behavior. Recommended she takes Tylenol as needed for her pain. Informed her I can switch her from Zofran ODT to regular Zofran. Also gave her prescription for Compazine. Urine noted for UTI d/c on cephalexin Patient left without her papers after i told her i will not write her any rx for narcotics. Review of Systems Review of Systems Constitutional: Denies fever or chills [] Eyes: Denies change in visual acuity, redness, or eye pain [] HENT: Denies nasal congestion or sore throat [] Respiratory: Denies cough or shortness of breath [] Cardiovascular: No additional information not addressed in HPI [] GI: Nausea. Denies abdominal pain, vomiting, bloody stools or diarrhea [] : Chronic flank pain. Denies dysuria or hematuria [] Musculoskeletal: Denies back pain or joint pain [] Integument: Denies rash or skin lesions [] Neurologic: Denies headache, focal weakness or sensory changes [] All other systems were reviewed and found to be within normal limits, except as documented in this note. Allergies Allergies Allergies Coded Allergies Type Severity Reaction Last Updated Verified codeine Allergy Intermediate 11/11/15 Yes duloxetine Allergy Intermediate hives 05/12/15 Yes fentanyl Allergy Intermediate hives 05/12/15 Yes hydrocodone Allergy Intermediate hives 10/21/17 Yes ketorolac Allergy Intermediate hives 05/12/15 Yes paroxetine Allergy Intermediate hives 05/12/15 Yes promethazine Allergy Intermediate hives 05/12/15 Yes tramadol Allergy Intermediate hives, Tolerates Morphine 05/12/15 Yes prochlorperazine Adverse Reaction Intermediate Anxiety 11/25/14 Yes Physical Exam Physical Exam Constitutional: Well developed, well nourished, no acute distress, non-toxic appearance. [] HENT: Normocephalic, atraumatic, bilateral external ears normal, oropharynx moist, no oral exudates, nose normal. [] Eyes: PERRLA, EOMI, conjunctiva normal, no discharge. [] Neck: Normal range of motion, no tenderness, supple, no stridor. [] Cardiovascular:Heart rate regular rhythm, no murmur [] Lungs & Thorax: Bilateral breath sounds clear to auscultation [] Abdomen: Bowel sounds normal, soft, no tenderness, no masses, no pulsatile masses. [] Skin: Warm, dry, no erythema, no rash. [] Back: No tenderness, no CVA tenderness. [] Extremities: No tenderness, no cyanosis, no clubbing, ROM intact, no edema. [] Neurologic: Alert and oriented X 3, normal motor function, normal sensory function, no focal deficits noted. [] Psychologic: Affect normal, judgement normal, mood normal. [] Current Patient Data Vital Signs Vital Signs Date Time Temp Pulse Resp B/P (MAP) Pulse Ox O2 Delivery O2 Flow Rate FiO2 01/27/18 10:22 98.7 105 20 169/74 (105) 100 Room Air 98.7 Lab Values Laboratory Tests Test 01/27/18 10:25 Urine Collection Type Unknown Urine Color Yellow Urine Clarity Clear Urine pH 5.5 Urine Specific [place] 1.020 Urine Protein Negative mg/dL (NEG-TRACE) Urine Glucose (UA) Negative mg/dL (NEG) Urine Ketones (Stick) Negative mg/dL (NEG) Urine Blood Large (NEG) Urine Nitrite Negative (NEG) Urine Bilirubin Negative (NEG) Urine Urobilinogen Dipstick 0.2 mg/dL (0.2 mg/dL) Urine Leukocyte Esterase Small (NEG) Urine RBC 20-40 /HPF (0-2) Urine WBC 1-4 /HPF (0-4) Urine Squamous Epithelial Cells Few /LPF Urine Bacteria Few /HPF (0-FEW) Urine Mucus Slight /LPF Microbiology 01/27/18 Urine Culture - Final, Complete 01/27/18 Urine Culture Result 1 (KINJAL) - Final, Complete EKG EKG [] Radiology/Procedures Radiology/Procedures [] Course & Med Decision Making Course & Med Decision Making Pertinent Labs and Imaging studies reviewed. (See chart for details) See history of present illness she left without her papers after i told her i will not write her any rx for narcotics. Dragon Disclaimer Correlsenseon Disclaimer This electronic medical record was generated, in whole or in part, using a voice recognition dictation system. Departure Departure Impression: Primary Impression: Nausea Additional Impressions: Flank pain Urinary tract infection Disposition: HOME, SELF-CARE Condition: STABLE Referrals: NO PCP (PCP) Follow-up with your [employer] and urologist as soon as possible Patient Instructions: ABCs of , Flank Pain, [id number], Nausea, Adult, [id number], Urinary Tract Infection Additional Instructions: We switched you from Zofran ODT to regular Zofran. We also gave a prescription for Compazine. We will not write you prescription for hydrocodone. You're she should not be on any narcotics. Please follow-up with your [employer] as well as urologist as soon as possible. Take the prescribed nausea medicines as needed. You can take Tylenol as needed for pain. Your urine has small amount of infection. Please complete your antibiotics as soon as possible Scripts Cephalexin (CEPHALEXIN) 500 Mg Tablet 1 TAB PO BID, #14 TAB Prov: LB MONSON LEAD PHARMACY TECHNICIAN 01/27/18 Prochlorperazine Maleate (Compazine) 10 Mg Tablet 10 MG PO TID PRN for NAUSEA/VOMITING, #30 TAB Prov: LB MONSON LEAD PHARMACY TECHNICIAN 01/27/18 Ondansetron Hcl (ZOFRAN) 4 Mg Tablet 1 TAB PO Q6HRS, #30 TAB Prov: TELLYALB LEAD PHARMACY TECHNICIAN 01/27/18 Attending Signature Attending Signature I have reviewed the PA/LEATHER DRESSER's note and plan of care. I was available for consultation as needed during the patient's visit in the emergency department. I agree with the clinical impression, plan, and disposition. Problem Qualifiers Additional Impressions: Weeks of gestation: 9 weeks Qualified Codes: Z3A.09 - 9 weeks gestation of Urinary tract infection Urinary tract infection type: site unspecified Hematuria presence: without hematuria Qualified Codes: N39.0 - Urinary tract infection, site not specified LB MONSON APRN Jan 27, 2018 10:58 IRAJ LORD DO Jan 29, 2018 17:30
[2018-01-27] MEDS ORDERED: CEPH500T PO (11:02)
== END 2018-01-27 11:27 | disposition home or self-care (01) ==
LOC: ER 10:03
DX: O23.41 Unspecified infection of urinary tract in pregnancy, first trimester (principal); Z87.442 Personal history of urinary calculi; Z3A.09 9 weeks gestation of pregnancy; Z90.49 Acquired absence of other specified parts of digestive tract; Z88.4 Allergy status to anesthetic agent; Z88.5 Allergy status to narcotic agent; Z88.6 Allergy status to analgesic agent; Z88.8 Allergy status to other drugs, medicaments and biological substances
CPT/HCPCS: 81001; 87086; 99284

== ENCOUNTER 2018-02-23 19:28 | Emergency (ER) | payer SELFPAY ==
[~2018-02-23] VITALS: Ht 162.6 cm; Wt 176.9 kg
[~2018-02-23 19:28] MED LIST changes: +CEPH500T PO; -OXYC-323 PO; +OXYC1TAB15 PO; +OXYC1TAB22 PO; +PROC10TA57 PO
[2018-02-23 19:50] VITALS: BP 163/83
--- NOTE | 2018-02-23 20:47 | PHYS DOC ---
Past Medical History Past Medical History: Kidney Infection, Kidney Stone, UTI, Other Additional Past Medical Histor: ENDOMETRIOSIS, ovarian cysts,chronic back pain, morbid obesity, DRUG SEEKING Past Surgical History: Cholecystectomy Additional Past Surgical Histo: GALLBLADDER REMOVED, laproscopic surgery Alcohol Use: None Drug Use: None Adult General Chief Complaint Chief Complaint: FLANK PAIN [facility] HPI Patient is a 28 year old white male female with history of kidney stones, chronic flank pain, endometriosis, drug-seeking behavior, who presents today complaining of moderate left flank pain for 2 days with nausea vomiting. Patient is currently 13 weeks 1 para 0. She is well known to this ED for drug seeking behavior. She is asking for pain medications right away. Offered patient Tylenol considering she is . She states she took Tylenol and needs something stronger. Informed her she is and i will not be giving her any narcotics, she stated "if that is the case i will leave". Informed her she can sign out AGAINST MEDICAL ADVICE but we will not give her any narcotics for her chronic pain. Informed her she is she should not be taking any narcotics. Review of Systems Review of Systems Constitutional: Denies fever or chills [] Eyes: Denies change in visual acuity, redness, or eye pain [] HENT: Denies nasal congestion or sore throat [] Respiratory: Denies cough or shortness of breath [] Cardiovascular: No additional information not addressed in HPI [] GI: Denies abdominal pain, nausea, vomiting, bloody stools or diarrhea [] : reports left flank pain. Denies dysuria or hematuria [] Musculoskeletal: Denies back pain or joint pain [] Integument: Denies rash or skin lesions [] Neurologic: Denies headache, focal weakness or sensory changes [] All other systems were reviewed and found to be within normal limits, except as documented in this note. Allergies Allergies Allergies Coded Allergies Type Severity Reaction Last Updated Verified codeine Allergy Intermediate 11/11/15 Yes duloxetine Allergy Intermediate hives 05/12/15 Yes fentanyl Allergy Intermediate hives 05/12/15 Yes hydrocodone Allergy Intermediate hives 10/21/17 Yes ketorolac Allergy Intermediate hives 05/12/15 Yes paroxetine Allergy Intermediate hives 05/12/15 Yes promethazine Allergy Intermediate hives 05/12/15 Yes tramadol Allergy Intermediate hives, Tolerates Morphine 05/12/15 Yes prochlorperazine Adverse Reaction Intermediate Anxiety 11/25/14 Yes Physical Exam Physical Exam Constitutional: Well developed, well nourished, no acute distress, non-toxic appearance. [] HENT: Normocephalic, atraumatic, bilateral external ears normal, oropharynx moist, no oral exudates, nose normal. [] Eyes: PERRLA, EOMI, conjunctiva normal, no discharge. [] Neck: Normal range of motion, no tenderness, supple, no stridor. [] Cardiovascular:Heart rate regular rhythm, no murmur [] Lungs & Thorax: Bilateral breath sounds clear to auscultation [] Abdomen: Bowel sounds normal, soft, no tenderness, no masses, no pulsatile masses. [] Skin: Warm, dry, no erythema, no rash. [] Back: No tenderness, no CVA tenderness. [] Extremities: No tenderness, no cyanosis, no clubbing, ROM intact, no edema. [] Neurologic: Alert and oriented X 3, normal motor function, normal sensory function, no focal deficits noted. [] Psychologic: Affect normal, judgement normal, mood normal. [] Current Patient Data Vital Signs Vital Signs Date Time Temp Pulse Resp B/P (MAP) Pulse Ox O2 Delivery O2 Flow Rate FiO2 02/23/18 19:50 98.2 113 22 163/83 (109) 98 Room Air 98.2 Lab Values Laboratory Tests Test 02/23/18 20:00 POC Urine HCG, Qualitative Hcg positive (Negative) EKG EKG [] Radiology/Procedures Radiology/Procedures [] Course & Med Decision Making Course & Med Decision Making Pertinent Labs and Imaging studies reviewed. (See chart for details) see HPI Dragon Disclaimer Dragon Disclaimer This electronic medical record was generated, in whole or in part, using a voice recognition dictation system. Departure Departure Impression: Primary Impression: Flank pain Disposition: AGAINST MEDICAL ADVICE Condition: STABLE Referrals: NO PCP (PCP) LB MONSON APRN Feb 23, 2018 20:47
[2018-02-23 20:52] LABS: BILIRUBIN,URINE NEGATIVE (NEG); CLARITY,URINE TURBID; COLOR,URINE YELLOW; NITRITE,URINE NEGATIVE (NEG); PH,URINE 8.5; PROTEIN,URINE 30 mg/dL (NEG-TRACE); UROBILINOGEN,URINE 0.2 mg/dL (0.2 mg/dL)
[2018-02-23 20:59] LABS: BACTERIA,URINE FEW /HPF (0-FEW); RBC,URINE >40 /HPF (0-2); SQUAMOUS EPITHELIAL CELL,UR MOD /LPF; WBC,URINE OCC /HPF (0-4)
[2018-02-23 21:00] LABS: AMORPHOUS SEDIMENT,UR PRESENT /HPF
== END 2018-02-23 20:44 | disposition left against medical advice (07) ==
LOC: ER 19:28
DX: O21.8 Other vomiting complicating pregnancy (principal); O99.89 Other specified diseases and conditions complicating pregnancy, childbirth and the puerperium; O23.591 Infection of other part of genital tract in pregnancy, first trimester; R10.9 Unspecified abdominal pain; O99.211 Obesity complicating pregnancy, first trimester; N80.8 Other endometriosis; G89.29 Other chronic pain; Z87.442 Personal history of urinary calculi; Z68.44 Body mass index [BMI] 60.0-69.9, adult; Z90.49 Acquired absence of other specified parts of digestive tract; Z76.5 Malingerer [conscious simulation]; Z88.5 Allergy status to narcotic agent; Z88.8 Allergy status to other drugs, medicaments and biological substances; Z3A.13 13 weeks gestation of pregnancy
CPT/HCPCS: 81001; 81025; 87086; 99283

== ENCOUNTER 2018-03-04 22:04 | Emergency (ER) | payer SELFPAY ==
[~2018-03-04] VITALS: Ht 167.6 cm; Wt 158.8 kg
[2018-03-04 22:21] VITALS: BP 147/88
--- NOTE | 2018-03-04 22:49 | PHYS DOC ---
Past Medical History Past Medical History: Kidney Stone Additional Past Medical Histor: ENDOMETRIOSIS, ovarian cysts,chronic back pain, morbid obesity, DRUG SEEKING Past Surgical History: Cholecystectomy Additional Past Surgical Histo: GALLBLADDER REMOVED, laproscopic surgery Alcohol Use: None Drug Use: None Adult General Chief Complaint Chief Complaint: ABDOMINAL PAIN IN HPI HPI Patient is a 28 year old female with history of kidney stones who presents today complaining of 5 out of 10 left flank pain with nausea and vomiting that has been going on since yesterday. Patient states she is currently 14 weeks 1 para 0. Patient herself is asking if she can given any nausea medicine as well as some pain medicine. I offered Zofran and Tylenol. She states she would like something for pain stronger for pain. She begged for awhile for "even the smallest dose of strong pain medicine" . Informed patient she is she shouldn't be taking narcotics, they're not good for the baby. Informed her I can give her Tylenol. She stated that she'll take Zofran and sign out AMA. Patient is well known to this ED for drug seeking behavior. Review of Systems Review of Systems Constitutional: Denies fever or chills [] Eyes: Denies change in visual acuity, redness, or eye pain [] HENT: Denies nasal congestion or sore throat [] Respiratory: Denies cough or shortness of breath [] Cardiovascular: No additional information not addressed in HPI [] GI: 14 weeks. Denies abdominal pain, nausea, vomiting, bloody stools or diarrhea [] : Reports left flank pain. Denies dysuria or hematuria [] Musculoskeletal: Denies back pain or joint pain [] Integument: Denies rash or skin lesions [] Neurologic: Denies headache, focal weakness or sensory changes [] All other systems were reviewed and found to be within normal limits, except as documented in this note. Current Medications Current Medications Current Medications Medications (Trade) Dose Ordered Sig/Sharri Start Time Stop Time Status Last Admin Dose Admin Ondansetron HCl (Zofran Odt) 4 mg 1X ONCE 03/04/18 23:00 03/04/18 23:01 Allergies Allergies Allergies Coded Allergies Type Severity Reaction Last Updated Verified codeine Allergy Intermediate 11/11/15 Yes duloxetine Allergy Intermediate hives 05/12/15 Yes fentanyl Allergy Intermediate hives 05/12/15 Yes hydrocodone Allergy Intermediate hives 10/21/17 Yes ketorolac Allergy Intermediate hives 05/12/15 Yes paroxetine Allergy Intermediate hives 05/12/15 Yes promethazine Allergy Intermediate hives 05/12/15 Yes tramadol Allergy Intermediate hives, Tolerates Morphine 05/12/15 Yes prochlorperazine Adverse Reaction Intermediate Anxiety 11/25/14 Yes Physical Exam Physical Exam Constitutional: Well developed, well nourished, no acute distress, non-toxic appearance. [] HENT: Normocephalic, atraumatic, bilateral external ears normal, oropharynx moist, no oral exudates, nose normal. [] Eyes: PERRLA, EOMI, conjunctiva normal, no discharge. [] Neck: Normal range of motion, no tenderness, supple, no stridor. [] Cardiovascular:Heart rate regular rhythm, no murmur [] Lungs & Thorax: Bilateral breath sounds clear to auscultation [] Abdomen: Bowel sounds normal, soft, no tenderness, no masses, no pulsatile masses. [] Skin: Warm, dry, no erythema, no rash. [] Back: No tenderness, no CVA tenderness. [] Extremities: No tenderness, no cyanosis, no clubbing, ROM intact, no edema. [] Neurologic: Alert and oriented X 3, normal motor function, normal sensory function, no focal deficits noted. [] Psychologic: Affect normal, judgement normal, mood normal. [] Current Patient Data Vital Signs Vital Signs Date Time Temp Pulse Resp B/P (MAP) Pulse Ox O2 Delivery O2 Flow Rate FiO2 03/04/18 22:21 98.4 118 26 147/88 (107) 98 Room Air 98.4 EKG EKG [] Radiology/Procedures Radiology/Procedures [] Course & Med Decision Making Course & Med Decision Making Pertinent Labs and Imaging studies reviewed. (See chart for details) See history of present illness Dragon Disclaimer Dragon Disclaimer This electronic medical record was generated, in whole or in part, using a voice recognition dictation system. Departure Departure Impression: Primary Impression: Narcotic dependence Additional Impressions: Left against medical advice Left flank pain Disposition: 07 AGAINST MEDICAL ADVICE Condition: STABLE Referrals: NO PCP (PCP) Problem Qualifiers [facility] [employer] Mar 04, 2018 22:48
[2018-03-04] MEDS ORDERED: ONDANSETRON ODT 4 MG TAB.RAPDIS. PO ONE (23:00)
== END 2018-03-04 22:37 | disposition left against medical advice (07) ==
LOC: ER 22:04
DX: O26.892 Other specified pregnancy related conditions, second trimester (principal); R10.9 Unspecified abdominal pain; O21.9 Vomiting of pregnancy, unspecified; F17.200 Nicotine dependence, unspecified, uncomplicated; G89.29 Other chronic pain; Z90.49 Acquired absence of other specified parts of digestive tract; E66.01 Morbid (severe) obesity due to excess calories; Z68.43 Body mass index [BMI] 50.0-59.9, adult; Z88.5 Allergy status to narcotic agent; Z88.4 Allergy status to anesthetic agent; Z88.6 Allergy status to analgesic agent; Z88.8 Allergy status to other drugs, medicaments and biological substances
CPT/HCPCS: 99281

== ENCOUNTER 2018-03-18 11:17 | Emergency (ER) | payer SELFPAY ==
[~2018-03-18] VITALS: Ht 162.6 cm; Wt 172.4 kg
[2018-03-18 11:34] VITALS: BP 161/76
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
[2018-03-18 12:08] LABS: BARBITURATES NEG (NEG); BENZODIAZEPINES NEG (NEG); BILIRUBIN,URINE NEGATIVE (NEG); CANNABINOIDS NEG (NEG); CLARITY,URINE CLEAR; COCAINE NEG (NEG); COLOR,URINE YELLOW; METHADONE NEG (NEG); NITRITE,URINE NEGATIVE (NEG); OPIATES POS (NEG); PHENCYCLIDINE NEG (NEG); PROTEIN,URINE NEGATIVE (NEG-TRACE); UROBILINOGEN,URINE 0.2 mg/dL (0.2 mg/dL)
[2018-03-18 12:09] LABS: AMPHETAMINE/METHAMPHETAMINE NEG (NEG)
[2018-03-18 12:23] LABS: BACTERIA,URINE MANY /HPF (0-FEW); RBC,URINE OCC /HPF (0-2); SQUAMOUS EPITHELIAL CELL,UR MANY /LPF
[2018-03-18] MEDS ORDERED: CYCLOBENZAPRINE 10 MG TABLET. PO ONE (12:45)
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
[2018-03-18] MEDS ORDERED: CYCL10TA2 PO (13:23)
== END 2018-03-18 13:46 | disposition home or self-care (01) ==
LOC: ER 11:17
DX: O9A.212 Injury, poisoning and certain other consequences of external causes complicating pregnancy, second trimester (principal); S30.1XXA Contusion of abdominal wall, initial encounter; Z3A.16 16 weeks gestation of pregnancy; Z87.442 Personal history of urinary calculi; G89.29 Other chronic pain; Z90.49 Acquired absence of other specified parts of digestive tract; Z88.5 Allergy status to narcotic agent; Z88.6 Allergy status to analgesic agent; Z88.4 Allergy status to anesthetic agent; Z88.8 Allergy status to other drugs, medicaments and biological substances; V40.6XXA Car passenger injured in collision with pedestrian or animal in traffic accident, initial encounter; Y93.89 Activity, other specified; Y92.488 Other paved roadways as the place of occurrence of the external cause; Y99.8 Other external cause status
CPT/HCPCS: 76805; 80307; 81001; 81025; 87086; 99284-25

== ENCOUNTER 2018-03-30 13:38 | Emergency (ER) | payer SELFPAY ==
[~2018-03-30] VITALS: Ht 162.6 cm; Wt 176.9 kg
[~2018-03-30 13:38] MED LIST changes: +CYCL10TA2 PO
[2018-03-30] MEDS: ONDANSETRON ODT 4 MG TAB.RAPDIS. PO ONE (14:08)
--- NOTE | 2018-03-30 14:11 | PHYS DOC ---
Past Medical History Past Medical History: Kidney Stone, Other Additional Past Medical Histor: ENDOMETRIOSIS, ovarian cysts,chronic back pain, morbid obesity, DRUG SEEKING Past Surgical History: Cholecystectomy Additional Past Surgical Histo: GALLBLADDER REMOVED, laproscopic surgery Alcohol Use: None Drug Use: None Adult General Chief Complaint Chief Complaint: VOMITING IN HPI HPI Patient is a 28 year old female who presents to the ER primarily requesting pain medications. The patient is well-known to this emergency department. Review of her [facility] record reveals that she has been red flags by the [facility] for frequent opiate prescriptions from multiple providers and multiple pharmacies. Today, she presents to the ER stating that she was treated for a kidney stone at another hospital and was very yesterday. According to the patient, she was supposed to be transferred to this hospital for admission because of a kidney stone. The patient also states she was told she had a urinary tract infection but they did not start her on any antibiotics. No fever or chills. The patient is currently 18 weeks gestation. She denies any vaginal bleeding or discharge or loss of fluid or pelvic pain. Review of Systems Review of Systems Constitutional: Denies fever or chills Eyes: Denies change in visual acuity HENT: Denies nasal congestion Respiratory: Denies cough or shortness of breath Cardiovascular: No additional information not addressed in HPI GI: Denies abdominal pain, nausea, vomiting : Denies dysuria or hematuria Musculoskeletal: Denies back pain or joint pain Integument: Denies rash or skin lesions Neurologic: Denies headache All other systems were reviewed and found to be within normal limits, except as documented in this note. Current Medications Current Medications Current Medications Medications (Trade) Dose Ordered Sig/Sharri Start Time Stop Time Status Last Admin Dose Admin Nitrofurantoin Macrocrystals (Macrobid) 100 mg 1X ONCE 03/30/18 14:15 03/30/18 14:16 DC 03/30/18 14:15 100 MG Ondansetron HCl (Zofran Odt) 4 mg 1X ONCE 03/30/18 14:15 03/30/18 14:16 DC 03/30/18 14:08 4 MG Allergies Allergies Allergies Coded Allergies Type Severity Reaction Last Updated Verified codeine Allergy Intermediate 11/11/15 Yes duloxetine Allergy Intermediate hives 05/12/15 Yes fentanyl Allergy Intermediate hives 05/12/15 Yes hydrocodone Allergy Intermediate hives 10/21/17 Yes ketorolac Allergy Intermediate hives 05/12/15 Yes paroxetine Allergy Intermediate hives 05/12/15 Yes promethazine Allergy Intermediate hives 05/12/15 Yes tramadol Allergy Intermediate hives, Tolerates Morphine 05/12/15 Yes prochlorperazine Adverse Reaction Intermediate Anxiety 11/25/14 Yes Physical Exam Physical Exam Constitutional: Well developed, well nourished, no acute distress, non-toxic appearance HENT: Normocephalic, atraumatic, bilateral external ears normal, oropharynx moist Eyes: PERRLA, EOMI, conjunctiva normal Neck: Normal range of motion, no tenderness Cardiovascular:Heart rate regular rhythm, no murmur Lungs & Thorax: Bilateral breath sounds clear to auscultation Abdomen: Bowel sounds normal, soft Skin: Warm, dry, no erythema, no rash Extremities: No edema Neurologic: Alert and oriented X 3 Psychologic: Affect normal Current Patient Data Vital Signs Vital Signs Date Time Temp Pulse Resp B/P (MAP) Pulse Ox O2 Delivery O2 Flow Rate FiO2 03/30/18 14:19 108 16 156/68 (97) 94 Room Air 03/30/18 13:47 97.9 97.9 EKG EKG [] Radiology/Procedures Radiology/Procedures [] Course & Med Decision Making Course & Med Decision Making Pertinent Labs and Imaging studies reviewed. (See chart for details) Patient was evaluated in the ER today for p he waited in the ER primarily requesting opiate pain medications. I reviewed her [facility] record and promptly informed her that I would not give her any opiate pain medication either in the ER or for use at home. I told her I would be happy to treat her urinary tract infection and I did order a urinalysis to be completed. Probably following this conversation, the patient stated to the nurse that she was able to arrange a follow-up appointment later this afternoon with her primary cook apprentice and the patient requested discharge home. Patient was provided discharge papers and advised to follow-up as needed. Of note, the patient was in no obvious distress. She had a normal steady gait. Her vital signs were normal. Dragon Disclaimer Dragon Disclaimer This electronic medical record was generated, in whole or in part, using a voice recognition dictation system. Departure Departure Disposition: 01 HOME, SELF-CARE Condition: GOOD Referrals: NO PCP (PCP) MERON FARRAR DO Mar 30, 2018 14:11
[2018-03-30] MEDS: NITROFURANTOIN MONOHYD/M-CRYST 100 MG CAPSULE. PO ONE (14:15)
[2018-03-30 14:19] VITALS: BP 156/68
== END 2018-03-30 14:19 | disposition home or self-care (01) ==
LOC: ER 13:38
DX: O21.8 Other vomiting complicating pregnancy (principal); O99.212 Obesity complicating pregnancy, second trimester; Z88.5 Allergy status to narcotic agent; Z88.8 Allergy status to other drugs, medicaments and biological substances; Z90.49 Acquired absence of other specified parts of digestive tract; E66.01 Morbid (severe) obesity due to excess calories; Z3A.18 18 weeks gestation of pregnancy
CPT/HCPCS: 99283; Q0162

== ENCOUNTER 2018-06-04 20:22 | Observation (INO) | payer SELFPAY ==
[2018-06-04] MEDS ORDERED: IV RINGERS,LACTATED 1000ML 1,000 ML IV SCH ×3 (20:28)
== END 2018-06-04 21:15 | disposition home or self-care (01) ==
LOC: 3 SO LND 20:22
PROVIDERS: ADMIT Obstetrics & Gynecology; ATTEND Obstetrics & Gynecology
DX: O26.892 Other specified pregnancy related conditions, second trimester (principal); R10.9 Unspecified abdominal pain; Z87.442 Personal history of urinary calculi; Z3A.27 27 weeks gestation of pregnancy
CPT/HCPCS: G0379